=== PATIENT | female | born 1970 | race Caucasian/White ===

== ENCOUNTER → 2017-05-06 | Outpatient (CLI) | payer BC, OTHER ==
[~2017-05-06] MED LIST: AMR2 PO; CHLO0.12 MT; GLC500 PO; HYDRELX3 PO; INSDGI SC; PARO1TAB27 PO; [UNRECOGNIZED DRUG - CODE] SQ
--- NOTE | 2017-05-09 08:01 | MAMMOGRAPHY REPORT ---
BILATERAL DIGITAL SCREENING MAMMOGRAM TOMOSYNTHESIS WITH CAD: 05/06/2017 CLINICAL HISTORY: Routine screening. Patient has no complaints. TECHNIQUE: Breast tomosynthesis in addition to standard 2D mammography was performed. Current study was also evaluated with a Computer Aided Detection (CAD) system. COMPARISON: Comparison is made to exams dated: 05/04/2016 mammogram, 05/02/2015 mammogram, 04/26/2014 ma mmogram, 04/25/2013 mammogram, 04/19/2012 mammogram, and 04/01/2011 mammogram - [facility] er. BREAST COMPOSITION: There are scattered areas of fibroglandular density in both breasts. FINDINGS: No suspicious masses, calcifications, or areas of architectural distortion are noted in ei ther breast. There has been no significant interval change compared to prior exams. IMPRESSION: ACR BI-RADS CATEGORY 1: NEGATIVE There is no mammographic evidence of malignancy. A 1 year screening mammogram is recommended. The pa tient will receive written notification of the results. Approximately 10% of breast cancers are not detected with mammography. A negative mammographic report should not delay biopsy if a clinically suggestive mass is present. Silvia Smith M.D. ah/:05/06/2017 16:01:19 Warning Coordination Meteorologist: Maylin PARIKH(Cecilia)([place])([place]), [facility] letter sent: Normal 1/2 BI-RADS Code: ACR BI-RADS Category 1: Negative
== END | disposition home or self-care (01) ==
LOC: C.MAMM 15:41
PROVIDERS: ATTEND Physician Assistant
DX: Z12.31 Encounter for screening mammogram for malignant neoplasm of breast (principal)

== ENCOUNTER → 2018-05-12 | Outpatient (CLI) | payer BC, OTHER ==
--- NOTE | 2018-05-15 13:56 | MAMMOGRAPHY REPORT ---
BILATERAL DIGITAL SCREENING MAMMOGRAM TOMOSYNTHESIS WITH CAD: 05/12/2018 CLINICAL HISTORY: Routine screening. Patient has no complaints. TECHNIQUE: Breast tomosynthesis in addition to standard 2D mammography was performed. Current study w as also evaluated with a Computer Aided Detection (CAD) system. COMPARISON: Comparison is made to exams dated: 05/06/2017 mammogram, 05/04/2016 mammogram, 05/02/2015 m ammogram, 04/26/2014 mammogram, 04/25/2013 mammogram, and 04/19/2012 mammogram - [facility] er. BREAST COMPOSITION: There are scattered areas of fibroglandular density in both breasts. FINDINGS: No suspicious masses, calcifications, or areas of architectural distortion are noted in either breast . There has been no significant interval change compared to prior exams. IMPRESSION: ACR BI-RADS CATEGORY 1: NEGATIVE There is no mammographic evidence of malignancy. A 1 year screening mammogram is recommended.( 019) The patient will receive written notification of the results. Some breast cancers are not detected with mammography. A negative mammographic report should not meseret y biopsy if a clinically suggestive mass is present. Silvia Smiht M.D. ah/:05/12/2018 16:38:38 Sider: RT Francesca(R)(M), [facility] letter sent: Normal 1/2 BI-RADS Code: ACR BI-RADS Category 1: Negative
== END | disposition home or self-care (01) ==
LOC: C.MAMM 15:25
PROVIDERS: ATTEND Physician Assistant
DX: Z12.31 Encounter for screening mammogram for malignant neoplasm of breast (principal)

== ENCOUNTER 2020-03-12 05:37 | Inpatient (IN) ==
[2020-03-06 15:28] LABS: Basophils # (auto) 0.02 K/uL (0-0.2); Basophils % (auto) 0.3 %; Eosinophils # (auto) 0.15 K/uL (0-0.5); Eosinophils % (auto) 2.1 %; Hematocrit (blood only) 38.3 % (37-47); Hemoglobin 11.7 g/dL (12.0-16.0); Immature Granulocytes # (auto) 0.01 K/uL (0.00-0.02); Immature Granulocytes % (auto) 0.1 %; Lymphocytes # (auto) 1.97 K/uL (1.2-3.4); Lymphocytes % (auto) 27.9 %; Mean Corpuscular Hemoglobin 24.9 pg (25-34); Mean Corpuscular Hgb Conc 30.5 g/dL (32-36); Mean Corpuscular Volume 81.7 fL (80-100); Monocytes # (auto) 0.38 K/uL (0.11-0.59); Monocytes % (auto) 5.4 %; Neutrophils # (auto) 4.54 K/uL (1.4-6.5); Neutrophils % (auto) 64.2 %; Platelet Count 420 K/uL (130-400); RDW Coefficient of Variation 15.6 % (11.5-14.5); RDW Standard Deviation 46.3 fL (36.4-46.3); Red Blood Count 4.69 M/uL (4.2-5.4); White Blood Count 7.07 K/uL (4.8-10.8)
[2020-03-06 15:29] LABS: Appearance Urine Clear (Clear); Bilirubin Urine Negative (Negative); Blood Urine Negative (Negative); Color Urine Yellow; Glucose Urine UA 3+ (Negative); Ketones Urine Negative (Negative); Leukocyte Esterase Urine Negative (Negative); Nitrite Urine Negative (Negative); Protein Urine Negative (Negative); Specific Gravity Urine 1.022 (1.000-1.030); Urobilinogen Urine Negative (Negative)
[2020-03-06 15:38] LABS: Partial Thromboplastin Ratio 1.1; Partial Thromboplastin Time 31.2 Seconds (21.0-31.0); Prothrombin Time 10.9 Seconds (9.0-12.0)
[2020-03-06 15:51] LABS: Poikilocytosis Present; Tear Drop Cells 1+
[2020-03-06 16:01] LABS: Albumin Level 3.3 gm/dl (3.4-5.0); BUN Creatinine Ratio 14.6 (10-20); Blood Urea Nitrogen 16 mg/dl (7-18); Calcium 9.4 mg/dl (8.5-10.1); Carbon Dioxide 28 mmol/L (21-32); Chloride 103 mmol/L (98-107); Est GFR (African American) 68.8; Est GFR (Non-African American) 59.4; Glucose 239 mg/dl (70-99); Potassium 4.4 mmol/L (3.5-5.1); Sodium 136 mmol/L (136-145)
[2020-03-07 05:50] LABS: Estimated Average Glucose 209 mg/dl; Hemoglobin A1C 8.9 % (4.5-5.6)
--- NOTE | 2020-03-07 10:54 | Anesthesiology Consultation ---
Date of Service March 07, 2020 Assessment & Plan Chart Review Chart Review: Acceptable Risk for Surgery and Patient NOT seen in Pre Admission Testing - S/P Left TKA: 10/08/19: SAB x1 at L3 + PNB at [facility] - Check BSG AM DOS Surgeon to be notified of HgbA1c Low risk COVID screening, no sxs. COVID testing per surgeon. Consults Requested none History Surgery Operation Date: 03/12/20 11:20 Proposed Procedures p Right Total Knee Arthroplasty - Antonino Kevin MD Height/Weight Height: 5 ft 6 in Weight: 98.883 kg Allergies Allergy/AdvReac Type Severity Reaction Status Date / Time latex Allergy Intermediate BLISTERS Verified 03/03/20 11:44 pregabalin [From Lyrica] Allergy Intermediate AGITATION Verified 03/03/20 11:44 ragweed pollen Allergy Mild CONGESTION Verified 03/03/20 11:44 oxycodone AdvReac Vomiting, Verified 03/03/20 11:44 headache, constipation Medications Home Medications Medication Instructions Recorded Confirmed Last Taken Glucosamine Complex-MSM 2 cap PO QAM 09/03/19 03/03/20 09/24/19 Jardiance 25 mg PO QAM 09/03/19 03/03/20 10/07/19 07:45 albuterol sulfate 2 inh INHALATION Q6H PRN 09/03/19 03/03/20 Unknown bupropion HCl 150 mg PO BID 09/03/19 03/03/20 10/08/19 04:40 cholecalciferol (vitamin D3) 1,000 unit PO QAM 09/03/19 03/03/20 10/07/19 07:45 [Vitamin D3] clonazepam 1 mg PO QPM 09/03/19 03/03/20 10/07/19 21:00 gabapentin 300 mg PO HS 09/03/19 03/03/20 10/07/19 21:00 gabapentin 600 mg PO ONCE PM 09/03/19 03/03/20 10/07/19 18:00 insulin aspart U-100 [Novolog 1 sliding scale dose SUBCUT 09/03/19 03/03/20 Unknown U-100 Insulin aspart] USEASDIRECTD lidocaine 1 applic TOPICAL BID 09/03/19 03/03/20 10/06/19 21:00 lisinopril 2.5 mg PO QPM 09/03/19 03/03/20 10/07/19 21:00 loratadine 10 mg PO QAM 09/03/19 03/03/20 10/07/19 07:45 multivitamin 1 tab PO QAM 09/03/19 03/03/20 10/07/19 07:45 omega 2-mcd-syj-fish oil [Fish Oil] 1 cap PO QAM 09/03/19 03/03/20 09/24/19 turmeric root extract 500 mg PO QAM 09/03/19 03/03/20 09/24/19 vitamin B complex 1 tab PO QAM 09/03/19 03/03/20 10/07/19 07:45 vitamin E 100 unit PO QAM 09/03/19 03/03/20 09/24/19 magnesium 250 mg PO BID 10/08/19 03/03/20 09/24/19 celecoxib [Celebrex] 200 mg PO BID 30 Days #60 cap 10/10/19 03/03/20 Unknown tramadol 50 - 100 mg PO Q4H PRN #30 tab 10/10/19 03/03/20 Unknown Past Medical History Medical History Asthma inhaler PRN Bilateral polycystic ovarian syndrome Diabetes mellitus, type 2 Diabetic neuropathy both feet and right ankle - numbness and burning Dry eye syndrome Insulin pump in place Obesity Osteoarthritis Seasonal allergies Past Family History Family History Grandfather (Maternal) Family history of diabetes mellitus Mother Family history of diabetes mellitus Sister No problems noted. Other FHx: cancer FHx: colon cancer Past Surgical History Surgical History History of total knee replacement LEFT Hx of dilation and curettage Hx of laparoscopy Hx of sinus surgery Status post repair of complex wound Dog bite to face 2008, required sedation for suturing Social History Smoking Status: Never smoker Do You Dip or Chew Tobacco: No Hx Alcohol Use: Yes alcohol intake frequency: holidays/special occasions only Hx Substance Use: No substance use type: does not use Testing Laboratory Results 03/06/20 H/H 11.7/38.3 PLT 420 K 4.4 BUN 16 creat 1.08 gluc 239 INR 1.0 HgbA1c 8.9% Electrocardiogram Date: 09/11/19 Findings: + NSR @ (64bpm) Chest X-Ray Date: 09/11/19 Findings: + NAD
--- NOTE | 2020-03-11 16:03 | History and Physical Report ---
DATE OF ADMISSION: 03/12/2020 CHIEF COMPLAINT: Chronic right knee pain. HISTORY OF PRESENT ILLNESS: This is a 49-year-old female patient of Dr. Kevin'christina complaining of chronic right knee pain, longstanding, now progressively getting worse. The patient has failed conservative treatment including intraarticular injections, use of anti-inflammatories, a cane and a knee sleeve. The patient has increased pain with weightbearing activities and her pain does interfere with her activities of daily living. The patient has been diagnosed with end-stage osteoarthritis per clinical and radiographic exam in her right knee, and she wishes to proceed with a right total knee arthroplasty. PAST MEDICAL HISTORY: Diabetes mellitus with insulin, obesity. SOCIAL HISTORY: Nonsmoker, nondrinker. FAMILY HISTORY: Noncontributory. REVIEW OF SYSTEMS: Chronic right knee pain, otherwise denies any shortness of breath, chest pain, nausea, vomiting or any other joint complaints. PAST SURGICAL HISTORY: Bilateral knee arthroscopies and left total knee replacement. MEDICATIONS: 1. Bupropion 150 mg b.i.d. 2. Lisinopril 2.5 mg daily. 3. Clonazepam 1 mg 3 times daily. 4. Metformin 500 mg b.i.d. with meals. 5. Naprosyn 500 mg twice daily with food. 6. Proventil 90 mcg actuation inhaler 2 puffs every 4-6 hours p.r.n. 7. NovoLog U-100 insulin aspart as needed. 8. Gabapentin 300 mg 4 times daily. ALLERGIES: No known drug allergies. PHYSICAL EXAMINATION: GENERAL: Well-developed, well-nourished 49-year-old female in no acute distress. She is alert and oriented x3 and pleasant. HEENT: Normocephalic, atraumatic. Extraocular motions are intact. Pupils are equal and reactive to light. HEART: Regular rate and rhythm, no murmurs. LUNGS: Clear. ABDOMEN: Soft, nontender, bowel sounds present. EXTREMITIES: Right knee has a valgus deformity with mild effusion. She has crepitation with passive range of motion, limited range of motion of negative 10 to 100 degrees. She has a positive Silvia's. She is unstable with valgus stress testing. Neurologically and neurovascularly, she is intact in her right lower extremity. DIAGNOSES: 1. Right knee end-stage osteoarthritis. 2. Diabetes mellitus with insulin. 3. Obesity. PLAN: The patient was advised of her diagnosis. Indications, risks, benefits, postop course have all been reviewed. The patient wished to proceed with a right total knee arthroplasty. Necessary consent forms, preoperative testing and clearances will be obtained.
[2020-03-12] MEDS ORDERED: METOCLOPRAMIDE HCL 10 MG TABLET PO SCH (06:00)
[2020-03-12] MEDS ORDERED: LR 500ML BOLUS, THEN 15ML/HR IV SCH (06:00)
[2020-03-12] MEDS ORDERED: ROPIVACAINE 0.5% HCL/PF 150 MG, BUPIVACAINE 0.5% MPF 30 ML, EPINEPHrine 30MG/30ML (OR U... INSTIL SCH (06:00)
[2020-03-12] MEDS ORDERED: TRANEXAMIC ACID 1,000 MG **IV Intra-op IV SCH (06:00)
[2020-03-12] MEDS ORDERED: GABAPENTIN 900 MG DOSE PO SCH (06:00)
[2020-03-12] MEDS ORDERED: CEFAZOLIN 2000MG 2,000 MG/15 ML SYR IV SCH (06:00)
[2020-03-12] MEDS ORDERED: TRANEXAMIC ACID 1,000 MG **IV Pre-op IV SCH (06:00)
[2020-03-12] MEDS ORDERED: CeleBREX 200 MG CAP PO SCH (06:00)
[2020-03-12] MEDS ORDERED: FAMOTIDINE 20 MG TAB PO SCH (06:00)
[2020-03-12] MEDS ORDERED: ACETAMINOPHEN 500 MG TAB PO SCH (06:00)
[2020-03-12] MEDS ORDERED: BUPIVACAINE/EPINEPHRINE 0.25% 1:200,000 30 ML VIAL ONE (06:29)
[2020-03-12] MEDS ORDERED: ORTHO JOINT ANESTHETIC ONE (06:32)
[2020-03-12] MEDS ORDERED: BACITRACIN INJ 50,000 UNIT VIAL ONE (06:32)
[2020-03-12] MEDS ORDERED: BUPIVACAINE 0.5 % 5 MG/1 ML MPF 30ML VIAL ONE (06:35)
[2020-03-12] MEDS ORDERED: MIDAZOLAM HCL 1 MG/ML 2ML VIAL ONE (06:40)
[2020-03-12] MEDS ORDERED: fentaNYL citrate 100 MCG/2 ML VIAL ONE (06:40)
[2020-03-12] MEDS ORDERED: ONDANSETRON INJ 2 MG/ML 2 ML VIAL IV PRN ×2 (06:41→10:50)
[2020-03-12] MEDS ORDERED: ePHEDrine sulfate 50 MG/ML AMP IV PRN (06:41)
[2020-03-12] MEDS ORDERED: ATROPINE SULFATE 0.1 MG/ML 10ML SYR IV PRN (06:41)
[2020-03-12] MEDS ORDERED: fentaNYL citrate 100 MCG/2 ML VIAL IV PRN (06:41)
[2020-03-12] MEDS ORDERED: HYDROmorphone INJ 2 MG/ML SYR/VIAL IV PRN (06:41)
--- NOTE | 2020-03-12 07:00 | History & Physical Bridge Note ---
Date of Service March 12, 2020 History & Physical Bridge Note I have examined the patient, reviewed the History & Physical and in the interval since the performance of the History & Physical I have noted the following changes of clinical significance: no changes noted
[2020-03-12] MEDS ORDERED: ONDANSETRON INJ 2 MG/ML 2 ML VIAL ONE (07:39)
[2020-03-12] MEDS ORDERED: PHENYLEPHRINE 100MCG/ML 5ML SYR ONE (07:39)
[2020-03-12] MEDS ORDERED: LIDOCAINE HCL 2% 2 ML VIAL/AMP(20MG/ML) INFIL ONE (07:39)
[2020-03-12] MEDS ORDERED: PROPOFOL IV EMULSION 10 MG/ML 20 ML VIAL IV ONE ×3 (07:39→08:49)
[2020-03-12] MEDS ORDERED: ePHEDrine sulfate 50 MG/ML SYR ONE (07:39)
--- NOTE | 2020-03-12 08:56 | Post Operative Brief Note ---
Immediate Post Op Note v1 Date of Surgery March 12, 2020 Pre & Post Diagnosis Operation Date: 03/12/20 07:00 Pre-Op Diagnosis: RIGHT KNEE OSTEOARTHRITIS Post-Op Diagnosis: RIGHT KNEE OSTEOARTHRITIS I identified the patient and participated in the time-out.: Yes Procedure Operation Date: 03/12/20 07:00 Actual Procedures p Right Total Knee Arthroplasty, Cemented(Right), lateral release- Antonino Kevin MD Surgeon Antonino Kevin MD Buffet Waiter/Waitress SHERI Castano Estimated Blood Loss 2 Findings Consistent with Post-Op Diagnosis Specimens Bone cuts Drains Hemovac Drain Anesthesia Type MAC Spinal Regional Complications none Disposition Accompanied Patient To Recovery: No Disposition: Recovery Room Overlapping Procedure I was present for: the critical portions of procedure.
--- NOTE | 2020-03-12 10:10 | XRay Report ---
XR knee RT 1 or 2V routine CLINICAL HISTORY: Surgical Post Op COMPARISON: None. DISCUSSION: Anatomic alignment post total right knee arthroplasty. Could contact between prosthetic a nd underlying bone. Expected postoperative soft tissue change IMPRESSION: Anatomic alignment post total right knee arthroplasty. ACT 112: Negative or not required by law. The above report was generated using voice recognition software. It may contain grammatical, syntax or spelling errors. Electronically signed by: Pavel Kim M.D. 03/12/2020 10:09 AM
--- NOTE | 2020-03-12 10:16 | Anesthesiology Progress Note ---
Date of Service March 12, 2020 Anesthesia Post Procedure Vital Signs Vital Signs: Temp Pulse Pulse Resp BP Pulse Ox 03/12/20 10:10 71 17 110/58 L 94 03/12/20 10:00 69 11 L 108/59 L 99 03/12/20 09:50 36.4 C L 69 18 99/59 L 99 03/12/20 09:40 73 22 103/50 L 100 03/12/20 09:30 76 22 95/61 L 97 03/12/20 09:24 36.3 C L 75 16 108/54 L 97 03/12/20 06:40 77 18 113/61 99 03/12/20 06:26 37.5 C 82 20 113/59 L 97 Transfer of Care Handoff Completed per policy Notes Mental Status: alert / awake / arousable and participated in evaluation Patient Amnestic to Procedure: Yes Nausea / Vomiting: adequately controlled Pain: adequately controlled Airway Patency, RR, SpO2: stable & adequate BP & HR: stable & adequate Hydration State: stable & adequate Anesthetic Complications: no major complications apparent and Pt Satisfied with anesthetic care
[2020-03-12] MEDS ORDERED: bisacodyL 10 MG SUPP PR PRN (10:50)
[2020-03-12] MEDS ORDERED: NALOXONE HCL 0.4 MG/1 ML VIAL/CARP IV PRN (10:50)
[2020-03-12] MEDS ORDERED: HYDROmorphone INJ 0.5 MG/0.5 ML SYR IV PRN (10:50)
[2020-03-12] MEDS ORDERED: MAGNESIUM HYDROXIDE SUSP 30 ML UDC PO PRN (10:50)
[2020-03-12] MEDS ORDERED: ALBUTEROL HFA 8 GM INHALER INH PRN (10:53)
[2020-03-12] MEDS ORDERED: PHARMACY GLYCEMIC MGMT CONSULT PRN (10:58)
--- NOTE | 2020-03-12 11:43 | Hospitalist Consultation ---
Date of Consultation March 12, 2020 Assessment & Plan (1) Status post total knee replacement, left: - POD#[address] Kevin - activity and wound care orders as per ortho - pain control with bowel regimen - PT/OT - monitor H/H for acute blood loss anemia and transfuse blood products PRN - Minimal blood loss (2) Diabetes mellitus, type 2: -hgb a1c 7.6 11/2019 -on insulin pump, will continue (3) HTN (hypertension): -BP controlled, continue lisinopril (4) DVT prophylaxis: -Aspirin 81 mg twice daily as per orthopedics Thank you for this consultation. We will follow the patient with you during their hospital stay. You can reach a member of the [facility] Hospitalist Team 11/04 via pager @ [phone]. Supervising Physician Co-Signing Physician Notes Attending addendum: Patient seen and examined care coordinated with Ivory SOTO This is a 49-year-old female with past medical history of type 2 diabetes on insulin pump, DJD of knee Underwent elective left knee surgery/total left knee replacement today [facility]oped[facility] for postop medical management Patient seen at bedside at room 318/1 Comfortable, reports of numbness on the left foot and ankle wearing off, pain is still tolerable on left knee surgical site No complaint of shortness of breath, no cough, no chest pain, no dizzy spell or palpitation No fever or chills Physical exam: Focused General: No sign of distress, awake alert oriented, conversing comfortably Heart: Regular S1-S2, lungs clear to auscultate no wheeze or rales Extremities: Status post left TKA, drain present, draining serosanguineous drainage, normal pulse on left lower extremity Right lower extremity: Normal exam Assessment and plan: Status post left TKA: Continue management as per orthopedics Postop pain appears to be well-controlled for now Type 2 diabetes: On insulin pump Patient follows at [facility] for insulin pump management recent Hemoglobin A1c on 03/06/2020 was 8.9 suggestive of poor control Pharmacy consulted for glycemic management Last BSG 130s, Discussed with pharmacy: Patient will continue with her insulin pump with previous settings With any evidence of postop hyperglycemia, pharmacy will take over for glycemic management /which includes - discontinuation of insulin pump/ starting on basal Lantus and insulin sliding scale Patient is agreeable with the plan Please refer to further documentation by Ivory SOTO for discussion of other chronic issues Thank you for allowing us to participate in the care of the patient, we will continue to follow her during her hospital stay Bre Preciado MD History of Present Illness Reason for Consultation: Postop medical management Requesting Physician: Dr. Kevin Attending Physician: Antonino Kevin MD History of Present Illness 49-year-old female with PMH DM type II on insulin pump, HTN, and other problems listed below who is status post right total knee arthroplasty today by Dr. Kevin. Postoperative, the patient is doing well. She reports her pain is well controlled. She reports some mild residual numbness to lower extremities. She denies chest pain or shortness of breath. No lightheadedness or dizziness. She denies abdominal pain or nausea. She has not voided some surgery. Allergies Allergy/AdvReac Type Severity Reaction Status Date / Time latex Allergy Intermediate BLISTERS Verified 03/12/20 05:57 pregabalin [From Lyrica] Allergy Intermediate AGITATION Verified 03/12/20 05:57 ragweed pollen Allergy Mild CONGESTION Verified 03/12/20 05:57 oxycodone AdvReac Vomiting, Verified 03/12/20 05:57 headache, constipation Home Medications Home Medications Medication Instructions Recorded Confirmed Type Glucosamine Complex-MSM 2 cap PO QAM 09/03/19 03/12/20 History Jardiance 25 mg PO QAM 09/03/19 03/12/20 History albuterol sulfate 2 inh INHALATION Q6H PRN 09/03/19 03/03/20 History bupropion HCl 150 mg PO BID 09/03/19 03/12/20 History cholecalciferol (vitamin D3) 1,000 unit PO QAM 09/03/19 03/12/20 History [Vitamin D3] clonazepam 1 mg PO QPM 09/03/19 03/12/20 History gabapentin 300 mg PO HS 09/03/19 03/12/20 History gabapentin 600 mg PO ONCE PM 09/03/19 03/12/20 History insulin aspart U-100 [Novolog 1 sliding scale dose SUBCUT 09/03/19 03/03/20 History U-100 Insulin aspart] USEASDIRECTD lidocaine 1 applic TOPICAL BID 09/03/19 03/12/20 History lisinopril 2.5 mg PO QPM 09/03/19 03/12/20 History loratadine 10 mg PO QAM 09/03/19 03/12/20 History multivitamin 1 tab PO QAM 09/03/19 03/12/20 History omega 9-cfo-wsy-fish oil [Fish Oil] 1 cap PO QAM 09/03/19 03/12/20 History turmeric root extract 500 mg PO QAM 09/03/19 03/12/20 History vitamin B complex 1 tab PO QAM 09/03/19 03/12/20 History vitamin E 100 unit PO QAM 09/03/19 03/12/20 History magnesium 250 mg PO BID 10/08/19 03/12/20 History celecoxib [Celebrex] 200 mg PO BID 30 Days #60 cap 10/10/19 03/12/20 Rx tramadol 50 - 100 mg PO Q4H PRN #30 tab 10/10/19 03/03/20 Rx aspirin 81 mg PO DAILY 03/12/20 03/12/20 History Patient History Medical History Asthma inhaler PRN Bilateral polycystic ovarian syndrome Diabetes mellitus, type 2 Diabetic neuropathy both feet and right ankle - numbness and burning Dry eye syndrome HTN (hypertension) Insulin pump in place Obesity Osteoarthritis Seasonal allergies Surgical History History of total knee replacement LEFT Hx of dilation and curettage Hx of laparoscopy Hx of sinus surgery Status post repair of complex wound Dog bite to face 2008, required sedation for suturing Family History Grandfather (Maternal) Family history of diabetes mellitus Mother Family history of diabetes mellitus Sister No problems noted. Other FHx: cancer FHx: colon cancer Social History Preferred Language: Mongolian Communication Ability: Effective Senior Software Development Manager Required: No Beliefs That Will Affect Care: None Current Living Situation: Significant Other Feels Safe at Home: Yes Safety Concerns: Feels Safe At This Time Smoking Status: Never smoker Do You Dip or Chew Tobacco: No ; Second Hand Exposure: No ; Hx Alcohol Use: Yes Hx Substance Use: No Review of Systems Review of Systems: ROS per HPI, all other systems reviewed and negative Physical Exam Constitutional: WD/WN, vitals as above Eyes: PERRL, conjunctivae normal, anicteric sclerae ENMT: external ear and nose normal, oropharynx normal Respiratory: normal respiratory effort, lungs clear to auscultation Cardiovascular: Rate/Rhythm: regular rate and regular rhythm Vessels: normal peripheral pulses Extremities: no edema Gastrointestinal (Abdomen): normal bowel sounds, soft, nontender, no hepatosplenomegaly Musculoskeletal: S/p right knee surgery, surgical dressing dry and intact, drain in place draining bloody drainage, CSM checks intact RLE Skin: no rashes, warm and dry Neurologic: PERRL, EOMI, accommodation nl, no face palsy, no dysarthria Psychiatric: A+Ox3, euthymic affect Results & Data Results & Data ([facility]) Vital Signs (Past 12 Hours) Vital Signs Temp Pulse Pulse Resp BP Pulse Ox 03/12/20 11:37 69 16 118/71 99 03/12/20 11:05 70 16 117/73 99 03/12/20 10:35 36.6 C 73 18 103/64 97 03/12/20 10:20 74 18 109/50 L 98 03/12/20 10:10 71 17 110/58 L 94 03/12/20 10:00 69 11 L 108/59 L 99 03/12/20 09:50 36.4 C L 69 18 99/59 L 99 03/12/20 09:40 73 22 103/50 L 100 03/12/20 09:30 76 22 95/61 L 97 03/12/20 09:24 36.3 C L 75 16 108/54 L 97 03/12/20 06:40 77 18 113/61 99 03/12/20 06:26 37.5 C 82 20 113/59 L 97
[2020-03-12] MEDS: SODIUM CHLORIDE 0.9% 1000ML 1,000 ML IV SCH ×2 (11:46→21:42)
[2020-03-12] MEDS ORDERED: GLUCOSE 40% GEL 15 GM TUBE PO PRN (12:45)
[2020-03-12] MEDS ORDERED: DEXTROSE 50% 50 ML SYRINGE IV PRN (12:45)
[2020-03-12] MEDS ORDERED: GLUCAGON FOR INJ 1 MG VIAL SQ PRN (12:45)
[2020-03-12] MEDS ORDERED: INSULIN ASPART 100 UNITS/ML VIAL SC PRN (12:45)
[2020-03-12] MEDS ORDERED: GLUCOSE 10 TABS/TUBE PO PRN (12:45)
[2020-03-12] MEDS ORDERED: CARBOHYDRATES FOR HYPOGLYCEMIA PO PRN (12:45)
--- NOTE | 2020-03-12 12:52 | Pharmacy Report ---
Glycemic Control Consultation - Date of Service March 12, 2020 - Scope Scope: Glycemic Pharmacist consulted for glycemic control and to write orders per [facility] inpatient glycemic control protocol. - Objective Weight: 102.92 kg Accuchecks BSG (last 24hrs): 03/12/20 03/12/20 03/12/20 05:59 09:26 12:07 POC Glucose 131 H 134 H 132 H HbA1c: Hemoglobin A1c 8.9 % (4.5-5.6) H 03/06/20 14:30 - Recent Pertinent Medications Outpatient Anti-diabetic Regimen: * Novolog Insulin Pump: * Basal Rate = 1.3 units/hr * Correction Factor = 30 * Carb Ratio = 8 * Average TDD unknown * Jardiance 25 mg PO daily * A1c = 8.9% from 03/06/20, increased from 7.6% in September 2019 Risk Factors for Insulin Resistance: * Recent Surgery: * POD #0 R TKA * Diet: * T2DM - Assessment & Plan Assessment & Plan: ASSESSMENT: * 49 yo F admitted secondary to right total knee arthroplasty * PMHx significant for T2DM, HTN, PCOS, neuropathy, osteoarthritis * POD #0, no systemic steroids administered perioperatively, BSGs are 130s post-op, T2DM diet ordered * Discussed continuing current insulin pump setting with patient, patient is comfortable with utilizing this. Will monitor for temporary changes/increases needed while in the hospital. PLAN FOR INPATIENT GLYCEMIC CONTROL: * Holding outpatient oral diabetes medications * Pt is to manage BSGs with insulin pump per outpatient settings. * RN will have patient read and sign agreement [id number] Insulin Pump Therapy Patient Agreement. * RN will provide and explain form [id number] Flowsheet for Patient * Patient will document their insulin dose given on NS-824 which is kept at the bedside, available to caregivers upon request, and which becomes part of the permanent medical record. * If at any time the patients condition evidences that he/she is not able to manage the insulin pump (i.e. frequent hypo/hyperglycemia) Pharmacy will assume glycemic control by discontinuing the pump & managing with SQ basal bolus insulin regimen for the interim. * Omnipod Novolog Insulin Pump: * Basal Rate = 1.3 units/hr * Correction Factor = 30 * Carb Ratio = 8 * Please note that the plan above was derived based on current level of insulin resistance and hospital stress. These recommendations are appropriate for inpatient admission only. Plan of care upon discharge will need to be reassessed to avoid potential outpatient hypo/hyperglycemia. Thank you.
[2020-03-12] MEDS: ACETAMINOPHEN 500 MG TAB PO SCH ×2 (14:07→21:45)
--- NOTE | 2020-03-12 15:54 | Operative Report ---
Post Operative Report Pre & Post Diagnosis Operation Date: 03/12/20 07:00 Pre-Op Diagnosis: RIGHT KNEE OSTEOARTHRITIS Post-Op Diagnosis: RIGHT KNEE OSTEOARTHRITIS I identified the patient and participated in the time-out.: Yes Procedure Operation Date: 03/12/20 07:00 Actual Procedures p Right Total Knee Arthroplasty, Cemented(Right) - Antonino Kevin MD Surgeon Antonino Kevin MD Bilingual Hr Generalist SHERI Castano Estimated Blood Loss 2 Findings Consistent with Post-Op Diagnosis Specimens Bone cuts Drains 2 Hemovac Anesthesia Type MAC Spinal Regional Complications none Disposition Accompanied Patient To Recovery: No Disposition: Recovery Room Indications 49-year-old female with severe tricompartmental osteoarthritis of right knee failed conservative management. Patient had a more severe left knee and underwent successful left knee replacement. Patient is doing well with that knee procedure and chooses to proceed with the right knee procedure. Patient is a valgus knee zfyd-yq-afil lateral compartment but has severe tricompartmental OA changes. Description of Procedure The patient was taken to the operating room and anesthetized under spinal MAC regional. Patient was placed supine on the the operating table. A pneumatic tourniquet was placed about the right upper thigh. The knee exam demonstrated valgus alignment to the knee around 20 degrees. Patient has a 10 degree flexion contracture and flexion of 125 degrees. There was some MCL laxity and valgus alignment due to bone loss lateral compartment.. The involved leg was elevated exsanguinated with Esmarch bandage and the pneumatic tourniquet was raised to 300 millimeters mercury. A longitudinal incision was made across the anterior knee. Skin flaps were elevated. An incision was made into the medial retinaculum and extended up into the mid third of the quadriceps tendon and extended down to the tibial tubercle. Intra-articular findings demonstrated severe tricompartmental osteoarthritis. Yegm-gg-yeig the lateral compartment with some bone loss tfkh-uz-tuel medial compartment on the lateral aspect medial femoral condyle and grade 4 patellofemoral OA. There are tricompartmental osteophytes. Patient had mucoid degeneration of her ACL. There was a chronic displaced lateral meniscus tear. The knee was exposed by excising cruciate ligaments and menisci. The infrapatellar fat pad was resected. The fat pad over the anterior femur at the upper aspect of the articular surface was resected for placement of the component in that area. A subperiosteal peel lateral release was performed around the patella The [employer] Chalk[employer] total knee arthroplasty system was utilized for the procedure. The drill hole was made into the femur and intramedullary guide gilberto was placed in the distal femoral cut was adjusted to resect a +2 distal cut at a 6 degree valgus. The distal femoral cut was made. The size 4, 5 in 1 cutting block was placed. The anterior posterior and chamfer cuts were made. The knee was extended and a free hand cut technique was performed to the patella. The patella with was measured and the width was reproduced using a 32 symmetrical patella component. 3 drill holes are made for the patella component pegs. The tibia was then subluxed. The external tibial cutting guide was pinned in position and the proximal tibial cut was made with the oscillating saw. The size 4 tibial trial was externally rotated in line with the tibial tubercle and pinned in position. The punch for the stem was used. The femoral trial was inserted and centered the notch cutting devices were used and the collet was placed. Tibial trials were used for the insert. The size 13 high flex trial gave balanced ligaments through full range of motion. Patella tracking was assessed with range of motion. The patella tracked centrally through mid motion but at the final deep flexion there was some lateral translation so I felt a lateral release would improve this and a lateral lease performed leaving remainder the synovium intact improved the tracking centrally through full motion. The trials were removed. The Orthomix anesthetic cocktail was injected per protocol. The cut bone surfaces and soft tissue were copiously irrigated with antibiotic solution with bacitracin. The final components were cemented with Simplex cement. The final components were [employer] [facility] size 4 right posterior stabilized femoral component, 4 primary tibial baseplate, 13 mm high flex polyethylene tibial bearing insert, 32 symmetrical patella.. While the cement cured the Betadine soak was used per protocol. When the cement cured the knee was copiously irrigated with pulsatile lavage antibiotic solution with bacitracin. 2 drains were brought out laterally connected to Hemovac. The quadriceps tendon and medial retinaculum were closed with interrupted [id number] #1 Vicryl sutures. The knee was taken through full range of motion and repair was secure. The subcutaneous tissues were closed with 2-0 Vicryl sutures. The skin was closed with pat. A sterile dressing was applied. The tourniquet was let down and the patient had good capillary refill to the extremity. The patient tolerated the procedure well. My physician health education assistant SHERI Castano assisted in the procedure including prep ping draping leg positioning soft tissue retraction instrument management and assisted in the closure ,dressings application and will participate in postoperative care the patient. I attest to the content of the Intraoperative Record and any orders documented therein. Any exceptions are noted below.
[2020-03-12] MEDS: CEFAZOLIN 2000MG 2,000 MG/15 ML SYR IV SCH ×2 (17:06→23:39)
[2020-03-12] MEDS ORDERED: Nursing to Pharmacy Communication SCH (17:30)
[2020-03-12] MEDS ORDERED: GABAPENTIN 300 MG CAP PO SCH ×2 (18:00→21:00)
[2020-03-12] MEDS: NovoLOG INSULIN PUMP SCH ×2 (18:36→21:59)
[2020-03-12] MEDS ORDERED: SENNA 8.6 MG TAB PO SCH (21:00)
[2020-03-12] MEDS ORDERED: clonazePAM 1 MG TAB PO SCH (21:00)
[2020-03-12] MEDS: CeleBREX 200 MG CAP PO SCH (21:43)
[2020-03-12] MEDS: ASPIRIN 81 MG ECTAB PO SCH (21:44)
[2020-03-12] MEDS: MAGNESIUM OXIDE 400 MG TAB PO SCH (21:44)
[2020-03-12] MEDS: BuPROPion SR 150 MG TABCR PO SCH (21:45)
[2020-03-12] MEDS: LIDOCAINE HCL 5% OINT 30 GM TUBE TOP SCH (21:45)
[2020-03-12] MEDS: DOCUSATE SODIUM 100 MG CAP PO SCH (21:49)
[2020-03-12] MEDS: HYDROmorphone HCL 2 MG TAB PO PRN (21:54)
[2020-03-13] MEDS: HYDROmorphone HCL 2 MG TAB PO PRN ×3 (02:20→14:02)
[2020-03-13] MEDS: ACETAMINOPHEN 500 MG TAB PO SCH ×2 (06:20→14:04)
[2020-03-13 06:58] LABS: Hematocrit (blood only) 31.4 % (37-47); Hemoglobin 9.2 g/dL (12.0-16.0); Mean Corpuscular Hemoglobin 24.1 pg (25-34); Mean Corpuscular Hgb Conc 29.3 g/dL (32-36); Mean Corpuscular Volume 82.2 fL (80-100); Platelet Count 367 K/uL (130-400); RDW Coefficient of Variation 15.5 % (11.5-14.5); RDW Standard Deviation 46.6 fL (36.4-46.3); Red Blood Count 3.82 M/uL (4.2-5.4); White Blood Count 7.35 K/uL (4.8-10.8)
[2020-03-13 07:28] LABS: BUN Creatinine Ratio 15.3 (10-20); Calcium 8.5 mg/dl (8.5-10.1); Creatinine Clr Calc Pharmacy 93.8 ml/min; Est GFR (African American) 90.7; Est GFR (Non-African American) 78.2; Potassium 4.2 mmol/L (3.5-5.1)
--- NOTE | 2020-03-13 08:16 | Orthopedic Progress Note ---
Date of Service March 13, 2020 Assessment & Plan (1) Arthritis of right knee: POD #1, Right TKA. PT/ OT DT proph- ASA D/C plans - Home today with OPPT. Admission and Anticipated Discharge Date Admission Date: March 12, 2020 Subjective POD #1, Feeling well. Pain controlled well. Denies SOB/ CP/ N/V. Would like to D/C home today. Labs stable. Heme vac output around 120 last shift. Physical Exam Physical Exam: Right knee dressings c/d/i, some bloody seepage. Toes/ ankle mobile. No calf tenderness. A&Ox3. Results & Data ([facility]) Vital Signs (Past 12 Hours) Vital Signs Temp Pulse Resp BP Pulse Ox 03/13/20 07:28 36.6 C 63 16 111/68 97 03/13/20 02:58 36.8 C 74 16 101/63 95 03/12/20 23:36 36.8 C 82 16 117/69 96 03/12/20 20:59 36.6 C 77 18 125/67 98
[2020-03-13] MEDS ORDERED: GLUCOSAMINE MSM MAGNESIUM VITC PO SCH (09:00)
[2020-03-13] MEDS ORDERED: VITAMIN B COMPLEX TAB PO SCH (09:00)
[2020-03-13] MEDS ORDERED: LORATADINE 10 MG TAB PO SCH (09:00)
[2020-03-13] MEDS ORDERED: MULTIVITAMIN TAB PO SCH ×2 (09:00)
[2020-03-13] MEDS ORDERED: TOCOPHERYL, DL-ALPHA 100 UNITS CAP PO SCH (09:00)
[2020-03-13] MEDS ORDERED: CHOLECALCIFEROL 1,000 UNITS 25 MCG TAB PO SCH (09:00)
--- NOTE | 2020-03-13 09:13 | Hospitalist Progress Note ---
Date of Service March 13, 2020 Assessment & Plan (1) Status post total knee replacement, left: POD#[address] Kevin EBL 2ml; Hemovac 120 ml tolerated procedure well pain/wound management per ortho activity and therapy as directed by ortho continue incentive spirometry H&H 9.2 and 31.4 (preop hemoglobin 11.7 and 38.3) ASA BID per ortho for dvt prophylaxis (2) Anemia: H&H stable pt with minimal blood loss drop in h/h likely dilutional h/h 9.2 and 31.4 (3) Diabetes mellitus, type 2: hgb a1c 7.6 11/2019 on insulin pump, will continue BSG 129 this morning (4) HTN (hypertension): BP controlled, continue lisinopril (5) DVT prophylaxis: Aspirin 81 mg twice daily as per orthopedics Pt was seen and examined in collaboration with Dr. Reynolds, please see addendum Thank you for this consultation. We will follow the patient with you during their hospital stay. You can reach a member of the [facility] Hospitalist Team 11/04 via pager @ [phone]. Admission and Anticipated Discharge Date Admission Date: March 12, 2020 Supervising Physician Co-Signing Physician Notes Attending addendum The patient was seen and examined in medical floor She is a status post right total knee arthroplasty Complains today of some pain in the right knee Denies any other symptoms On examination Hemodynamically stable Chest-clear to auscultate bilaterally Heart-S1-S2 irregular Abdomen-benign Extremities-status post right knee arthroplasty otherwise unremarkable Her labs and imaging studies reviewed Medically stable to be discharged Agree with assessment and plan as outlined above by CARMINE Mccollum Dr Subjective Patient was seen and examined in room 318. Follow-up POD #[address] Kevin. Overall feels well this morning. Anticipating discharge later today. BSG was 129 this a.m. She is insulin dependent and has a pump on L tricep. Denies f/c/s, dizziness, lightheaded, chest pain, sob, n/v/abdominal pain. +Flatus. Mild R knee incisional discomfort. Offers no acute concerns. Review of Systems Review of Systems: All systems reviewed & are unremarkable except as noted in HPI & below Physical Exam Physical Exam: Gen: WD/WN, NAD, F, A&O x3 HEENT: Normocephalic, atraumatic, conjunctivae moist, sclerae anicteric, mucous membranes moist. Lung: Clear to Auscultation bilaterally, no wheezes/rales/rhonchi Heart: Regular rate, regular rhythm, no murmurs, rubs, or gallops Abdomen: Soft, NT, ND +BS x 4 Extremities: RLE edema, Dressing CDI, no erythema, +hemovac in place, No edema to LLE, L TKA scar noted, L tricep insulin pump noted Skin: Warm, no rash, negative turgor. Results & Data Results & Data ([facility]) Vital Signs (Past 12 Hours) Vital Signs Temp Pulse Resp BP Pulse Ox 03/13/20 07:28 36.6 C 63 16 111/68 97 03/13/20 02:58 36.8 C 74 16 101/63 95 03/12/20 23:36 36.8 C 82 16 117/69 96 Laboratory Results Short CBC 03/13/20 Range/Units 06:29 WBC 7.35 (4.8-10.8) K/uL Hgb 9.2 L (12.0-16.0) g/dL Hct 31.4 L (37-47) % Plt Count 367 (130-400) K/uL BMP 03/13/20 06:29 Sodium 141 Potassium 4.2 Chloride 108 H Carbon Dioxide 26 BUN 13 Creatinine 0.86 Glucose 129 H Calcium 8.5 Medications Administered Acetaminophen (Tylenol) 1,000 mg PO Q8 [facility] Stop: 04/11/20 13:59 Last Admin: 03/13/20 06:20 Dose: 1,000 mg Documented by: [id number] Admin: 03/12/20 21:45 Dose: 1,000 mg Documented by: [id number] Admin: 03/12/20 14:07 Dose: 1,000 mg Documented by: [id number] Aspirin (Ecotrin Ectab) 81 mg PO BID [facility] Stop: 04/11/20 20:59 Last Admin: 03/12/20 21:44 Dose: 81 mg Documented by: [id number] Bupropion HCl (Wellbutrin-Sr) 150 mg PO BID [facility] Stop: 04/11/20 20:59 Last Admin: 03/12/20 21:45 Dose: 150 mg Documented by: [id number] Celecoxib (Celebrex) 200 mg PO BID [facility] Stop: 04/11/20 20:59 Last Admin: 03/12/20 21:43 Dose: 200 mg Documented by: [id number] Clonazepam (Klonopin) 1 mg PO QPM [facility] Stop: 04/11/20 20:59 Last Admin: 03/12/20 21:44 Dose: 1 mg Documented by: [id number] Docusate Sodium (Colace) 100 mg PO BID [facility] Stop: 04/11/20 20:59 Last Admin: 03/12/20 21:49 Dose: Not Given Documented by: [id number] Hydromorphone HCl (Dilaudid) 0.5 mg IV Q4H PRN PRN Reason: Pain or Pre PT Stop: 03/26/20 10:49 Last Admin: 03/12/20 15:57 Dose: 0.5 mg Documented by: [id number] Hydromorphone HCl (Dilaudid) 2 - 4 mg PO Q4H PRN PRN Reason: Pain Stop: 03/26/20 10:49 Last Admin: 03/13/20 02:20 Dose: 2 mg Documented by: [id number] Admin: 03/12/20 21:54 Dose: 4 mg Documented by: [id number] Insulin Aspart (Novolog Insulin Pump) 1 ea N/A [facility]; Protocol Stop: 04/11/20 16:29 Last Admin: 03/12/20 21:59 Dose: 1 ea Documented by: [id number] Admin: 03/12/20 18:36 Dose: 1 ea Documented by: [id number] Lidocaine (Xylocaine 5% Oint) 1 appln TOP BID [facility] Stop: 04/11/20 20:59 Last Admin: 03/12/20 21:45 Dose: 1 appln Documented by: [id number] Lisinopril (Zestril) 2.5 mg PO QPM [facility] Stop: 04/11/20 20:59 Last Admin: 03/12/20 21:44 Dose: 2.5 mg Documented by: [id number] Magnesium Oxide (Mag-Ox) 400 mg PO BID [facility] Stop: 04/11/20 20:59 Last Admin: 03/12/20 21:44 Dose: 400 mg Documented by: [id number] Sennosides (Senokot) 17.2 mg PO HS [facility] Stop: 04/11/20 20:59 Last Admin: 03/12/20 21:54 Dose: 17.2 mg Documented by: [id number] Discontinued Medications Acetaminophen (Tylenol) 1,000 mg PO PREOP [facility] Stop: 03/12/20 18:00 Last Admin: 03/12/20 06:16 Dose: 1,000 mg Documented by: [id number] Bacitracin (Bacitracin) Confirm Administered Dose 50,000 units .ROUTE .[facility] Stop: 03/12/20 06:33 Last Admin: 03/12/20 08:35 Dose: 50,000 units Documented by: [id number] Celecoxib (Celebrex) 200 mg PO PREOP [facility] Stop: 03/12/20 18:00 Last Admin: 03/12/20 06:17 Dose: 200 mg Documented by: [id number] Famotidine (Pepcid) 20 mg PO PREOP [facility] Stop: 03/12/20 18:00 Last Admin: 03/12/20 11:36 Dose: Not Given Documented by: [id number] Gabapentin (Neurontin) 900 mg PO PREOP [facility] Stop: 03/12/20 18:00 Last Admin: 03/12/20 06:17 Dose: 900 mg Documented by: [id number] Lactated Ringer's (Lr) 1,000 mls @ 15 mls/hr IV .Q24H [facility] Stop: 03/12/20 18:00 Last Infusion: 03/12/20 06:56 Dose: 0 mls/hr Documented by: [id number] Admin: 03/12/20 06:16 Dose: 15 mls/hr Documented by: [id number] Cefazolin Sodium (Ancef 2000mg) 2,000 mg in 15 mls @ 3.75 mls/min IV PREOP [facility]; Protocol Stop: 03/12/20 18:00 Last Admin: 03/12/20 06:56 Dose: 3.75 mls/min Documented by: [id number] Ropivacaine 150 mg/Bupivacaine HCl 30 ml/Epinephrine HCl 0.15 mg/Ketorolac Tromethamine 30 mg/Dexamethasone 4 mg/ Ketamine HCl 10 mg/ Clonidine HCl 100 mcg/ Sodium Chloride 93.35 mls @ 0 mls/hr INSTIL PREOP [facility] Stop: 03/12/20 06:01 Last Admin: 03/12/20 08:35 Dose: 93.3 mls/hr Documented by: [id number] Tranexamic Acid (Tranexamic Acid / 0.7% Nacl) 1,000 mg in 100 mls @ 600 mls/hr IV TODAY@0600 [facility] Stop: 03/12/20 18:00 Last Infusion: 03/12/20 07:08 Dose: 0 mls/hr Documented by: [id number] Admin: 03/12/20 06:58 Dose: 600 mls/hr Documented by: [id number] Tranexamic Acid (Tranexamic Acid / 0.7% Nacl) 1,000 mg in 100 mls @ 600 mls/hr IV TODAY@0600 [facility] Stop: 03/12/20 18:00 Last Infusion: 03/12/20 11:36 Dose: 0 mls/hr Documented by: [id number] Admin: 03/12/20 09:06 Dose: 600 mls/hr Documented by: [id number] Sodium Chloride (Nss 1000ml) 1,000 mls @ 100 mls/hr IV .Q10H [facility] Stop: 03/13/20 06:00 Last Infusion: 03/13/20 06:42 Dose: 0 mls/hr Documented by: [id number] Admin: 03/12/20 21:42 Dose: 100 mls/hr Documented by: [id number] Infusion: 03/12/20 21:42 Dose: 100 mls/hr Documented by: [id number] Admin: 03/12/20 11:46 Dose: 100 mls/hr Documented by: [id number] Cefazolin Sodium (Ancef 2000mg) 2,000 mg in 15 mls @ 3.75 mls/min IV Q8H [facility]; Protocol Stop: 03/13/20 00:03 Last Admin: 03/12/20 23:39 Dose: 3.75 mls/min Documented by: [id number] Admin: 03/12/20 17:06 Dose: 3.75 mls/min Documented by: [id number] Metoclopramide HCl (Reglan) 10 mg PO PREOP [facility] Stop: 03/12/20 18:00 Last Admin: 03/12/20 06:17 Dose: 10 mg Documented by: [id number] Miscellaneous (Ortho Joint Anesthetic) Confirm Administered Dose 1 ea .ROUTE .[facility] Stop: 03/12/20 06:33 Last Admin: 03/12/20 08:35 Dose: Not Given Documented by: [id number]
[2020-03-13] MEDS: BuPROPion SR 150 MG TABCR PO SCH (09:24)
[2020-03-13] MEDS: CeleBREX 200 MG CAP PO SCH (09:24)
[2020-03-13] MEDS: MAGNESIUM OXIDE 400 MG TAB PO SCH (09:24)
[2020-03-13] MEDS: DOCUSATE SODIUM 100 MG CAP PO SCH (09:24)
[2020-03-13] MEDS: ASPIRIN 81 MG ECTAB PO SCH (09:25)
[2020-03-13] MEDS: LIDOCAINE HCL 5% OINT 30 GM TUBE TOP SCH (09:25)
[2020-03-13] MEDS: NovoLOG INSULIN PUMP SCH ×2 (09:25→12:45)
--- NOTE | 2020-03-26 13:47 | Discharge Summary (DS) ---
HISTORY OF PRESENT ILLNESS: This is a 49-year-old female patient of Dr. Kevin'christina complaining of chronic right knee pain, longstanding, progressively getting worse. The patient failed conservative treatment and was diagnosed with end-stage osteoarthritis per clinical and radiographic exams. The patient elected to proceed with a right total knee arthroplasty. PAST MEDICAL HISTORY: Diabetes mellitus with insulin and obesity. POSTOPERATIVE COURSE: The patient underwent a right total knee arthroplasty on 03/12/2020. She was followed closely with medical consultation, DVT prophylaxis in the form of aspirin, physical therapy and pain control. The patient did very well postoperatively and was discharged home on postoperative day #1. Laboratory studies were stable. PHYSICAL EXAM: On discharge, right knee dressings were clean, dry and intact. Toes and ankle were mobile. No calf tenderness. Negative Homans sign. Neurologically and vascularly intact in her right lower extremity. DIAGNOSES: Status post right total knee arthroplasty, diabetes mellitus and obesity. PLAN: The patient was discharged home with home health services on postoperative day #1. She will continue her preadmission medications with the addition of aspirin and pain medications. The patient was explained dressing change protocol and her Hemovac drain was discontinued before leaving the hospital. The patient will follow up as an outpatient as scheduled.
== END 2020-03-13 14:30 | disposition home or self-care (01) | DRG 470 ==
LOC: 3E 05:37 → ASU 05:37 → OBSVTOIN 09:35

== ENCOUNTER 2020-07-01 10:52 | Inpatient (IN) ==
--- NOTE | 2020-06-30 08:54 | Anesthesiology Consultation ---
Date of Service June 30, 2020 Assessment & Plan (1) Encounter for pre-operative examination: COVID Status: As of 06/27 nurse assessment, patient denies travel to endemic area, known exposure/sick contacts, or symptoms of COVID19. Preoperative COVID19 testing completed on 06/27, results pending. Preoperative CBC not completed. Most recent H/H of 9.2/31.4% (03/13/20) was from discharge after R TKA. Will update AM DOS. BSG AM DOS R TKA 03/12/20 = SAB @ L3-L4, PNB x 1 attempt. Chart Review Chart Review: Acceptable Risk for Surgery (pending labs AM DOS) and Patient NOT seen in Pre Admission Testing History Surgery Operation Date: 07/01/20 13:00 Proposed Procedures p Left Total Knee Revision to Cement Spacer, Irrigation and Debridement - Antonino Kevin MD Height/Weight Height: 5 ft 6 in Weight: 98.883 kg Allergies Allergy/AdvReac Type Severity Reaction Status Date / Time latex Allergy Intermediate BLISTERS Verified 06/27/20 16:07 pregabalin [From Lyrica] Allergy Intermediate AGITATION Verified 06/27/20 16:07 ragweed pollen Allergy Mild CONGESTION Verified 06/27/20 16:07 oxycodone AdvReac Vomiting, Verified 06/27/20 16:07 headache, constipation Medications Home Medications Medication Instructions Recorded Confirmed Last Taken Glucosamine Complex-MSM 2 cap PO QAM 09/03/19 06/27/20 02/27/20 Jardiance 25 mg PO QAM 09/03/19 06/27/20 03/11/20 10:00 albuterol sulfate 2 inh INHALATION Q6H PRN 09/03/19 06/27/20 Unknown bupropion HCl 150 mg PO BID 09/03/19 06/27/20 03/12/20 05:20 cholecalciferol (vitamin D3) 1,000 unit PO QAM 09/03/19 06/27/20 02/27/20 [Vitamin D3] clonazepam 1 mg PO QPM 09/03/19 06/27/20 03/11/20 21:00 gabapentin 300 mg PO HS 09/03/19 06/27/20 03/11/20 21:00 gabapentin 600 mg PO QDD 09/03/19 06/27/20 03/11/20 17:00 insulin aspart U-100 [Novolog 1 sliding scale dose SUBCUT 09/03/19 06/27/20 Unknown U-100 Insulin aspart] USEASDIRECTD lidocaine 1 applic TOPICAL BID 09/03/19 06/27/20 03/11/20 23:00 lisinopril 2.5 mg PO QPM 09/03/19 06/27/20 03/11/20 21:00 loratadine 10 mg PO QAM 09/03/19 06/27/20 03/11/20 10:00 multivitamin 1 tab PO QAM 09/03/19 06/27/20 02/27/20 turmeric root extract 500 mg PO QAM 09/03/19 06/27/20 02/27/20 vitamin B complex 1 tab PO QAM 09/03/19 06/27/20 02/27/20 vitamin E 100 unit PO QAM 09/03/19 06/27/20 02/27/20 magnesium 250 mg PO BID 10/08/19 06/27/20 02/27/20 celecoxib [Celebrex] 200 mg PO BID 30 Days #60 cap 10/10/19 06/27/20 03/11/20 17:00 Past Medical History Medical History Asthma inhaler PRN Bilateral polycystic ovarian syndrome Diabetes mellitus, type 2 Diabetic neuropathy both feet and right ankle - numbness and burning Dry eye syndrome HTN (hypertension) Insulin pump in place Obesity Osteoarthritis Seasonal allergies Past Family History Family History Grandfather (Maternal) Family history of diabetes mellitus Mother Family history of diabetes mellitus Sister No problems noted. Other FHx: cancer FHx: colon cancer Past Surgical History Surgical History (Updated 06/27/20 @ 16:12 by Bruna Sands RN) History of total knee replacement right and LEFT Hx of dilation and curettage Hx of laparoscopy Hx of sinus surgery Status post repair of complex wound Dog bite to face 2008, required sedation for suturing Social History Smoking Status: Never smoker Do You Dip or Chew Tobacco: No Hx Alcohol Use: No alcohol intake frequency: holidays/special occasions only Hx Substance Use: No substance use type: does not use Testing Laboratory Results 06/27/20 SODIUM: 136 POTASSIUM: 3.9 CHLORIDE: 102 CO2: 29 BUN: 12 CREATININE: 1.04 GLUCOSE: 124 PTT: 31.3 A1C: 8.1%* *Surgeon's office notified of A1C > 8 Electrocardiogram Date: 09/11/19 Findings: + NSR @ (64bpm) Chest X-Ray Date: 09/11/19 Findings: + NAD
--- NOTE | 2020-06-30 18:45 | History and Physical Report ---
DATE OF ADMISSION: 07/01/2020 CHIEF COMPLAINT: Chronic left knee swelling and increased pain. HISTORY OF PRESENT ILLNESS: This is a 49-year-old female patient of Dr. Kevin'christina complaining of chronic left knee pain, swelling and pain in knee since 12/2019. The patient is status post left total knee arthroplasty in 09/2019. She failed conservative treatment and aspiration was sent for culture. She was considered positive for infection. She reports no fevers, chills, or illness but she is scheduled for a left knee revision with placement of antibiotic spacer. History of DM with insulin pump, obesity SOCIAL HISTORY: Nonsmoker and nondrinker. PAST SURGICAL HISTORY: Left knee replacement, right knee replacement. FAMILY HISTORY: Noncontributory. REVIEW OF SYSTEMS: Chronic left knee swelling and pain with confirmed culture of infection. Otherwise, denies any shortness of breath, chest pain, nausea, vomiting or any other joint complaints. PHYSICAL EXAMINATION: GENERAL: Well-developed, well-nourished 49-year-old female. She is in no acute distress. She is afebrile. She is alert and oriented x3 and pleasant. HEENT: Normocephalic, atraumatic. Extraocular motions are intact. Pupils are equal and reactive to light. HEART: Regular rate and rhythm, no murmurs. LUNGS: Clear. ABDOMEN: Soft, nontender, bowel sounds present. EXTREMITIES: Left knee range of motion of 0-95 with a large effusion. She is stable. Her skin is intact. She has a neutral alignment. Neurologically and neurovascularly, she is intact in her left lower extremity. DIAGNOSES: Left knee infection, status post total knee arthroplasty. She has a history of diabetes mellitus with insulin pump, obesity. PLAN: The patient was advised of her diagnosis. Indications, risks, benefits, postop course have all been reviewed. The patient wished to proceed with a left total knee arthroplasty revision to an antibiotic cement spacer. Necessary consent forms, preoperative testing and clearances will be obtained. JUSTEN
[~2020-07-01 10:52] MED LIST changes: +ACETAMINOPHEN 500 MG TAB PO SCH; -AMR2 PO; +BUPIVACAINE 0.25% 30 ML VIAL ONE; +BUPIVACAINE 0.5 % 5 MG/1 ML PF 10ML VIAL ONE; -CHLO0.12 MT; +CeleBREX 200 MG CAP PO SCH; +FAMOTIDINE 20 MG TAB PO SCH; +GABAPENTIN 900 MG DOSE PO SCH; -GLC500 PO; -HYDRELX3 PO; -INSDGI SC; +LR 500ML BOLUS, THEN 15ML/HR IV SCH; +METOCLOPRAMIDE HCL 10 MG TABLET PO SCH; +MIDAZOLAM HCL 1 MG/ML 2ML VIAL ONE; -PARO1TAB27 PO; +TRANEXAMIC ACID 1,000 MG **IV Intra-op IV SCH; +TRANEXAMIC ACID 1,000 MG **IV Pre-op IV SCH; +VANCOMYCIN HCL 1,500 MG in SODIUM CHLORIDE 0.9% 500 ML IV SCH; -[UNRECOGNIZED DRUG - CODE] SQ; +ceFAZolin 2000MG 2,000 MG/15 ML SYR IV SCH
[2020-07-01 11:35] LABS: Basophils # (auto) 0.02 K/uL (0-0.2); Basophils % (auto) 0.2 %; Eosinophils # (auto) 0.05 K/uL (0-0.5); Eosinophils % (auto) 0.5 %; Hematocrit (blood only) 35.3 % (37-47); Hemoglobin 10.7 g/dL (12.0-16.0); Immature Granulocytes # (auto) 0.01 K/uL (0.00-0.02); Immature Granulocytes % (auto) 0.1 %; Lymphocytes # (auto) 2.76 K/uL (1.2-3.4); Lymphocytes % (auto) 29.5 %; Mean Corpuscular Hemoglobin 22.5 pg (25-34); Mean Corpuscular Hgb Conc 30.3 g/dL (32-36); Mean Corpuscular Volume 74.3 fL (80-100); Mean Platelet Volume 8.5 fL (7.4-10.4); Monocytes # (auto) 0.67 K/uL (0.11-0.59); Monocytes % (auto) 7.2 %; Neutrophils # (auto) 5.86 K/uL (1.4-6.5); Neutrophils % (auto) 62.5 %; Platelet Count 428 K/uL (130-400); RDW Coefficient of Variation 16.6 % (11.5-14.5); RDW Standard Deviation 45.7 fL (36.4-46.3); Red Blood Count 4.75 M/uL (4.2-5.4); White Blood Count 9.37 K/uL (4.8-10.8)
[2020-07-01 11:46] LABS: INR 1.1 (0.9-1.1); Partial Thromboplastin Ratio 1.1; Partial Thromboplastin Time 31.6 Seconds (21.0-31.0); Prothrombin Time 11.5 Seconds (9.0-12.0)
[2020-07-01 11:55] LABS: Anisocytosis Present
[2020-07-01] MEDS ORDERED: BACITRACIN INJ 50,000 UNIT VIAL ONE ×2 (11:59→15:59)
[2020-07-01] MEDS ORDERED: ONDANSETRON INJ 2 MG/ML 2 ML VIAL IV PRN (12:47)
[2020-07-01] MEDS ORDERED: ePHEDrine sulfate 50 MG/ML AMP IV PRN (12:47)
[2020-07-01] MEDS ORDERED: HYDROmorphone INJ 2 MG/ML SYR/VIAL IV PRN (12:47)
[2020-07-01] MEDS ORDERED: fentaNYL citrate 100 MCG/2 ML VIAL IV PRN (12:47)
[2020-07-01] MEDS ORDERED: PROMETHAZINE HCL 12.5 MG in SODIUM CHLORIDE 0.9% 50 ML IV PRN (12:47)
[2020-07-01] MEDS ORDERED: ATROPINE SULFATE 0.1 MG/ML 10ML SYR IV PRN (12:47)
[2020-07-01] MEDS ORDERED: BUPIVACAINE/EPINEPHRINE 0.25% 1:200,000 30 ML VIAL ONE (13:03)
[2020-07-01] MEDS ORDERED: BUPIVACAINE 0.5 % 5 MG/1 ML PF 10ML VIAL ONE (13:03)
--- NOTE | 2020-07-01 13:13 | History & Physical Bridge Note ---
Date of Service July 01, 2020 History & Physical Bridge Note I have examined the patient, reviewed the History & Physical and in the interval since the performance of the History & Physical I have noted the following changes of clinical significance: no changes noted, emergent surgery indicated today due to septic knee replacement. Patient COVID-19 testing was inconclusive but indication for surgery today despite status of result.
[2020-07-01] MEDS ORDERED: MIDAZOLAM HCL 1 MG/ML 2ML VIAL ONE (13:45)
[2020-07-01] MEDS ORDERED: VANCOMYCIN HCL 1000MG/20ML VIAL ONE ×2 (13:47→16:04)
[2020-07-01] MEDS ORDERED: LIDOCAINE HCL 2% 2 ML VIAL/AMP(20MG/ML) INFIL ONE (14:10)
[2020-07-01] MEDS ORDERED: PROPOFOL IV EMULSION 10 MG/ML 20 ML VIAL IV ONE ×4 (14:10→16:35)
[2020-07-01] MEDS ORDERED: ONDANSETRON INJ 2 MG/ML 2 ML VIAL ONE (14:10)
[2020-07-01] MEDS ORDERED: PHENYLEPHRINE HCL 10 MG/ML VIAL ONE ×2 (14:22→15:47)
[2020-07-01] MEDS ORDERED: HYDROmorphone INJ 2 MG/ML SYR/VIAL ONE (17:10)
--- NOTE | 2020-07-01 17:28 | Post Operative Brief Note ---
Immediate Post Op Note v1 Date of Surgery July 01, 2020 Pre & Post Diagnosis Operation Date: 07/01/20 13:00 Pre-Op Diagnosis: Infected Left Total Knee Arthroplasty Post-Op Diagnosis: Infected Left Total Knee Arthroplasty I identified the patient and participated in the time-out.: Yes Procedure Operation Date: 07/01/20 13:00 Actual Procedures p Left Total Knee Revision to Cement Spacer, Irrigation and Debridement(Left), synovectomy, placement antibiotic beads, superficial wound VAC- Antonino Kevin MD Surgeon Antonino Kevin MD Roving Weight Gauger Quentin WADE Estimated Blood Loss 50 Findings See Below Synovitis consistent with infection no loosening of any components but infection at interface between patella and bone as well as interface between posterior medial tibia and implant with bone erosion consistent with bone infection Specimens Swab cultures x2, synovium for evaluation, soft tissue tibial implant bone Interface for soft tissue culture, total knee explants Drains Hemovac Drain Anesthesia Type MAC Spinal Regional Complications none Disposition Accompanied Patient To Recovery: No Disposition: Recovery Room Overlapping Procedure I was immediately available: during the entire case.
--- NOTE | 2020-07-01 18:22 | XRay Report ---
XR knee LT 1 or 2V routine CLINICAL HISTORY: Surgical Post Op COMPARISON: Left knee radiographs October 08, 2019. FINDINGS: Skin pat are noted as well as surgical drains. Tibial component has been removed with placement of a cement spacer. There is been placement of antibiotic beads. Expected findings are note d. IMPRESSION: Interval placement of a cement spacer and antibiotic beads. ACT 112: Negative or not required by law. Electronically signed by: Luis Hawk M.D. 07/01/2020 6:21 PM
--- NOTE | 2020-07-01 18:25 | Anesthesiology Progress Note ---
Date of Service July 01, 2020 Anesthesia Post Procedure Vital Signs Vital Signs: Temp Pulse Pulse Resp BP Pulse Ox 07/01/20 18:15 77 15 109/71 97 07/01/20 18:05 36.2 C L 75 12 109/61 95 07/01/20 17:55 74 12 94/61 L 94 07/01/20 17:45 75 14 113/57 L 97 07/01/20 17:39 36.1 C L 74 15 114/63 99 07/01/20 12:04 37.3 C 89 18 137/87 96 Pain Intensity Left Knee: Pain Intensity: 3 Transfer of Care Handoff Completed per policy Notes Mental Status: alert / awake / arousable and participated in evaluation Patient Amnestic to Procedure: Yes Nausea / Vomiting: adequately controlled Pain: adequately controlled Airway Patency, RR, SpO2: stable & adequate BP & HR: stable & adequate Hydration State: stable & adequate Anesthetic Complications: no major complications apparent
[2020-07-01] MEDS: NovoLOG INSULIN PUMP SCH ×3 (18:30→23:50)
[2020-07-01] MEDS ORDERED: SODIUM CHLORIDE 0.9% 1000ML 1,000 ML IV SCH (18:46)
[2020-07-01] MEDS ORDERED: NALOXONE HCL 0.4 MG/1 ML VIAL/CARP IV PRN (18:46)
[2020-07-01] MEDS ORDERED: VANCOMYCIN CONSULT ACTIVE PRN (18:46)
[2020-07-01] MEDS ORDERED: MAGNESIUM HYDROXIDE SUSP 30 ML UDC PO PRN (18:46)
[2020-07-01] MEDS ORDERED: bisacodyL 10 MG SUPP PR PRN (18:46)
[2020-07-01] MEDS ORDERED: ALBUTEROL HFA 8 GM INHALER INH PRN (19:05)
[2020-07-01] MEDS ORDERED: PHARMACY GLYCEMIC MGMT CONSULT PRN (19:06)
--- NOTE | 2020-07-01 19:19 | Internal Medicine Consult Note ---
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 Kevin -Patient received preoperative cefazolin and also currently on Vancomycin. Hospitalist medicine consulted for post-operative management. -hospitalist ordering blood culture, ESR, CRP, and expand antibiotic coverage to include Zosyn besides the Vancomycin for now -wound vac management as per orthopedic service -prn pain medications with bowel regimen -titrate down supplementary oxygen as tolerated, encourage incentive spirometer -PT/OT evaluations (2) Diabetes mellitus, type 2: Type 2 diabetes mellitus with skilled nursing current use of insulin with diabetic neuropathy -patient uses sliding scale insulin at home and oral Jardiance 25 mg daily, there is active pharmacy glycemic consult for managing the diabetes with insulin Hypertension -continue home dose lisinopril 2.5 mg qhs (3) Diabetic neuropathy: -on oral gabapentin at home and topical lidocaine ointment for the feet -PT/OT consult Anxiety -continue home dose Klonopin and Wellbutrin DVT prophylaxis: has SCDs on Full Code Status [phone] History of Present Illness Reason for Consultation: "Postop Management" Requesting Physician: Dr. Kevin Attending Physician: Antonino Kevin MD History of Present Illness This is a 49 year old female with type 2 diabetes mellitus on insulin. She is under orthopedic service. She Infected Left Total Knee and is s/p Left Total Knee Revision to Cement Spacer, Irrigation and Debridement(Left), synovectomy, placement antibiotic beads, superficial wound VAC on 07/01/[address] Kevin. Patient received preoperative cefazolin and also currently on Vancomycin. Hospitalist medicine consulted for post-operative management. On review of systems, patient generally asymptomatic. Not in acute pain. Is still on supplementary nasal cannula oxyegn because of recent left leg procedure. no dyspnea. no chest pain. no abdominal pain. tolerates any left knee discomfort. no nausea. no vomiting. no dizziness. no headache Allergies Allergy/AdvReac Type Severity Reaction Status Date / Time latex Allergy Intermediate BLISTERS Verified 07/01/20 11:55 pregabalin [From Lyrica] Allergy Intermediate AGITATION Verified 07/01/20 11:55 ragweed pollen Allergy Mild CONGESTION Verified 07/01/20 11:55 oxycodone AdvReac Vomiting, Verified 07/01/20 11:55 headache, constipation Home Medications Home Medications Medication Instructions Recorded Confirmed Type Glucosamine Complex-MSM 2 cap PO QAM 09/03/19 07/01/20 History Jardiance 25 mg PO QAM 09/03/19 07/01/20 History albuterol sulfate 2 inh INHALATION Q6H PRN 09/03/19 07/01/20 History bupropion HCl [Wellbutrin SR] 150 mg PO BID 09/03/19 07/01/20 History cholecalciferol (vitamin D3) 1,000 unit PO QAM 09/03/19 07/01/20 History [Vitamin D3] clonazepam [Klonopin] 1 mg PO QPM 09/03/19 07/01/20 History gabapentin See Rx Instructions .ROUTE .COMPLEX 09/03/19 07/01/20 History insulin aspart U-100 [Novolog 1 sliding scale dose SUBCUT 09/03/19 07/01/20 History U-100 Insulin aspart] USEASDIRECTD lidocaine 1 applic TOPICAL BID 09/03/19 07/01/20 History lisinopril [Zestril] 2.5 mg PO QPM 09/03/19 07/01/20 History loratadine [Claritin Liqui-Gel] 10 mg PO QAM 09/03/19 07/01/20 History multivitamin 1 tab PO QAM 09/03/19 06/27/20 History turmeric root extract 500 mg PO QAM 09/03/19 06/27/20 History vitamin B complex 1 tab PO QAM 09/03/19 07/01/20 History vitamin E 100 unit PO QAM 09/03/19 06/27/20 History magnesium 250 mg PO BID 10/08/19 07/01/20 History celecoxib [Celebrex] 200 mg PO BID 30 Days #60 cap 10/10/19 07/01/20 Rx Patient History Medical History Asthma inhaler PRN Bilateral polycystic ovarian syndrome Diabetes mellitus, type 2 Diabetic neuropathy both feet and right ankle - numbness and burning Dry eye syndrome HTN (hypertension) Insulin pump in place Obesity Osteoarthritis Seasonal allergies Surgical History History of total knee replacement right and LEFT Hx of dilation and curettage Hx of laparoscopy Hx of sinus surgery Status post repair of complex wound Dog bite to face 2008, required sedation for suturing Family History Grandfather (Maternal) Family history of diabetes mellitus Mother Family history of diabetes mellitus Sister No problems noted. Other FHx: cancer FHx: colon cancer Social History Smoking Status: Never smoker Second Hand Exposure: No; Do You Dip or Chew Tobacco: No; Tobacco Cessation Education Requested by Patient: No Hx Alcohol Use: No Hx Substance Use: No Preferred Language: American Communication Ability: Effective Director Of Land Required: No Beliefs That Will Affect Care: None Current Living Situation: Significant Other Other Information That Helps Us Care for You: No Feels Safe at Home: Yes Safety Concerns: Feels Safe At This Time Assistive Devices: Walker Review of Systems Review of Systems: All systems reviewed & are unremarkable except as noted in Subjective Physical Exam Constitutional: comfortable Eyes: PERRL, conjunctivae normal, anicteric sclerae EOM intact bilaterally ENMT: external ear and nose normal, oropharynx normal Neck: trachea midline, no thyromegaly normal visual inspection Respiratory: normal respiratory effort, lungs clear to auscultation examined while on nasal cannula because of recent left knee surgery Cardiovascular: Rate/Rhythm: regular rate Gastrointestinal (Abdomen): normal bowel sounds, soft, nontender, no hepatosplenomegaly Musculoskeletal: Head/Neck/Chest: normocephalic Neurologic: PERRL, EOMI, accommodation nl, no face palsy, no dysarthria CN's II-XI intact bilaterally left knee has wound vac and ice park, right leg has SCD Psychiatric: A+Ox3, euthymic affect Results & Data ([facility]) Vital Signs (Past 12 Hours) Vital Signs Temp Pulse Pulse Resp BP Pulse Ox 07/01/20 19:03 36.5 C 70 16 99/63 L 99 07/01/20 18:46 36.6 C 70 16 99/76 L 99 07/01/20 18:15 77 15 109/71 97 07/01/20 18:05 36.2 C L 75 12 109/61 95 07/01/20 17:55 74 12 94/61 L 94 07/01/20 17:45 75 14 113/57 L 97 07/01/20 17:39 36.1 C L 74 15 114/63 99 07/01/20 12:04 37.3 C 89 18 137/87 96
[2020-07-01] MEDS ORDERED: INSULIN ASPART 100 UNITS/ML VIAL SC PRN (19:30)
[2020-07-01] MEDS ORDERED: INSULIN ASPART 100 UNITS/ML 3 ML PEN SC SCH (19:30)
[2020-07-01] MEDS ORDERED: PIPERACILL/TAZOBAC CONSULT ACTIVE PRN (19:35)
[2020-07-01 20:01] LABS: C Reactive Protein 8.47 mg/dl (0-0.29); Creatinine Clr Calc Pharmacy 95.2 ml/min; Est GFR (African American) 97.5; Est GFR (Non-African American) 84.1
[2020-07-01] MEDS ORDERED: PIPERACILLIN/TAZOBACTAM 3.375 GM in DEXTROSE 5% 100 ML IV ONE (20:15)
[2020-07-01] MEDS: ONDANSETRON INJ 2 MG/ML 2 ML VIAL IV PRN (20:25)
--- NOTE | 2020-07-01 20:39 | Pharmacy Report ---
Pharmacy Abx Dose Short Note - Date of Service July 01, 2020 - Assessment & Plan Assessment 49 year old F receiving vancomycin/Zosyn for treatment of L knee infection s/p replacement with antibiotic beads Day # 1 of antimicrobial therapy. Plan Vancomycin Patient meets criteria for vancomycin AUC dosing nomogram AUC/BILL is the preferred PK/PD target for vancomycin * Target AUC/BILL = 400-600 * AUC guided dosing is effective and associated with decreased risk of nephrotoxicity Zosyn * 3.375 gm IV x 1 then 3.375 gm IV q8 hours (empiric indication) Pharmacy will continue to follow and will adjust dose/frequency as necessary. Thank you.
[2020-07-01] MEDS: HYDROCODONE/ACETAMOPHEN 5/325MG TAB PO PRN (20:53)
[2020-07-01] MEDS: clonazePAM 1 MG TAB PO SCH (20:57)
[2020-07-01] MEDS ORDERED: GLUCAGON FOR INJ 1 MG VIAL IM PRN (21:00)
[2020-07-01] MEDS ORDERED: GLUCOSE 40% GEL 15 GM TUBE PO PRN (21:00)
[2020-07-01] MEDS ORDERED: GABAPENTIN 600 MG TAB PO SCH (21:00)
[2020-07-01] MEDS ORDERED: GABAPENTIN 100 MG CAP PO SCH (21:00)
[2020-07-01] MEDS ORDERED: CARBOHYDRATES FOR HYPOGLYCEMIA PO PRN (21:00)
[2020-07-01] MEDS ORDERED: DEXTROSE 50% 50 ML SYRINGE IV PRN (21:00)
[2020-07-01] MEDS ORDERED: GLUCOSE 10 TABS/TUBE PO PRN (21:00)
[2020-07-01] MEDS: buPROPion SR 150 MG TABCR PO SCH (21:02)
[2020-07-01] MEDS: lisinopril 2.5 MG TAB PO SCH (21:02)
[2020-07-01] MEDS: DOCUSATE SODIUM 100 MG CAP PO SCH (21:03)
[2020-07-01] MEDS: MAGNESIUM OXIDE 400 MG TAB PO SCH (21:03)
[2020-07-01] MEDS: SENNA 8.6 MG TAB PO SCH (21:04)
[2020-07-01] MEDS: LIDOCAINE HCL 5% OINT 30 GM TUBE TOP SCH (21:05)
[2020-07-01] MEDS: VANCOMYCIN HCL 1,250 MG in SODIUM CHLORIDE 0.9% 250 ML IV SCH (21:32)
[2020-07-01] MEDS: HYDROmorphone INJ 0.5 MG/0.5 ML SYR IV PRN (22:15)
[2020-07-02] MEDS ORDERED: INSULIN ASPART 100 UNITS/ML 3 ML PEN SC SCH
[2020-07-02] MEDS ORDERED: PIPERACILLIN/TAZOBACTAM 3.375 GM in DEXTROSE 5% 100 ML IV SCH (02:00)
--- NOTE | 2020-07-02 02:16 | Operative Report (OR) ---
DATE OF OPERATION: 07/01/2020 INDICATION FOR PROCEDURE: The patient is a 49-year-old female who I did bilateral staged knee replacements on. She had a Ponce and Nephew type knee replacement. This was in September of this year. She had some low-grade chronic synovitis after the procedure, went ahead and had her right knee replaced, but continued to have swelling in the left knee as the right knee improved significantly after her most recent surgery. Left knee aspirate demonstrated alpha defensin positive finding with positive staph antigen with culture positive for Staph lugdunensis. Radiographs most recently demonstrated some osteolytic changes under the posterior medial tibial plateau and some subtle cystic changes adjacent to the patella consistent with infection, but no evidence of any loosening of the components. PREOPERATIVE DIAGNOSIS: Left knee septic, total knee replacement. POSTOPERATIVE DIAGNOSIS: Left knee septic, total knee replacement. PROCEDURE: Revision of a left total knee arthroplasty to an articulated cement spacer including electrocautery synovectomy, incision and drainage, irrigation and debridement with placement of antibiotic beads and superficial wound VAC. SURGEON: Antonino Kevin MD INSPECTOR WATER POLLUTION CONTROL: SHERI Arellano ANESTHESIA: Spinal and sedation. OPERATIVE PROCEDURE: The patient was taken to the operating room. After spinal anesthetic placed, placed supine on the operating room table. Pneumatic tourniquet was placed on left upper thigh and her left lower extremity was prepped and draped in sterile fashion. Exam demonstrated she had moderately large effusion, no erythema, no drainage, no sinus tracts, benign healed incision, and good range of motion of the knee. The patient did have some preoperative antibiotics, Ancef and vancomycin, and after the leg was sterilely prepped and draped, the leg was elevated and the pneumatic tourniquet was raised to 300 mmHg. An anterior incision was made across the left knee through the old scar. Subcutaneous tissues were edematous, but no pus in subcutaneous tissues. Subcutaneous flaps were elevated medially and laterally. An incision was made in the medial retinaculum, extended up in the mid third of the quadriceps tendon, and extended down to the medial tibial tubercle. The joint fluid was cloudy. Cultures were obtained. There was a lot of synovitis with large fronds of inflamed synovial tissue consistent with infection. The fluid was evacuated from the knee joint. The electrocautery synovectomy was performed removing the thick inflamed synovial tissue in the medial gutter, suprapatellar pouch, and lateral gutter and around the patella. None of the components were loose. Attention was first taken to the femur component. Because it was well fixed, we had to use the Biomet Ultra-Drive to melt the cement. We used thin and wide type blades to work around the femoral component from medial and lateral sides and use some thin osteotomes followed by a bone tamp and the femur was able to be removed with minimal bone loss at all from the femur. Then the tibia was addressed. This was more well fixed and hard to remove due to the cemented stem. There was clearly no loosening of the tibia. Similar use of the Ultra-Drive and stacked osteotomes and a Hali extractor aided in removal of the tibial component. There was an area of bone erosion about 1.5 cm in diameter consistent with chronic infection with some brown soft tissue within the cystic lesion in the bone and this tissue was curetted out and sent to pathology for culture. The patella was removed with the Ultra-Drive and some osteotomes and under the patella there were similar cystic bone changes consistent with some chronic infection under the patellar component as well. At this time, the knee was then copiously irrigated with antibiotic solution with bacitracin. The knee was irrigated with 6 liters at this time. Then attention was carefully taken starting with the femur to remove any cement within the femoral surface and all cement was removed from the femoral side. Then attention was taken to the tibial side and the cement had to be removed using cement removal instruments requiring splitting the cement and removing the cement piecemeal until all cement was removed from the tibial side and a saw was used on the surface to remove any of the superficial cement still on the superior surface of the tibia. Then attention was taken to the patella. We had to use an angled curette, a small curette, to remove the cement from within the drill plugs within the patella. We also used a small drill hole to drill out the plugs to aid in cement removal. All the cystic areas were curetted out in both the patella and the tibia side. Then the knee was again copiously irrigated with antibiotic solution. We removed any inflamed synovium from the posterior joint, which was more accessible at this time. The tourniquet time was 114 minutes at this time, so we decided to let the tourniquet down. So we packed the knee with sponges and allowed the leg to revascularize for 16 minutes prior to elevating the leg and placing the tourniquet back up. Further irrigation of the knee with antibiotic solution irrigating more to a total of 10 liters. The knee surfaces were all dried. Then we created an articulated cement spacer. We used a left 62.5 Vanguard posterior stabilized tibia and the 12 x 71/75 posterior stabilized polyethylene along with a 28 x 8 patella with the plastic pegs removed as the components and we used Palacos G cement with 2 grams of vancomycin per 40 mL of material with 3 packs of cement mixed. This was vacuum mixed and then we allowed the cement to become doughy and then cemented on the femur first, cleared the excess cement from that. Then used retractors to expose the tibia and then created a tibial cement spacer by cementing the polyethylene into the thickened cement spacer and allowed the cement to come up along the sides of the implant. We had to hold the knee in full extension with traction on the leg to try to get appropriate tension while the cement cured. We did cement the patella on with a patellar clamp. The cement was allowed to fully cure. Then I used the Betadine soak for 3 minutes and I irrigated this out with a further liter of the antibiotic solution with bacitracin. Then we placed Stimulan beads with vancomycin into the knee joint and then placed 2 Hemovac drains out laterally and then closed the quadriceps tendon and medial retinaculum with interrupted #1 Vicryl bacterial resistant type suture material. We checked the stability. There was just a mild amount of hyperextension by 5 degrees and mid flexion there was some laxity of the MCL, but on flexion of the knee there was good stability with gentle varus valgus stress and range of motion of the spacer was 0-100 degrees and the repair was secure through the full range of motion of 0-100 degrees. Some more antibiotic beads were placed into the suprapatellar subcutaneous tissues, fascia interval, and then the subcutaneous tissues were closed with interrupted 2-0 bacterial resistant Vicryl type suture. Skin was closed with pat and a superficial wound VAC was applied. The specimens were cultures x2 swabs, the soft tissue culture tibial implant bone interface, and synovial soft tissue and explanted material. The drains, two Hemovac. The complications were none. The blood loss was estimated at 50 mL and the patient tolerated the procedure well. My physician assistant designer Quentin Youngblood assisted me throughout the entire procedure. He assisted in soft tissue retraction, leg positioning, assisted in multiple parts as microbiology lab assistant throughout the procedure. He assisted in subcutaneous wound closure, which he performed along with the skin closure and application of superficial wound VAC and will participate in the postoperative care of the patient. I attest to the content of the Intraoperative Record and any orders documented therein. Any exception s are noted below.
[2020-07-02] MEDS: HYDROCODONE/ACETAMOPHEN 5/325MG TAB PO PRN ×4 (03:02→18:35)
[2020-07-02] MEDS: VANCOMYCIN HCL 1,250 MG in SODIUM CHLORIDE 0.9% 250 ML IV SCH ×3 (04:11→20:03)
[2020-07-02] MEDS: NovoLOG INSULIN PUMP SCH ×5 (04:19→22:33)
[2020-07-02 07:01] LABS: Hemoglobin 9.8 g/dL (12.0-16.0); Mean Corpuscular Hemoglobin 22.3 pg (25-34); Mean Corpuscular Hgb Conc 29.7 g/dL (32-36); Mean Platelet Volume 8.7 fL (7.4-10.4); Platelet Count 409 K/uL (130-400); RDW Coefficient of Variation 16.7 % (11.5-14.5); RDW Standard Deviation 46.3 fL (36.4-46.3); White Blood Count 5.94 K/uL (4.8-10.8)
[2020-07-02 07:32] LABS: BUN Creatinine Ratio 10.8 (10-20); Calcium 9.1 mg/dl (8.5-10.1); Creatinine Clr Calc Pharmacy 86.7 ml/min; Potassium 3.9 mmol/L (3.5-5.1)
[2020-07-02] MEDS: LIDOCAINE HCL 5% OINT 30 GM TUBE TOP SCH ×2 (07:37→21:42)
--- NOTE | 2020-07-02 08:27 | Orthopedic Progress Note ---
Date of Service July 02, 2020 Assessment & Plan (1) Infection of total left knee replacement: Postop day 1 status post explant infected left TKA with implantation of temporary articulating spacer. PT OT protocols. Weightbearing as tolerated with immobilizer on for ambulation. May remove for gentle range of motion 0 to 90 degrees. Hinged knee brace to be placed before discharge with 0 to 90 degrees range of motion. Orthotics consult placed. DVT prophylaxis-aspirin p.o. twice daily, SCDs, MEMO hose Pain management as written. Continue current IV antibiotics/vancomycin. Cultures pending. Culture obtained prior to admission was showing coag negative staph not lugdunensis. MSSA per Plan for ID consult; plan for PICC line insertion for long-term antibiotics. Admission and Anticipated Discharge Date Admission Date: July 01, 2020 Subjective Postop day 1 Patient sitting up in bed awake and alert. No complaints this morning other than some mild burning discomfort on the top of the knee. Otherwise pain controlled. Denies shortness of breath, chest pain, lightheadedness. Patient had multiple questions about her surgery and about future antibiotic use etc. All questions answered to the best of my ability. Discussed that Dr. Blandon would be up today to see her and have further discussion. Physical Exam Physical Exam: Dressings are clean, dry, and intact. Calves are soft nontender. Neurovascular is intact. Toes are mobile. He has good dorsiflexion and plantarflexion of the left foot. Hemovac drainage was 150 mL in the previous shift. Patient wearing immobilizer which was removed for exam and then put back on. Results & Data ([facility]) Vital Signs (Past 12 Hours) Vital Signs Temp Pulse Pulse Resp BP Pulse Ox 07/02/20 07:26 36.8 C 80 16 109/67 97 07/02/20 02:53 37.2 C 76 16 113/63 95 07/01/20 22:59 36.5 C 71 16 99/64 L 99 07/01/20 21:35 36.5 C 07/01/20 21:21 35.9 C L 75 18 98/61 L 98 07/01/20 20:32 70 16 114/71 100 Laboratory Results Laboratory Results WBC 5.94 K/uL (4.8-10.8) 07/02/20 06:47 RBC 4.40 M/uL (4.2-5.4) 07/02/20 06:47 Hgb 9.8 g/dL (12.0-16.0) L 07/02/20 06:47 Hct 33.0 % (37-47) L 07/02/20 06:47 MCV 75.0 fL (80-100) L 07/02/20 06:47 MCH 22.3 pg (25-34) L 07/02/20 06:47 MCHC 29.7 g/dL (32-36) L 07/02/20 06:47 RDW Std Deviation 46.3 fL (36.4-46.3) 07/02/20 06:47 RDW Coeff of Gareth 16.7 % (11.5-14.5) H 07/02/20 06:47 Plt Count 409 K/uL (130-400) H 07/02/20 06:47 MPV 8.7 fL (7.4-10.4) 07/02/20 06:47 Immature Gran % (Auto) 0.1 % 07/01/20 11:25 Neut % (Auto) 62.5 % 07/01/20 11:25 Lymph % (Auto) 29.5 % 07/01/20 11:25 Bracken % (Auto) 7.2 % 07/01/20 11:25 Eos % (Auto) 0.5 % 07/01/20 11:25 Baso % (Auto) 0.2 % 07/01/20 11:25 Neut # (Auto) 5.86 K/uL (1.4-6.5) 07/01/20 11:25 Lymph # (Auto) 2.76 K/uL (1.2-3.4) 07/01/20 11:25 Bracken # (Auto) 0.67 K/uL (0.11-0.59) H 07/01/20 11:25 Eos # (Auto) 0.05 K/uL (0-0.5) 07/01/20 11:25 Baso # (Auto) 0.02 K/uL (0-0.2) 07/01/20 11:25 Immature Gran # (Auto) 0.01 K/uL (0.00-0.02) 07/01/20 11:25 Anisocytosis Present 07/01/20 11:25 ESR 63 mm/hr (0-21) H 07/01/20 19:59 PT 11.5 Seconds (9.0-12.0) 07/01/20 11:25 INR 1.1 (0.9-1.1) 07/01/20 11:25 APTT 31.6 Seconds (21.0-31.0) H 07/01/20 11:25 PTT Ratio 1.1 07/01/20 11:25 Sodium 138 mmol/L (136-145) 07/02/20 06:47 Potassium 3.9 mmol/L (3.5-5.1) 07/02/20 06:47 Chloride 106 mmol/L (98-107) 07/02/20 06:47 Carbon Dioxide 25 mmol/L (21-32) 07/02/20 06:47 Anion Gap 6.0 (3-11) 07/02/20 06:47 BUN 10 mg/dl (7-18) 07/02/20 06:47 Creatinine 0.89 mg/dl (0.6-1.2) 07/02/20 06:47 Est Cr Clr Drug Dosing 86.7 ml/min 07/02/20 06:47 Est GFR ( Amer) 87.0 07/02/20 06:47 Est GFR (Non-Af Amer) 75.0 07/02/20 06:47 BUN/Creatinine Ratio 10.8 (10-20) 07/02/20 06:47 Glucose 94 mg/dl (70-99) 07/02/20 06:47 POC Glucose 81 mg/dl (70-99) 07/02/20 08:21 Calcium 9.1 mg/dl (8.5-10.1) 07/02/20 06:47 C-Reactive Protein 8.47 mg/dl (0-0.29) H 07/01/20 19:26 POC Ur Test NEG (NEG) 07/01/20 11:15 Blood Type O Positive 07/01/20 11:25 Antibody Screen NEGATIVE 07/01/20 11:25
[2020-07-02] MEDS: FERROUS GLUCONATE 324 MG TAB PO SCH ×2 (08:32→17:17)
[2020-07-02] MEDS: LORATADINE 10 MG TAB PO SCH (08:32)
[2020-07-02] MEDS: DOCUSATE SODIUM 100 MG CAP PO SCH ×2 (08:32→21:40)
[2020-07-02] MEDS: MULTIVITAMIN TAB PO SCH (08:32)
[2020-07-02] MEDS: MAGNESIUM OXIDE 400 MG TAB PO SCH ×2 (08:32→21:41)
[2020-07-02] MEDS: buPROPion SR 150 MG TABCR PO SCH ×2 (08:33→21:40)
[2020-07-02] MEDS: GABAPENTIN 300 MG CAP PO SCH ×3 (08:34→23:35)
[2020-07-02] MEDS ORDERED: INSULIN GLARGINE SOLOSTAR 100 UNITS/ML 3 ML PEN SC SCH (09:00)
[2020-07-02] MEDS ORDERED: INFLUENZA VIRUS QUAD VACCINE 0.5 ML SYR IM ONE (09:00)
[2020-07-02] MEDS ORDERED: INFLUENZA ADMINISTRATION CHARGE ONE (09:00)
[2020-07-02] MEDS ORDERED: NON-FORMULARY MEDICATION (Empagliflozin [Jardiance] 25 MG) PO SCH (09:00)
[2020-07-02] MEDS: PIPERACILLIN/TAZOBACTAM 3.375 GM in DEXTROSE 5% 100 ML IV SCH ×2 (09:58→17:16)
[2020-07-02] MEDS: ASPIRIN 81 MG ECTAB PO SCH ×2 (11:08→21:40)
[2020-07-02] MEDS: HYDROmorphone INJ 0.5 MG/0.5 ML SYR IV PRN ×3 (11:11→21:39)
--- NOTE | 2020-07-02 11:11 | Hospitalist Progress Note ---
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 Kevin -Patient received preoperative cefazolin and also currently on Vancomycin. Hospitalist medicine consulted for post-operative management on 07/01/2020. hospitalist ordered blood culture and labs for inflammatory markers and expanded antibiotic coverage to include Zosyn besides the Vancomycin for now -review of 07/01/2020 left knee stains of no organisms and orthopedics comment on 07/02/2020 that outside culture smith sensitive staph lugdenensis -no current leukocytosis -discussed with orthopedic whether any role in continuing Vancomycin as right now there does not appear to be strong evidence of MRSA, can continue Zosyn for now, orthopedics is now consulting [facility] Infectious Disease consult -wound care management as per orthopedic service -prn pain medications with bowel regimen -on room air, encourage incentive spirometer -PT/OT evaluations (2) Diabetes mellitus, type 2: Type 2 diabetes mellitus with fdc current use of insulin with diabetic neuropathy -patient uses sliding scale insulin at home and oral Jardiance 25 mg daily, there is active pharmacy glycemic consult for managing the diabetes with insulin -the hypoglycemia from 07/01/2020 evening has resolved, continue the pharmacy glycemic consult management Hypertension -continue home dose lisinopril 2.5 mg qhs (3) Diabetic neuropathy: -on oral gabapentin at home and topical lidocaine ointment for the feet -PT/OT consult Anxiety -continue home dose Klonopin and Wellbutrin DVT prophylaxis: has SCDs, has aspirin for DVT prophylaxis as per orthopedics hospitalist medicine will continue to follow Full Code Status [phone] Admission and Anticipated Discharge Date Admission Date: July 01, 2020 Subjective Patient laying in the bed. breathing on room air. no chest pain. no abdomen pain. no vomiting. she reports more pain of left knee today and requires more pain medications Review of Systems Review of Systems: All systems reviewed & are unremarkable except as noted in Subjective Physical Exam Constitutional: comfortable Eyes: PERRL, conjunctivae normal, anicteric sclerae EOM intact bilaterally ENMT: external ear and nose normal, oropharynx normal Neck: trachea midline, no thyromegaly normal visual inspection Respiratory: normal respiratory effort, lungs clear to auscultation Cardiovascular: Rate/Rhythm: regular rate Gastrointestinal (Abdomen): normal bowel sounds, soft, nontender, no hepatospl enomegaly Musculoskeletal: Head/Neck/Chest: normocephalic left knee in dressing Neurologic: PERRL, EOMI, accommodation nl, no face palsy, no dysarthria CN's II-XI intact bilaterally Psychiatric: A+Ox3, euthymic affect Results & Data Results & Data ([facility]) Vital Signs (Past 12 Hours) Vital Signs Temp Pulse Pulse Resp BP Pulse Ox 07/02/20 07:26 36.8 C 80 16 109/67 97 07/02/20 02:53 37.2 C 76 16 113/63 95
--- NOTE | 2020-07-02 11:12 | Pharmacy Report ---
Pharmacy Glycemic Short Note 2 - Date of Service July 02, 2020 - Glycemic Short BSG Results (Last 24 hours): 07/01/20 07/01/20 07/01/20 11:42 14:33 16:46 Glucose POC Glucose 153 H 144 H 129 H 07/01/20 07/01/20 07/01/20 17:42 18:36 20:29 Glucose POC Glucose 120 H 99 68 L* 07/01/20 07/01/20 07/01/20 20:46 21:08 23:47 Glucose POC Glucose 66 L* 86 130 H 07/02/20 07/02/20 07/02/20 04:05 06:47 08:21 Glucose 94 POC Glucose 133 H 81 OUTPATIENT ANTIDIABETIC REGIMEN: * Novolog insulin pump * Basal rate 1.3 units/hr (9264-6827), 1.5 units/hr (5554-3705) * Correction factor: 30 mg/dL/unit * Carb ratio: 1 unit per 4 grams CHO * BSG range: 130-160 mg/dL * Jardiance 25 mg PO qAM * HbA1c: 8.1% (06/27/20) ASSESSMENT: * SN is a 49 year old female POD #1 s/p left total knee revision secondary to infection of left knee * No intraoperative steroids * Currently receiving IV vancomycin and Zosyn for treatment of infection * Patient has been managing her BSGs per her insulin pump - trended low yesterday evening (66 mg/dL at 2100 check) * Of note, patient was nauseated last evening following surgery and had limited appetite, which may explain this low * She is confident continuing to manage her therapy while inpatient (can set temporary basal rates if needed) * primary special educator met with patient this morning - pump settings were obtained and relayed to pharmacy. PLAN FOR INPATIENT GLYCEMIC CONTROL: * Hold outpatient oral diabetes medications * Pt is to manage BSGs with insulin pump per outpatient settings. * RN will have patient read and sign agreement CF [id number] Insulin Pump Therapy Patient Agreement. * RN will provide and explain form NS-824 Flowsheet for Patient * Patient will document their insulin dose given on NS-824 which is kept at the bedside, available to caregivers upon request, and which becomes part of the permanent medical record. * If at any time the patients condition evidences that he/she is not able to manage the insulin pump (i.e. frequent hypo/hyperglycemia) Pharmacy will assume glycemic control by discontinuing the pump & managing with SQ basal bolus insulin regimen for the interim.
[2020-07-02] MEDS ORDERED: GABAPENTIN 100 MG CAP PO SCH (16:30)
[2020-07-02] MEDS ORDERED: Nursing to Pharmacy Communication SCH (18:45)
[2020-07-02] MEDS: GABAPENTIN 600 MG TAB PO SCH (19:59)
[2020-07-02] MEDS: clonazePAM 1 MG TAB PO SCH (21:38)
[2020-07-02] MEDS: SENNA 8.6 MG TAB PO SCH (21:41)
[2020-07-02] MEDS: lisinopril 2.5 MG TAB PO SCH (21:41)
[2020-07-03] MEDS: HYDROCODONE/ACETAMOPHEN 5/325MG TAB PO PRN ×6 (00:01→21:27)
[2020-07-03] MEDS: NovoLOG INSULIN PUMP SCH ×6 (00:05→21:51)
[2020-07-03] MEDS: PIPERACILLIN/TAZOBACTAM 3.375 GM in DEXTROSE 5% 100 ML IV SCH (02:21)
[2020-07-03 03:19] LABS: Basophils # (auto) 0.01 K/uL (0-0.2); Basophils % (auto) 0.2 %; Eosinophils # (auto) 0.27 K/uL (0-0.5); Eosinophils % (auto) 4.7 %; Hematocrit (blood only) 29.8 % (37-47); Hemoglobin 9.1 g/dL (12.0-16.0); Immature Granulocytes # (auto) 0.01 K/uL (0.00-0.02); Immature Granulocytes % (auto) 0.2 %; Lymphocytes # (auto) 1.76 K/uL (1.2-3.4); Lymphocytes % (auto) 30.7 %; Mean Corpuscular Hemoglobin 22.5 pg (25-34); Mean Corpuscular Hgb Conc 30.5 g/dL (32-36); Mean Corpuscular Volume 73.6 fL (80-100); Mean Platelet Volume 8.2 fL (7.4-10.4); Monocytes # (auto) 0.47 K/uL (0.11-0.59); Monocytes % (auto) 8.2 %; Neutrophils # (auto) 3.21 K/uL (1.4-6.5); Platelet Count 333 K/uL (130-400); RDW Coefficient of Variation 16.6 % (11.5-14.5); RDW Standard Deviation 45.1 fL (36.4-46.3); Red Blood Count 4.05 M/uL (4.2-5.4); White Blood Count 5.73 K/uL (4.8-10.8)
[2020-07-03] MEDS ORDERED: VANCOMYCIN TROUGH ONE (03:30)
[2020-07-03 03:39] LABS: BUN Creatinine Ratio 9.4 (10-20); Calcium 8.6 mg/dl (8.5-10.1); Creatinine Clr Calc Pharmacy 85.7 ml/min; Est GFR (African American) 85.8; Potassium 3.8 mmol/L (3.5-5.1)
[2020-07-03 03:45] LABS: Hypochromasia Present; Ovalocytes 1+
[2020-07-03] MEDS: VANCOMYCIN HCL 1,250 MG in SODIUM CHLORIDE 0.9% 250 ML IV SCH (03:48)
--- NOTE | 2020-07-03 08:08 | Hospitalist Progress Note ---
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 Kevin -Patient received preoperative cefazolin and also currently on Vancomycin. Hospitalist medicine consulted for post-operative management on 07/01/2020. hospitalist ordered blood culture and labs for inflammatory markers and expanded antibiotic coverage to include Zosyn besides the Vancomycin for now -review of 07/01/2020 left knee stains of no organisms and orthopedics comment on 07/02/2020 that outside culture smith sensitive staph lugdenensis -no current leukocytosis -discussed with orthopedic whether any role in continuing Vancomycin as right now there does not appear to be strong evidence of MRSA, orthopedics continuing Zosyn and Vancomycin for now and had requested consult from [facility] Infectious Disease consult hospitalist [facility]icine consult 07/02/2020 - Please, provide official culture report for the Staph lugdunensis assuming it is from L knee synovial fluid - If the organism is truly susceptible to oxacillin, may stop zosyn and vancomycin and start cefazolin 2 gm Iv [id number] for total 6 weeks from 07/01/20 - patient will need weekly CBC w/ diff and BMP and biweekly CRP while on cefazolin - patient may follow up w/ ID outpatient clinic w/in 3-5 weeks Follow up: in 4 week(s) Pepe Luevano MD Infectious Disease, [address] [address] -wound care management as per orthopedic service -prn pain medications with bowel regimen -on room air, encourage incentive spirometer -PT/OT evaluations (2) Diabetes mellitus, type 2: Type 2 diabetes mellitus with watermaster current use of insulin with diabetic neuropathy -patient uses sliding scale insulin at home and oral Jardiance 25 mg daily, there is active pharmacy glycemic consult for managing the diabetes with insulin -the hypoglycemia from 07/01/2020 evening has resolved, continue the pharmacy glycemic consult management Hypertension -continue home dose lisinopril 2.5 mg qhs (3) Diabetic neuropathy: -on oral gabapentin at home and topical lidocaine ointment for the feet -PT/OT consult Anxiety -continue home dose Klonopin and Wellbutrin DVT prophylaxis: has aspirin for DVT prophylaxis as per orthopedics hospitalist medicine will continue to follow Full Code Status Arya [phone] Admission and Anticipated Discharge Date Admission Date: July 02, 2020 Subjective No fevers overnight, patient not in acute distress. She discussed pain medication and pain tolerances of left knee with hospitalist physician and physician assistant clinical nurse manager from orthopedics. Patient denies chest pain or shortness of breath. no abdomen pain. no vomiting. she discussed also her glucose management while in hospital Review of Systems Review of Systems: All systems reviewed & are unremarkable except as noted in Subjective Physical Exam Constitutional: comfortable Eyes: PERRL, conjunctivae normal, anicteric sclerae EOM intact bilaterally ENMT: external ear and nose normal, oropharynx normal Neck: trachea midline, no thyromegaly normal visual inspection Respiratory: normal respiratory effort, lungs clear to auscultation Cardiovascular: Rate/Rhythm: regular rate Gastrointestinal (Abdomen): normal bowel sounds, soft, nontender, no hepatosplenomegaly Musculoskeletal: Head/Neck/Chest: normocephalic left leg in brace Neurologic: PERRL, EOMI, accommodation nl, no face palsy, no dysarthria CN's II-XI intact bilaterally Psychiatric: A+Ox3, euthymic affect Results & Data Results & Data ([facility]) Vital Signs (Past 12 Hours) Vital Signs Temp Pulse Resp BP Pulse Ox 07/02/20 23:00 37.5 C 83 18 104/62 95 07/02/20 20:10 37.4 C 92 H 17 122/69 93
[2020-07-03] MEDS: MAGNESIUM OXIDE 400 MG TAB PO SCH ×2 (08:37→21:28)
[2020-07-03] MEDS: buPROPion SR 150 MG TABCR PO SCH ×2 (08:37→21:29)
[2020-07-03] MEDS: DOCUSATE SODIUM 100 MG CAP PO SCH ×2 (08:37→21:28)
[2020-07-03] MEDS: ASPIRIN 81 MG ECTAB PO SCH ×2 (08:37→21:29)
[2020-07-03] MEDS: FERROUS GLUCONATE 324 MG TAB PO SCH ×2 (08:38→17:15)
[2020-07-03] MEDS: MULTIVITAMIN TAB PO SCH (08:38)
[2020-07-03] MEDS: LORATADINE 10 MG TAB PO SCH (08:38)
[2020-07-03] MEDS: LIDOCAINE HCL 5% OINT 30 GM TUBE TOP SCH ×2 (08:39→21:29)
--- NOTE | 2020-07-03 09:34 | Orthopedic Progress Note ---
Date of Service July 03, 2020 Assessment & Plan (1) Infection of total left knee replacement: Postop day 2 status post explant infected left TKA with implantation of temporary articulating spacer. PT OT protocols. Weightbearing as tolerated with immobilizer on for ambulation. May remove for gentle range of motion 0 to 90 degrees. Hinged knee brace to be placed before discharge with 0 to 90 degrees range of motion. Orthotics consult placed. DVT prophylaxis-aspirin p.o. twice daily, SCDs, MMEO wilson Pain management as written. Intra op cultures still pending, out side source confirmed Staph Lugdunensis. ID input appreciated and recommend cefazolin 2 GM IV q8h for 6 weeks. D/C vanco and zosyn. Plan for PICC line insertion for long-term antibiotics. Admission and Anticipated Discharge Date Admission Date: July 02, 2020 Subjective POD #2, Feeling well. Denies OB, CP, N/V, Dizziness. Pain controlled well. Afebrile. Physical Exam Physical Exam: Left knee wound vac c/d/i, no drainage. Toes/ ankle mobile. No calf tenderness. A&Ox3. Afebrile. Results & Data ([facility]) Vital Signs (Past 12 Hours) Vital Signs Temp Pulse Pulse Resp BP Pulse Ox 07/03/20 08:11 36.8 C 77 18 97/62 L 99 07/02/20 23:00 37.5 C 83 18 104/62 95
[2020-07-03] MEDS: GABAPENTIN 300 MG CAP PO SCH ×2 (09:50→21:29)
[2020-07-03] MEDS ORDERED: ceFAZolin 2,000 MG in SYRINGE 0 ML IV SCH (10:00)
--- NOTE | 2020-07-03 12:18 | Pharmacy Report ---
Pharmacy Glycemic Short Note 2 - Date of Service July 03, 2020 - Glycemic Short BSG Results (Last 24 hours): 07/02/20 07/02/20 07/02/20 17:05 21:00 23:48 Glucose POC Glucose 122 H 138 H 163 H 07/03/20 07/03/20 07/03/20 03:09 03:46 08:17 Glucose 130 H POC Glucose 140 H 99 07/03/20 12:07 Glucose POC Glucose 122 H OUTPATIENT ANTIDIABETIC REGIMEN: * Novolog insulin pump * Basal rate 1.3 units/hr (5748-2763), 1.5 units/hr (6993-0400) * Correction factor: 30 mg/dL/unit * Carb ratio: 1 unit per 4 grams CHO * BSG range: 130-160 mg/dL * Jardiance 25 mg PO qAM * HbA1c: 8.1% (06/27/20) ASSESSMENT: 07/03/20: * POD # 2 s/p left total knee revision * BSG values have improved over the past 12 or so hours likely due to improved oral intake * No changes required at this time 07/02/20: * SN is a 49 year old female POD #1 s/p left total knee revision secondary to infection of left knee * No intraoperative steroids * Currently receiving IV vancomycin and Zosyn for treatment of infection * Patient has been managing her BSGs per her insulin pump - trended low yesterday evening (66 mg/dL at 2100 check) * Of note, patient was nauseated last evening following surgery and had li mited appetite, which may explain this low * She is confident continuing to manage her therapy while inpatient (can set temporary basal rates if needed) * prosthodontist/educator met with patient this morning - pump settings were obtained and relayed to pharmacy. PLAN FOR INPATIENT GLYCEMIC CONTROL: * Hold outpatient oral diabetes medications * Patient will continue to manage BSGs with insulin pump per outpatient settings. * RN will have patient read and sign agreement CF [id number] Insulin Pump Therapy Patient Agreement. * RN will provide and explain form NS-824 Flowsheet for Patient * Patient will document their insulin dose given on NS-824 which is kept at the bedside, available to caregivers upon request, and which becomes part of the permanent medical record. * If at any time the patients condition evidences that he/she is not able to manage the insulin pump (i.e. frequent hypo/hyperglycemia) Pharmacy will assume glycemic control by discontinuing the pump & managing with SQ basal bolus insulin regimen for the interim. DISCHARGE RECOMMENDATIONS * Continue insulin pump on discharge * Notify MTM clinic for dose adjustment with BG values persistently above/below target
[2020-07-03] MEDS ORDERED: VANCOMYCIN HCL 1,250 MG in SODIUM CHLORIDE 0.9% 250 ML IV SCH (16:00)
[2020-07-03] MEDS: ceFAZolin 2,000 MG in SYRINGE 0 ML IV SCH (17:14)
[2020-07-03] MEDS: GABAPENTIN 600 MG TAB PO SCH (17:15)
[2020-07-03] MEDS: HYDROmorphone INJ 0.5 MG/0.5 ML SYR IV PRN (18:53)
[2020-07-03] MEDS: SENNA 8.6 MG TAB PO SCH (21:28)
[2020-07-03] MEDS: clonazePAM 1 MG TAB PO SCH (21:28)
[2020-07-03] MEDS: lisinopril 2.5 MG TAB PO SCH (21:29)
[2020-07-04] MEDS: ceFAZolin 2,000 MG in SYRINGE 0 ML IV SCH ×4 (00:09→21:03)
[2020-07-04] MEDS: NovoLOG INSULIN PUMP SCH ×7 (00:25→21:04)
[2020-07-04 05:49] LABS: Basophils # (auto) 0.01 K/uL (0-0.2); Basophils % (auto) 0.1 %; Eosinophils # (auto) 0.31 K/uL (0-0.5); Eosinophils % (auto) 4.2 %; Hematocrit (blood only) 29.8 % (37-47); Hemoglobin 8.9 g/dL (12.0-16.0); Immature Granulocytes # (auto) 0.01 K/uL (0.00-0.02); Immature Granulocytes % (auto) 0.1 %; Lymphocytes # (auto) 1.82 K/uL (1.2-3.4); Lymphocytes % (auto) 24.8 %; Mean Corpuscular Hgb Conc 29.9 g/dL (32-36); Mean Corpuscular Volume 73.6 fL (80-100); Mean Platelet Volume 8.9 fL (7.4-10.4); Monocytes # (auto) 0.62 K/uL (0.11-0.59); Monocytes % (auto) 8.4 %; Neutrophils # (auto) 4.58 K/uL (1.4-6.5); Neutrophils % (auto) 62.4 %; Platelet Count 400 K/uL (130-400); RDW Coefficient of Variation 16.7 % (11.5-14.5); RDW Standard Deviation 45.4 fL (36.4-46.3); Red Blood Count 4.05 M/uL (4.2-5.4); White Blood Count 7.35 K/uL (4.8-10.8)
[2020-07-04 06:12] LABS: Ovalocytes 1+
[2020-07-04 06:20] LABS: Creatinine Clr Calc Pharmacy 90.8 ml/min; Est GFR (Non-African American) 79.3
[2020-07-04] MEDS: ONDANSETRON INJ 2 MG/ML 2 ML VIAL IV PRN (06:37)
--- NOTE | 2020-07-04 09:25 | Orthopedic Progress Note ---
Date of Service July 04, 2020 Assessment & Plan (1) Infection of total left knee replacement: Postop day 3 status post explant infected left TKA with implantation of temporary articulating spacer. PT OT protocols. Weightbearing as tolerated with immobilizer/brace locked in extension on for ambulation. When not ambulating, brace can be 0 to 90 degrees. DVT prophylaxis-aspirin p.o. twice daily, SCDs, MEMO hose Pain management as written. Intra op cultures showing staph lugdunensis, out side source confirmed Staph Lugdunensis. ID input appreciated and recommend cefazolin 2 GM IV q8h for 6 weeks. D/C vanco and zosyn. PICC line placed. Plan for discharge to home today with home health services and IV antibiotics. Hold stool softener and Senokot. Admission and Anticipated Discharge Date Admission Date: July 02, 2020 Subjective Postop day 3 Patient sitting up in her bed awake and alert. States that she had a bit of diarrhea this morning. Denies bloating or distention of her abdomen. Denies abdominal tenderness or cramping. She states that she has been passing a lot of gas with the diarrhea. No foul odor. Having some pain this morning but t olerating well. States that her brace is rubbing her in certain areas and would like to see if it can be readjusted. No other complaints. Physical Exam Physical Exam: Patient with left hinged knee brace currently on. Left knee with swelling. Onesimo dressing is clean, dry, and intact. Calves are soft and nontender. Neurovascular is intact. Toes are mobile. Results & Data ([facility]) Vital Signs (Past 12 Hours) Vital Signs Temp Pulse Resp BP Pulse Ox 07/04/20 06:10 37.4 C 97 H 18 129/78 95 07/03/20 23:33 37.9 C H 101 H 18 121/50 L 91 07/03/20 21:31 120/76
[2020-07-04] MEDS: HYDROCODONE/ACETAMOPHEN 5/325MG TAB PO PRN ×3 (09:36→23:18)
[2020-07-04] MEDS: GABAPENTIN 300 MG CAP PO SCH ×2 (09:38→21:03)
[2020-07-04] MEDS: ASPIRIN 81 MG ECTAB PO SCH ×2 (09:38→21:02)
[2020-07-04] MEDS: buPROPion SR 150 MG TABCR PO SCH ×2 (09:38→21:03)
[2020-07-04] MEDS: LORATADINE 10 MG TAB PO SCH (09:39)
[2020-07-04] MEDS: MULTIVITAMIN TAB PO SCH (09:39)
[2020-07-04] MEDS: LIDOCAINE HCL 5% OINT 30 GM TUBE TOP SCH ×2 (09:39→21:03)
[2020-07-04] MEDS: FERROUS GLUCONATE 324 MG TAB PO SCH ×2 (09:39→17:40)
[2020-07-04] MEDS: MAGNESIUM OXIDE 400 MG TAB PO SCH ×2 (09:39→21:02)
[2020-07-04] MEDS: DOCUSATE SODIUM 100 MG CAP PO SCH (10:11)
--- NOTE | 2020-07-04 11:22 | Hospitalist Progress Note ---
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 Kevin -Patient received preoperative cefazolin and also currently on Vancomycin. Hospitalist medicine consulted for post-operative management on 07/01/2020. hospitalist ordered blood culture and labs for inflammatory markers and expanded antibiotic coverage to include Zosyn besides the Vancomycin -review of 07/01/2020 left knee stains of no organisms and orthopedics comment on 07/02/2020 that outside culture smith sensitive staph lugdenensis -no current leukocytosis -orthopedic requested [facility] Infectious Disease consultation -[facility] Infection Disease telemedicine consult 07/02/2020 " If the organism is truly susceptible to oxacillin, may stop zosyn and vancomycin and start cefazolin 2 gm Iv [id number] for total 6 weeks from 07/01/20 - patient will need weekly CBC w/ diff and BMP and biweekly CRP while on cefazolin - patient may follow up w/ ID outpatient clinic w/in 3-5 weeks Follow up: in 4 week(s) Pepe Luevano MD Infectious Disease, [place] [address] " -patient had PICC line placed on 07/04/2020 as ordered by orthopedics and antibiotics switched to IV cefazolin to follow the ID recommendaions -wound care management as per orthopedic service, activities as per orthopedic service -prn pain medications with bowel regimen -on room air, encourage incentive spirometer (2) Diabetes mellitus, type 2: Type 2 diabetes mellitus with jail current use of insulin with diabetic neuropathy -patient uses sliding scale insulin at home and oral Jardiance 25 mg daily, there is active pharmacy glycemic consult for managing the diabetes with insulin -the hypoglycemia from 07/01/2020 evening has resolved, continue the pharmacy glycemic consult management Hypertension -continue home dose lisinopril 2.5 mg qhs (3) Diabetic neuropathy: -on oral gabapentin at home and topical lidocaine ointment for the feet -PT/OT consult Anxiety -continue home dose Klonopin and Wellbutrin DVT prophylaxis: has aspirin for DVT prophylaxis as per orthopedics hospitalist medicine will continue to follow Full Code Status [phone] Admission and Anticipated Discharge Date Admission Date: July 02, 2020 Subjective no acute distress. Patient has the PICC line for the IV cefazolin. breathing on room air. no chest pain. no abdomen pain. no vomiting. Review of Systems Review of Systems: All systems reviewed & are unremarkable except as noted in Subjective Physical Exam Constitutional: comfortable Eyes: PERRL, conjunctivae normal, anicteric sclerae EOM intact bilaterally ENMT: external ear and nose normal, oropharynx normal Neck: trachea midline, no thyromegaly normal visual inspection Respiratory: normal respiratory effort, lungs clear to auscultation Cardiovascular: Rate/Rhythm: regular rate Gastrointestinal (Abdomen): normal bowel sounds, soft, nontender, no hepatosplenomegaly Musculoskeletal: Head/Neck/Chest: normocephalic patient has left leg brace and wound vac Neurologic: PERRL, EOMI, accommodation nl, no face palsy, no dysarthria CN's II-XI intact bilaterally Psychiatric: A+Ox3, euthymic affect Results & Data Results & Data ([facility]) Vital Signs (Past 12 Hours) Vital Signs Temp Pulse Resp BP Pulse Ox 07/04/20 06:10 37.4 C 97 H 18 129/78 95 07/03/20 23:33 37.9 C H 101 H 18 121/50 L 91
[2020-07-04] MEDS: GABAPENTIN 600 MG TAB PO SCH (17:40)
[2020-07-04] MEDS: lisinopril 2.5 MG TAB PO SCH (21:01)
[2020-07-04] MEDS: clonazePAM 1 MG TAB PO SCH (21:02)
[2020-07-05] MEDS: ceFAZolin 2,000 MG in SYRINGE 0 ML IV SCH ×3 (05:52→21:52)
[2020-07-05 06:25] LABS: Basophils # (auto) 0.01 K/uL (0-0.2); Basophils % (auto) 0.2 %; Eosinophils # (auto) 0.26 K/uL (0-0.5); Eosinophils % (auto) 4.2 %; Hematocrit (blood only) 28.5 % (37-47); Hemoglobin 8.3 g/dL (12.0-16.0); Immature Granulocytes # (auto) 0.01 K/uL (0.00-0.02); Immature Granulocytes % (auto) 0.2 %; Lymphocytes # (auto) 2.21 K/uL (1.2-3.4); Lymphocytes % (auto) 35.5 %; Mean Corpuscular Hemoglobin 21.7 pg (25-34); Mean Corpuscular Hgb Conc 29.1 g/dL (32-36); Mean Corpuscular Volume 74.4 fL (80-100); Mean Platelet Volume 8.7 fL (7.4-10.4); Monocytes # (auto) 0.48 K/uL (0.11-0.59); Monocytes % (auto) 7.7 %; Neutrophils # (auto) 3.25 K/uL (1.4-6.5); Neutrophils % (auto) 52.2 %; Platelet Count 418 K/uL (130-400); RDW Standard Deviation 46.8 fL (36.4-46.3); Red Blood Count 3.83 M/uL (4.2-5.4); White Blood Count 6.22 K/uL (4.8-10.8)
[2020-07-05 06:53] LABS: Creatinine Clr Calc Pharmacy 104.2 ml/min; Est GFR (African American) 108.7; Est GFR (Non-African American) 93.8
[2020-07-05 07:00] LABS: RBC Morphology Unremarkable
--- NOTE | 2020-07-05 07:21 | Orthopedic Progress Note ---
Date of Service July 05, 2020 Assessment & Plan (1) Infection of total left knee replacement: Postop day 4 status post explant infected left TKA with implantation of temporary articulating spacer. PT OT protocols. Weightbearing as tolerated with immobilizer/brace locked in extension on for ambulation. When not ambulating, brace can be 0 to 90 degrees. DVT prophylaxis-aspirin p.o. twice daily, SCDs, MEMO hose Pain management as written. Intra op cultures showing staph lugdunensis, out side source confirmed Staph Lugdunensis. ID input appreciated and recommend cefazolin 2 GM IV q8h for 6 weeks. D/C vanco and zosyn. PICC line placed. Plan for discharge to home with home health services and IV antibiotics. Hold stool softener and Senokot. HH cannot see patient until Tuesday. Will plan on discharge home Tuesday. Admission and Anticipated Discharge Date Admission Date: July 02, 2020 Subjective POD#4. Patient resting in bed, pain improving. No current complaints. Denies chest smith, sob, n/v, dizziness, fever or chills Review of Systems Review of Systems: All systems reviewed & are unremarkable except as noted in HPI & below Physical Exam Physical Exam: JULIÁN in place to left knee. Brace in place and well fitting. No calf tenderness. No erythema of surrounding knee. Toes are mobile with good dorsiflexion. Distally n/v status and sensation are incat. Constitutional: well developed and well nourished; no acute distress Results & Data ([facility]) Vital Signs (Past 12 Hours) Vital Signs Temp Pulse Resp BP BP Pulse Ox 07/04/20 23:04 37.5 C 94 H 15 107/67 95 07/04/20 21:00 37.3 C 90 114/69 96
--- NOTE | 2020-07-05 09:43 | Hospitalist Progress Note ---
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 Kevin -Patient received preoperative cefazolin and also currently on Vancomycin. Hospitalist medicine consulted for post-operative management on 07/01/2020. hospitalist ordered blood culture and labs for inflammatory markers and expanded antibiotic coverage to include Zosyn besides the Vancomycin -review of 07/01/2020 left knee stains of no organisms and orthopedics comment on 07/02/2020 that outside culture smith sensitive staph lugdenensis -no current leukocytosis -orthopedic requested [facility] Infectious Disease consultation -[facility] Infection Disease telemedicine consult 07/02/2020 " If the organism is truly susceptible to oxacillin, may stop zosyn and vancomycin and start cefazolin 2 gm Iv [id number] for total 6 weeks from 07/01/20 - patient will need weekly CBC w/ diff and BMP and biweekly CRP while on cefazolin - patient may follow up w/ ID outpatient clinic w/in 3-5 weeks Follow up: in 4 week(s) Pepe Luevano MD Infectious Disease, [place] [id number] " -patient had PICC line placed on 07/04/2020 as ordered by orthopedics and antibiotics switched to IV cefazolin to follow the ID recommendations, continuing daily cefazolin at this time -wound vac management as per orthopedic service, activities as per orthopedic service, patient has left leg brace -prn pain medications with bowel regimen -on room air, encourage incentive spirometer 07/05/2020: Patient remains using the left leg brace. no distress and breathing on room air. however she reports pain around the area of 1 of the maya of the left leg brace. Discussed with patient that this may be related to left leg brace pressure, but in worst case situation that a deep vein thrombosis is possible in a patient after surgery and with relative left leg immobility - options of conservative management vs leg imaging discussed. Patient prefers to have left lower extremity ultrasound of the leg at this time and this is ordered (2) Diabetes mellitus, type 2: Type 2 diabetes mellitus with mcfp current use of insulin with diabetic neuropathy -patient uses sliding scale insulin at home and oral Jardiance 25 mg daily, there is active pharmacy glycemic consult for managing the diabetes with insulin -the hypoglycemia from 07/01/2020 evening has resolved, continue the pharmacy glycemic consult management Hypertension -continue home dose lisinopril 2.5 mg qhs (3) Diabetic neuropathy: -on oral gabapentin at home and topical lidocaine ointment for the feet -PT/OT consult Anxiety -continue home dose Klonopin and Wellbutrin DVT prophylaxis: has aspirin for DVT prophylaxis as per orthopedics hospitalist medicine will continue to follow left lower extremity ultrasound Full Code Status [phone] Admission and Anticipated Discharge Date Admission Date: July 02, 2020 Subjective 07/05/2020: Patient remains using the left leg brace. no distress and breathing on room air. however she reports pain around the area of 1 of the maya of the left leg brace. Discussed with patient that this may be related to left leg brace pressure, but in worst case situation that a deep vein thrombosis is possible in a patient after surgery and with relative left leg immobility - options of conservative management vs leg imaging discussed. Patient prefers to have left lower extremity ultrasound of the leg at this time. no abdomen pain, no chest pain, no shortness of breath, no vomiting Review of Systems Review of Systems: All systems reviewed & are unremarkable except as noted in Subjective Physical Exam Constitutional: comfortable Eyes: PERRL, conjunctivae normal, anicteric sclerae EOM intact bilaterally ENMT: external ear and nose normal, oropharynx normal Neck: trachea midline, no thyromegaly normal visual inspection Respiratory: normal respiratory effort, lungs clear to auscultation Cardiovascular: Rate/Rhythm: regular rate Gastrointestinal (Abdomen): normal bowel sounds, soft, nontender, no hepatosplenomegaly Musculoskeletal: Head/Neck/Chest: normocephalic left leg in brace, left knee has wound vac Neurologic: PERRL, EOMI, accommodation nl, no face palsy, no dysarthria CN's II-XI intact bilaterally Psychiatric: A+Ox3, euthymic affect Results & Data Results & Data ([facility]) Vital Signs (Past 12 Hours) Vital Signs Temp Pulse Pulse Resp BP Pulse Ox 07/05/20 07:37 37.1 C 85 16 115/67 96 07/04/20 23:04 37.5 C 94 H 15 107/67 95
[2020-07-05] MEDS: HYDROCODONE/ACETAMOPHEN 5/325MG TAB PO PRN ×3 (09:48→23:23)
[2020-07-05] MEDS: NovoLOG INSULIN PUMP SCH ×4 (09:51→22:40)
[2020-07-05] MEDS: GABAPENTIN 300 MG CAP PO SCH ×2 (09:52→21:43)
[2020-07-05] MEDS: buPROPion SR 150 MG TABCR PO SCH ×2 (09:52→21:38)
[2020-07-05] MEDS: LORATADINE 10 MG TAB PO SCH (09:53)
[2020-07-05] MEDS: ASPIRIN 81 MG ECTAB PO SCH ×2 (09:53→21:44)
[2020-07-05] MEDS: FERROUS GLUCONATE 324 MG TAB PO SCH ×2 (09:53→17:59)
[2020-07-05] MEDS: MAGNESIUM OXIDE 400 MG TAB PO SCH ×2 (09:53→21:44)
[2020-07-05] MEDS: MULTIVITAMIN TAB PO SCH (09:53)
[2020-07-05] MEDS: LIDOCAINE HCL 5% OINT 30 GM TUBE TOP SCH ×2 (09:53→21:43)
--- NOTE | 2020-07-05 11:20 | Ultrasound Report ---
US venous doppler LE LT CLINICAL HISTORY: Left leg swelling. History of surgery. COMPARISON STUDY: No previous studies for comparison. FINDINGS: Real-time and color flow Doppler imaging were performed. Flow was seen within the femoral, popliteal and calf veins with no intraluminal thrombus demonstrated. The saphenous vein is patent. IMPRESSION: No evidence of left lower extremity DVT. ACT 112: Negative or not required by law. Electronically signed by: Oliverio Rivera M.D. 07/05/2020 11:18 AM
[2020-07-05] MEDS: GABAPENTIN 600 MG TAB PO SCH (17:59)
[2020-07-05] MEDS: clonazePAM 1 MG TAB PO SCH (21:38)
[2020-07-05] MEDS: lisinopril 2.5 MG TAB PO SCH (21:39)
[2020-07-06] MEDS: ceFAZolin 2,000 MG in SYRINGE 0 ML IV SCH ×3 (06:21→21:49)
--- NOTE | 2020-07-06 07:25 | Orthopedic Progress Note ---
Date of Service July 06, 2020 Assessment & Plan (1) Infection of total left knee replacement: Postop day 5 status post explant infected left TKA with implantation of temporary articulating spacer. PT OT protocols. Weightbearing as tolerated with immobilizer/brace locked in extension on for ambulation. When not ambulating, brace can be 0 to 90 degrees. DVT prophylaxis-aspirin p.o. twice daily, SCDs, MEMO hose Pain management as written. Intra op cultures showing staph lugdunensis, out side source confirmed Staph Lugdunensis. ID input appreciated and recommend cefazolin 2 GM IV q8h for 6 weeks. D/C vanco and zosyn. PICC line placed. Plan for discharge to home with home health services and IV antibiotics. HH cannot see patient until Tuesday. Will plan on discharge home Tuesday. Admission and Anticipated Discharge Date Admission Date: July 02, 2020 Subjective POD#5. Patient resting in bed, pain improving. No current complaints. Denies chest smith, sob, n/v/d, dizziness, fever or chills. Had Doppler due to some lower leg discomfort yesterday, negative for DVT. Review of Systems Review of Systems: All systems reviewed & are unremarkable except as noted in HPI & below Physical Exam Physical Exam: JULIÁN in place to left knee. Brace in place, was adjusted as it had slid down. No calf tenderness. No erythema of surrounding knee. Toes are mobile with good dorsiflexion. Distally n/v status and sensation are intact. Constitutional: well developed and well nourished; no acute distress Results & Data ([facility]) Vital Signs (Past 12 Hours) Vital Signs Temp Pulse Resp BP Pulse Ox 07/06/20 01:29 37.3 C 07/06/20 00:01 37.6 C H 87 15 101/62 95
[2020-07-06 08:03] LABS: Basophils # (auto) 0.01 K/uL (0-0.2); Basophils % (auto) 0.2 %; Eosinophils % (auto) 5.5 %; Hematocrit (blood only) 28.1 % (37-47); Hemoglobin 8.2 g/dL (12.0-16.0); Immature Granulocytes # (auto) 0.01 K/uL (0.00-0.02); Immature Granulocytes % (auto) 0.2 %; Lymphocytes # (auto) 1.97 K/uL (1.2-3.4); Lymphocytes % (auto) 36.1 %; Mean Corpuscular Hemoglobin 21.8 pg (25-34); Mean Corpuscular Hgb Conc 29.2 g/dL (32-36); Mean Corpuscular Volume 74.5 fL (80-100); Mean Platelet Volume 8.1 fL (7.4-10.4); Monocytes # (auto) 0.42 K/uL (0.11-0.59); Monocytes % (auto) 7.7 %; Neutrophils # (auto) 2.75 K/uL (1.4-6.5); Neutrophils % (auto) 50.3 %; Platelet Count 415 K/uL (130-400); RDW Standard Deviation 46.4 fL (36.4-46.3); Red Blood Count 3.77 M/uL (4.2-5.4); White Blood Count 5.46 K/uL (4.8-10.8)
[2020-07-06 08:41] LABS: RBC Morphology Unremarkable
[2020-07-06] MEDS: NovoLOG INSULIN PUMP SCH ×4 (09:33→21:12)
[2020-07-06] MEDS: FERROUS GLUCONATE 324 MG TAB PO SCH ×2 (09:34→18:13)
[2020-07-06] MEDS: ASPIRIN 81 MG ECTAB PO SCH ×2 (09:34→21:04)
[2020-07-06] MEDS: LORATADINE 10 MG TAB PO SCH (09:34)
[2020-07-06] MEDS: MAGNESIUM OXIDE 400 MG TAB PO SCH ×2 (09:34→21:04)
[2020-07-06] MEDS: MULTIVITAMIN TAB PO SCH (09:34)
[2020-07-06] MEDS: LIDOCAINE HCL 5% OINT 30 GM TUBE TOP SCH ×2 (09:35→21:13)
[2020-07-06] MEDS: buPROPion SR 150 MG TABCR PO SCH ×2 (09:35→21:04)
[2020-07-06] MEDS: GABAPENTIN 300 MG CAP PO SCH ×2 (09:35→21:04)
[2020-07-06] MEDS: HYDROCODONE/ACETAMOPHEN 5/325MG TAB PO PRN ×2 (09:42→22:16)
--- NOTE | 2020-07-06 09:49 | Pharmacy Report ---
Pharmacy Glycemic Short Note 2 - Date of Service July 06, 2020 - Glycemic Short BSG Results (Last 24 hours): 07/05/20 07/05/20 07/05/20 12:23 17:25 20:28 POC Glucose 141 H 132 H 138 H 07/06/20 08:25 POC Glucose 112 H OUTPATIENT ANTIDIABETIC REGIMEN: * Novolog insulin pump * Basal rate 1.3 units/hr (1041-1168), 1.5 units/hr (7326-7404) * Correction factor: 30 mg/dL/unit * Carb ratio: 1 unit per 4 grams CHO * BSG range: 130-160 mg/dL * Jardiance 25 mg PO qAM * HbA1c: 8.1% (06/27/20) ASSESSMENT: 07/06/20: * POD # 5 s/p left total knee revision * BSG at goal, continue home pump * DC tomorrow with home health on 6 weeks IV cefazolin 07/03/20: * POD # 2 s/p left total knee revision * BSG values have improved over the past 12 or so hours likely due to improved oral intake * No changes required at this time 07/02/20: * SN is a 49 year old female POD #1 s/p left total knee revision secondary to infection of left knee * No intraoperative steroids * Currently receiving IV vancomycin and Zosyn for treatment of infection * Patient has been managing her BSGs per her insulin pump - trended low yesterday evening (66 mg/dL at 2100 check) * Of note, patient was nauseated last evening following surgery and had limited appetite, which may explain this low * She is confident continuing to manage her therapy while inpatient (can set temporary basal rates if needed) * concrete mason met with patient this morning - pump settings were obtained and relayed to pharmacy. PLAN FOR INPATIENT GLYCEMIC CONTROL: * Hold outpatient oral diabetes medications * Patient will continue to manage BSGs with insulin pump per outpatient settings. * RN will have patient read and sign agreement [id number] Insulin Pump Therapy Patient Agreement. * RN will provide and explain form NS-824 Flowsheet for Patient * Patient will document their insulin dose given on NS-824 which is kept at the bedside, available to caregivers upon request, and which becomes part of the permanent medical record. * If at any time the patients condition evidences that he/she is not able to manage the insulin pump (i.e. frequent hypo/hyperglycemia) Pharmacy will assume glycemic control by discontinuing the pump & managing with SQ basal bolus insulin regimen for the interim. DISCHARGE RECOMMENDATIONS * Continue insulin pump on discharge * Notify MTM clinic for dose adjustment with BG values persistently above/below target
--- NOTE | 2020-07-06 10:45 | Hospitalist Progress Note ---
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 Kevin -Patient received preoperative cefazolin and also currently on Vancomycin. Hospitalist medicine consulted for post-operative management on 07/01/2020. hospitalist ordered blood culture and labs for inflammatory markers and expanded antibiotic coverage to include Zosyn besides the Vancomycin -review of 07/01/2020 left knee stains of no organisms and orthopedics comment on 07/02/2020 that outside culture smith sensitive staph lugdenensis -no current leukocytosis -orthopedic requested [facility] Infectious Disease consultation -[facility] Infection Disease telemedicine consult 07/02/2020 " If the organism is truly susceptible to oxacillin, may stop zosyn and vancomycin and start cefazolin 2 gm Iv [id number] for total 6 weeks from 07/01/20 - patient will need weekly CBC w/ diff and BMP and biweekly CRP while on cefazolin - patient may follow up w/ ID outpatient clinic w/in 3-5 weeks Follow up: in 4 week(s) Pepe Luevano MD Infectious Disease, [address] [address] " -patient had PICC line placed on 07/04/2020 as ordered by orthopedics and antibiotics switched to IV cefazolin to follow the ID recommendations, continuing daily cefazolin at this time for 6 weeks -wound vac management as per orthopedic service, activities as per orthopedic service, patient has left leg brace -prn pain medications with bowel regimen -on room air, encourage incentive spirometer 07/05/2020: Patient remains using the left leg brace. no distress and breathing on room air. however she reports pain around the area of 1 of the maya of the left leg brace. Discussed with patient that this may be related to left leg brace pressure, but in worst case situation that a deep vein thrombosis is possible in a patient after surgery and with relative left leg immobility - options of conservative management vs leg imaging discussed. Patient prefers to have left lower extremity ultrasound of the leg at this time and this is ordered 07/06/2020: patient's blood counts have overall trended down to 8.3 on 07/05/2020 and 8.2 on 07/06/2020 since the surgery likely because of post- operative anemia and wound vac collecting further blood drainage. discussed with patient that anemia is being managed by orthopedics with twice a day oral iron supplements. discussed with patient other options of raising blood counts such as IV Venofer versus blood transfusion. patient to consider all options. 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 with diabetic neuropathy -patient uses sliding scale insulin at home and oral Jardiance 25 mg daily, there is active pharmacy glycemic consult for managing the diabetes with insulin -the hypoglycemia from 07/01/2020 evening has resolved, continue the pharmacy glycemic consult management Hypertension -continue home dose lisinopril 2.5 mg qhs (3) Diabetic neuropathy: -on oral gabapentin at home and topical lidocaine ointment for the feet -PT/OT consult Anxiety -continue home dose Klonopin and Wellbutrin DVT prophylaxis: has aspirin for DVT prophylaxis as per orthopedics hospitalist medicine will continue to follow left lower extremity ultrasound Full Code Status [phone] Admission and Anticipated Discharge Date Admission Date: July 02, 2020 Subjective discussed with patient that anemia is being managed by orthopedics with twice a day oral iron supplements. discussed with patient other options of raising blood counts such as IV Venofer versus blood transfusion. patient to consider all options. breathing on room air. no acute distress. no chest pain. no shortness of breath. no dizziness. no vomiting Review of Systems Review of Systems: All systems reviewed & are unremarkable except as noted in Subjective Physical Exam Constitutional: comfortable Eyes: PERRL, conjunctivae normal, anicteric sclerae EOM intact bilaterally ENMT: external ear and nose normal, oropharynx normal Neck: trachea midline, no thyromegaly normal visual inspection Respiratory: normal respiratory effort, lungs clear to auscultation Cardiovascular: Rate/Rhythm: regular rate Gastrointestinal (Abdomen): normal bowel sounds, soft, nontender, no hepatosplenomegaly Musculoskeletal: Head/Neck/Chest: normocephalic Neurologic: PERRL, EOMI, accommodation nl, no face palsy, no dysarthria CN's II-XI intact bilaterally Psychiatric: A+Ox3, euthymic affect Results & Data Results & Data ([facility]) Vital Signs (Past 12 Hours) Vital Signs Temp Pulse Pulse Resp BP Pulse Ox 07/06/20 07:52 36.8 C 80 16 101/61 95 07/06/20 01:29 37.3 C 07/06/20 00:01 37.6 C H 87 15 101/62 95
[2020-07-06] MEDS: GABAPENTIN 600 MG TAB PO SCH (18:13)
[2020-07-06] MEDS: lisinopril 2.5 MG TAB PO SCH (21:03)
[2020-07-06] MEDS: clonazePAM 1 MG TAB PO SCH (21:14)
[2020-07-07] MEDS: ceFAZolin 2,000 MG in SYRINGE 0 ML IV SCH (06:16)
[2020-07-07] MEDS: LORATADINE 10 MG TAB PO SCH (07:59)
[2020-07-07] MEDS: FERROUS GLUCONATE 324 MG TAB PO SCH (07:59)
[2020-07-07] MEDS: ASPIRIN 81 MG ECTAB PO SCH (07:59)
[2020-07-07] MEDS: MULTIVITAMIN TAB PO SCH (07:59)
[2020-07-07] MEDS: MAGNESIUM OXIDE 400 MG TAB PO SCH (07:59)
[2020-07-07] MEDS: buPROPion SR 150 MG TABCR PO SCH (07:59)
[2020-07-07] MEDS: GABAPENTIN 300 MG CAP PO SCH (08:00)
[2020-07-07] MEDS: LIDOCAINE HCL 5% OINT 30 GM TUBE TOP SCH (08:00)
[2020-07-07] MEDS: HYDROCODONE/ACETAMOPHEN 5/325MG TAB PO PRN (08:43)
[2020-07-07 08:44] LABS: Hematocrit (blood only) 29.6 % (37-47); Hemoglobin 8.5 g/dL (12.0-16.0); Mean Corpuscular Hemoglobin 21.3 pg (25-34); Mean Corpuscular Hgb Conc 28.7 g/dL (32-36); Mean Corpuscular Volume 74.2 fL (80-100); Mean Platelet Volume 8.5 fL (7.4-10.4); Platelet Count 480 K/uL (130-400); RDW Coefficient of Variation 16.9 % (11.5-14.5); RDW Standard Deviation 46.3 fL (36.4-46.3); Red Blood Count 3.99 M/uL (4.2-5.4); White Blood Count 4.87 K/uL (4.8-10.8)
[2020-07-07] MEDS: NovoLOG INSULIN PUMP SCH ×2 (08:44→12:45)
[2020-07-07 09:03] LABS: Basophils # (auto) 0.02 K/uL (0-0.2); Basophils % (auto) 0.4 %; Eosinophils # (auto) 0.37 K/uL (0-0.5); Eosinophils % (auto) 7.6 %; Microcytosis Present; Monocytes # (auto) 0.33 K/uL (0.11-0.59); Monocytes % (auto) 6.8 %; Neutrophils # (auto) 2.35 K/uL (1.4-6.5); Neutrophils % (auto) 48.2 %
--- NOTE | 2020-07-07 10:02 | Orthopedic Progress Note ---
Date of Service July 07, 2020 Assessment & Plan (1) Infection of total left knee replacement: Postop day 6 status post explant infected left TKA with implantation of temporary articulating spacer. PT OT protocols. Weightbearing as tolerated with immobilizer/brace locked in extension on for ambulation. When not ambulating, brace can be 0 to 90 degrees. DVT prophylaxis-aspirin p.o. twice daily, SCDs, MEMO hose Pain management as written. Intra op cultures showing staph lugdunensis, out side source confirmed Staph Lugdunensis. ID input appreciated and recommend cefazolin 2 GM IV q8h for 6 weeks. PICC line placed. Plan for discharge to home with home health services and IV antibiotics, SS confirmed HH can start today so will plan for D/C. Admission and Anticipated Discharge Date Admission Date: July 02, 2020 Subjective POD#6. Patient resting in bed, pain improving. No current complaints. Denies chest smith, sob, n/v/d, dizziness, fever or chills. Doing well in PT. Hgb improved to 8.5 this AM. Per SS, HH avail today. Physical Exam Physical Exam: LEft knee wound vac c/d/i, no drainage. Toes/ ankle mobile. No calf tenderness, recent doppler neg for DVT. A&O X3. VSS. Results & Data ([facility]) Vital Signs (Past 12 Hours) Vital Signs Temp Pulse Pulse Resp BP Pulse Ox 07/07/20 07:42 36.7 C 77 16 102/64 97 07/06/20 23:38 37.4 C 84 16 109/61 94
--- NOTE | 2020-07-07 10:30 | Hospitalist Progress Note ---
Date of Service July 07, 2020 Assessment & Plan (1) Infection of total left knee replacement: S/P revision / irrigation / debridement. POD # 6. ID consulted. 6 wk course of IV cefazolin recommended. Arrangements being made for home IV therapy. (2) Anemia: Hgb 10.7 >>> 8.5. Acute blood loss anemia secondary to surgery. H/H stable last few days. No need for transfusion per current guidelines. DC on ferrous sulfate 325 mg daily. (3) HTN (hypertension): BP this morning 114/69. Continue lisinopril. (4) Asthma: Pulmonary status stable. (5) Diabetes mellitus, type 2: FBS 138. Discharge on usual regimen. (6) Discharge planning issues: Arrangements being made for discharge to home with home health nursing + IV antibiotics. Weekly labs ordered; Case Management asked to have copies sent to PCP. Medical follow-up with Marce Shine PA-C. (7) Encounter for consultation: Thank you for this consultation. We will follow the patient with you during their hospital stay. My cell # is [phone]. You can reach a member of the [facility] Medicine Team 11/04 via pager @ [phone]. Admission and Anticipated Discharge Date Admission Date: July 02, 2020 Subjective Recheck for medical management. Patient seen in their room around 0950. Doing well. Plans on going home today with outpatient antibiotic therapy. No fever. No chest pain. No cough or SOB. No nausea, vomiting, melena, hematochezia. Physical Exam Constitutional: no acute distress Respiratory: no respiratory distress Auscultation: lungs clear to aus cultation bilaterally Cardiovascular: Rate/Rhythm: regular rate and regular rhythm Vessels: no JVD Extremities: + edema (1+ pretibial edema LLE); no calf tenderness Gastrointestinal (Abdomen): normal bowel sounds, soft, nontender, no hepatosplenomegaly Musculoskeletal: Extremities: + extremities abnormal to inspection (postop swelling + WoundVac L knee) Skin: no rashes, warm and dry Psychiatric: Orientation: alert and oriented x 3 Results & Data Results & Data ([facility]) Vital Signs (Past 12 Hours) Vital Signs Temp Pulse Pulse Resp BP BP Pulse Ox 07/07/20 10:27 36.7 C 77 84 16 114/69 102/64 97 07/07/20 07:42 36.7 C 77 16 102/64 97 07/06/20 23:38 37.4 C 84 16 109/61 94 Laboratory Results Laboratory Results - last 24 hr 07/06/20 07/06/20 07/06/20 12:34 17:27 17:30 WBC RBC Hgb Hct MCV MCH MCHC RDW Std Deviation RDW Coeff of Gareth Plt Count MPV Immature Gran % (Auto) Neut % (Auto) Lymph % (Auto) [place] % (Auto) Eos % (Auto) Baso % (Auto) Neut # (Auto) Lymph # (Auto) [place] # (Auto) Eos # (Auto) Baso # (Auto) Immature Gran # (Auto) Microcytosis POC Glucose 130 H 69 L* 72 07/06/20 07/07/20 07/07/20 20:20 07:53 08:22 WBC 4.87 RBC 3.99 L Hgb 8.5 L Hct 29.6 L MCV 74.2 L MCH 21.3 L MCHC 28.7 L RDW Std Deviation 46.3 RDW Coeff of Gareth 16.9 H Plt Count 480 H MPV 8.5 Immature Gran % (Auto) 0.0 Neut % (Auto) 48.2 Lymph % (Auto) 37.0 [place] % (Auto) 6.8 Eos % (Auto) 7.6 Baso % (Auto) 0.4 Neut # (Auto) 2.35 Lymph # (Auto) 1.80 [place] # (Auto) 0.33 Eos # (Auto) 0.37 Baso # (Auto) 0.02 Immature Gran # (Auto) 0.00 Microcytosis Present POC Glucose 106 H 138 H 07/07/20 12:03 WBC RBC Hgb Hct MCV MCH MCHC RDW Std Deviation RDW Coeff of Gareth Plt Count MPV Immature Gran % (Auto) Neut % (Auto) Lymph % (Auto) [place] % (Auto) Eos % (Auto) Baso % (Auto) Neut # (Auto) Lymph # (Auto) [place] # (Auto) Eos # (Auto) Baso # (Auto) Immature Gran # (Auto) Microcytosis POC Glucose 157 H
--- NOTE | 2020-07-09 14:18 | Discharge Summary (DS) ---
DISCHARGE DIAGNOSIS: Septic left total knee arthroplasty. SECONDARY DIAGNOSES: Asthma, history of polycystic ovarian syndrome, diabetes mellitus type 2, diabetic neuropathy, dry eye syndrome, hypertension, obesity, osteoarthritis, seasonal allergies. CONSULTS: Dr. Chamberlain. COMPLICATIONS: None. PROCEDURES: Revision of left total knee arthroplasty to an articulated cement spacer including irrigation and debridement, explantation of hardware and implantation of antibiotic beads and articulated spacer by Dr. Kevin on 07/01/2020. BRIEF HISTORY: As dictated in history and physical. HOSPITAL SUMMARY: The patient was admitted on the above-noted date and had the above-noted surgery performed, which she tolerated well. Postoperatively, she was started on IV vancomycin with pending cultures. Preoperative cultures were showing Staph lugdunensis that was MSSA. On her first postoperative day, she was awake and alert without complaints other than some mild burning discomfort on top of the knee. Pain was controlled. Multiple questions were answered about plans for the future with antibiotics, etc. Dressings clean, dry and intact. Calves were soft, nontender. Neurovascularly was intact. Toes were mobile. She had good dorsiflexion and plantar flexion of the left foot. Hemovac drainage was 150 mL from the previous shift and she was wearing her immobilizer, which was removed for exam. Vital signs were stable. She was afebrile. Hemoglobin was 9.8 and she was started on PT and OT protocols, weightbearing as tolerated with immobilizer for ambulation. A hinged knee brace was ordered to help with stabilty with the articulated spacer and placed by the orthotics team and was locked in extension for ambulation and unlocked for 0-90 degrees of flexion durng bedside exericises. She was continued on her current IV antibiotic regimen and was continued on her protocol. She was continued on medical management from [facility] hospitalist team and infectious disease consult was placed for the [facility] infectious disease team. The outpatient culture results were faxed to the attending physician taking care of her consult and plans were to await their input for IV antibiotic administration. By her second postoperative day, she had no complaints. Pain was controlled. She was afebrile. Left knee wound VAC was intact without drainage. Toes were mobile. Calves were nontender and she was continued on her protocols. She complained of some diarrhea by the third postoperative day, but denied bloating or distention of her abdomen. She denied any abdominal tenderness or cramping. She had been passing flatus with the diarrhea with no foul odor. The brace that had been fitted was rubbing her legs in certain areas and was planned to be readjusted by orthotics team. She had some left knee swelling not unusal for the procedure performed. Dressing was clean, dry and intact. Calves were soft, nontender, neurovascularly intact. A PICC line had been placed. Her intraoperative cultures were showing Staph lugdunensis with the outside source confirmed as well. Infectious disease was planning for cefazolin 2 grams IV q. 8 hours due to sensitivities. Vancomycin was discontinued as well as Zosyn, which was started by the [facility] hospitalist team. Plans were for home health IVs; however, their services for home health were not available at the time of discharge. She remained in the hospital over the next several days and continued to remain stable. By 07/07/2020 her pain control continued to improve. She had no current complaints on that day. She was doing well with her PT. Hemoglobin was around 8.5. Wound VAC remained intact without drainage. Calves were soft, nontender. A Doppler was ordered due to some lower leg discomfort which was negative for DVT. Toes were mobile. Vital signs were stable. She was remaining medically stable as well as orthopedically stable and it was felt that she could be discharged to home on IV antibiotics on 07/07/2020. For further review, please see chart. LABORATORY AND X-RAY DATA: As per chart. DISCHARGE INSTRUCTIONS: The patient was discharged to home in satisfactory condition on 07/07/2020. DIET: Diabetic. ACTIVITY: Weightbearing as tolerated left lower extremity with brace or immobilizer on, use of walker. Follow total knee instruction sheets as written. The patient will be receiving IV antibiotics for up to 6 weeks and have weekly blood work. Plans to wear the immobilizer or brace during ambulation. Knee range of motion can be 0-90 degrees and no greater. Brace can be locked in extension for ambulating. Follow special care instructions as well and follow up with [facility] infectious disease in 3-4 weeks. Follow up with Dr. Kevin in 2 weeks. The patient to call for appointment if one has not been made for you. DISCHARGE MEDICATIONS: Aspirin 81 mg p.o. b.i.d., cefazolin 2 grams IV q. 8 hours for 42 days, ferrous sulfate 325 mg p.o. daily, Drain 1-2 tabs p.o. q. 4 hours p.r.n. Resume home meds as listed. Stop taking glucosamine and turmeric. MTDD
== END 2020-07-07 13:30 | disposition home health service (06) | DRG 464 ==
LOC: 3E 10:52 → ASU 10:52

== ENCOUNTER 2020-09-03 05:06 | Inpatient (IN) ==
--- NOTE | 2020-08-22 10:58 | Anesthesiology Consultation ---
Date of Service August 22, 2020 Assessment & Plan (1) Encounter for pre-operative examination: - Per assessment on 08/21: Travel screen negative. No known COVID-19 positive contacts or current COVID-19 related symptoms. Surgeon arranging preop COVID te sting (scheduled 08/29; [facility])- [facility] surgeon's office made aware of proximity of planned preop COVID testing and recommendation to have patient do 08/28 if possible. Awaiting results. - Check BSG AM DOS - [facility] admission: 07/02-07/07/20: Patient had Left total knee revision, I&D, synovectomy, placement antibiotic beads, wound VAC (07/01/20): SAB at L3/L4 + PNB at [facility]. Per hospital notes/discharge summary, "Postoperatively, she was started on IV vancomycin with pending cultures. Preoperative cultures were showing Staph lugdunensis that was MSSA.. She was continued on her current IV antibiotic regimen and was continued on her protocol. She was continued on medical management from [facility] hospitalist team and infectious disease consult was placed for the [facility] infectious disease team. The outpatient culture results were faxed to the attending physician taking care of her consult and plans were to await their input for IV antibiotic administration. By her second postoperative day, she had no complaints. Pain was controlled. She was afebrile. Left knee wound VAC was intact without drainage.. Her intraoperative cultures were showing Staph lugdunensis.. Infectious disease was planning for cefazolin 2 grams IV q. 8 hours due to sensitivities. Vancomycin was discontinued as well as Zosyn, which was started by the [facility] hospitalist team. Plans were for home health IVs; however, their services for home health were not available at the time of discharge. She remained in the hospital over the next several days and continued to remain stable.. Hemoglobin was around 8.5. Wound VAC remained intact without drainage.. A Doppler was ordered due to some lower leg discomfort which was negative for DVT.. She was remaining medically stable as well as orthopedically stable and it was felt that she could be discharged to home on IV antibiotics on 07/07/2020." - Infectious disease telemedicine visit: 07/31/20: "Patient is tolerating cefazolin w/o any issue. She has not had any pain medication except for extra strength Tylenol due to prescription issue. The L knee pain is the worst when bearing weight. She has burning sensation on prepatellar area. Patient is not sure if she is supposed bear weight on L knee. She was instructed not to walk w/o brace, w/c she is following. Patient had pat removed 1 week post hospital discharge. Patient noticed a small opening at superior end of incision but it is not there today.. Continue cefazolin 2 gm Iv [id number] for total 6 weeks from 07/01/20, ending on 08/11/20.. Continue to check weekly CBC w/ diff and BMP and biweekly CRP while on cefazolin.. Patient will continue to follow up w/ ortho for the 2nd stage of the revision." Chart Review Chart Review: Acceptable Risk for Surgery (pending evaluation AM DOS) and Pat ient NOT seen in Pre Admission Testing History Surgery Operation Date: 09/03/20 10:20 Proposed Procedures p Left Knee Revise Cement Spacer to Total Knee Arthroplasty - Antonino Kevin MD Height/Weight Height: 5 ft 6 in Weight: 98.883 kg Allergies Allergy/AdvReac Type Severity Reaction Status Date / Time latex Allergy Intermediate Blistering Verified 08/22/20 10:31 ragweed pollen Allergy Mild Congestion Verified 08/22/20 10:31 pregabalin [From Lyrica] AdvReac Intermediate Agitation Verified 08/22/20 10:31 oxycodone AdvReac Vomiting, Verified 08/21/20 15:35 headache, constipation Medications Home Medications Medication Instructions Recorded Confirmed Last Taken Jardiance 25 mg PO QAM 09/03/19 08/21/20 06/27/20 albuterol sulfate 2 inh INHALATION Q6H PRN 09/03/19 08/21/20 06/30/20 20:00 bupropion HCl [Wellbutrin SR] 150 mg PO BID 09/03/19 08/21/20 07/01/20 09:00 cholecalciferol (vitamin D3) 1,000 unit PO QAM 09/03/19 08/21/20 06/27/20 [Vitamin D3] clonazepam [Klonopin] 1 mg PO QPM 09/03/19 08/21/20 06/27/20 gabapentin See Rx Instructions .ROUTE .COMPLEX 09/03/19 08/21/20 06/26/20 insulin aspart U-100 [Novolog 1 sliding scale dose SUBCUT 09/03/19 08/21/20 06/30/20 18:07 U-100 Insulin aspart] USEASDIRECTD 13.75 units lidocaine 1 applic TOPICAL BID 09/03/19 08/21/20 06/30/20 lisinopril [Zestril] 2.5 mg PO QPM 09/03/19 08/21/20 03/11/20 21:00 loratadine [Claritin Liqui-Gel] 10 mg PO QAM 09/03/19 08/21/20 06/27/20 multivitamin 1 tab PO QAM 09/03/19 08/21/20 06/27/20 vitamin B complex 1 tab PO QAM 09/03/19 08/21/20 06/30/20 09:00 vitamin E 100 unit PO QAM 09/03/19 08/21/20 06/27/20 magnesium 250 mg PO BID 10/08/19 08/21/20 06/27/20 celecoxib [Celebrex] 200 mg PO BID 30 Days #60 cap 10/10/19 08/21/20 06/27/20 hydrocodone-acetaminophen [[place]] 1 - 2 tab PO Q4H PRN #30 tab 07/04/20 08/21/20 Unknown ferrous sulfate 325 mg PO DAILY #30 tab 07/07/20 08/21/20 Unknown Past Medical History Medical History Anemia Asthma Bilateral polycystic ovarian syndrome Diabetes mellitus, type 2 IDDM (+ insulin pump) Diabetic neuropathy B/L feet + right ankle Dry eye syndrome HTN (hypertension) Obesity Osteoarthritis Seasonal allergies Past Family History Family History Grandfather (Maternal) Family history of diabetes mellitus Mother Family history of diabetes mellitus Sister No problems noted. Other FHx: cancer FHx: colon cancer Past Surgical History Surgical History History of revision of total knee arthroplasty Left total knee revision: 07/01/20: SAB at L3/L4 + PNB at [facility] History of total knee replacement Right TKA: 03/12/20: SAB at L3/L4 + PNB at [facility] Left TKA: 10/08/19: SAB x1 attempt at L3 + PNB at [facility] Hx of dilation and curettage Hx of laparoscopy Hx of sinus surgery Status post repair of complex wound Dog bite to face 2008, required sedation for suturing Social History Smoking Status: Never smoker Do You Dip or Chew Tobacco: No Hx Alcohol Use: No alcohol intake frequency: holidays/special occasions only Hx Substance Use: No substance use type: does not use Testing Laboratory Results 08/07/20 WBC 5.19 H/H 12.6/42.8 PLATELETS 255 SODIUM 142 POTASSIUM 4.3 CHLORIDE 104 CO2 25 BUN 18 CREATININE 0.9 GLUCOSE 155 07/01/20 PT 11.5 PTT 31.6 INR 1.1 TYPE AND SCREEN O+Ab- 06/27/20 HGA1C: 8.1% (surgeon's office made aware) Electrocardiogram Date: 09/11/19 Findings: + NSR @ (64bpm) Chest X-Ray Date: 09/11/19 Findings: + NAD
--- NOTE | 2020-09-02 18:10 | History & Physical Report ---
Date of Service September 02, 2020 Assessment & Plan (1) Infection of total left knee replacement: Treatment options discussed. She has completed course of antibiotics and has had no recurrent symptoms since discontinuing. Inflammatory markers are within normal ranges. Risks, benefits and alternatives to surgery including but not limited to infection, DVT, pain, stiffness, need for revision surgery, damage to blood vessels, damage to nerves, PE, , were discussed with the patient and they wish to proceed. Plan will be for left knee explant of antibiotic space and revision total knee arthroplasty. Will send frozen section at time of surgery. All questions answered. She will follow up post operatively. Will plan on aspirin 81mg BID for 1 mo post operatively for DVT prophylaxis. Encounter type: subsequent encounter Qualified Code(s): T84.54XD - Infection and inflammatory reaction due to internal left knee prosthesis, subsequent encounter (2) Status post total knee replacement, left: History of Present Illness Chief Complaint: Left knee pain Primary Care Provider: Marce Shine PA-C Patient is a 49 year old female with PMHx significant for IDDM, HTN, asthma, obesity, infected total knee arthroplasty who presents for revision surgery. She is 2 mos s/p left total knee arthroplasty I&D and conversion to antibiotic spacer. She has finished course of IV antibiotics and has normals inflammatory markers. She is scheduled for explant of antibiotic spacer and revision total knee arthroplasty. Patient denies headaches, sweats, fevers, chills, double vision, blurred vision, cough, sore throat, dysphagia, chest pain, sob, wheezing, n/v/d/c, numbness, tingling, fatigue, urinary symptoms, mood disorders. ROS positive for left knee pain. Allergies Allergy/AdvReac Type Severity Reaction Status Date / Time latex Allergy Intermediate Blistering Verified 08/22/20 10:31 ragweed pollen Allergy Mild Congestion Verified 08/22/20 10:31 pregabalin [From Lyrica] AdvReac Intermediate Agitation Verified 08/22/20 10:31 oxycodone AdvReac Vomiting, Verified 08/21/20 15:35 headache, constipation Home Medications Medication Instructions Recorded Confirmed Type Jardiance 25 mg PO QAM 09/03/19 08/21/20 History albuterol sulfate 2 inh INHALATION Q6H PRN 09/03/19 08/21/20 History bupropion HCl [Wellbutrin SR] 150 mg PO BID 09/03/19 08/21/20 History cholecalciferol (vitamin D3) 1,000 unit PO QAM 09/03/19 08/21/20 History [Vitamin D3] clonazepam [Klonopin] 1 mg PO QPM 09/03/19 08/21/20 History gabapentin See Rx Instructions .ROUTE .COMPLEX 09/03/19 08/21/20 History insulin aspart U-100 [Novolog 1 sliding scale dose SUBCUT 09/03/19 08/21/20 History U-100 Insulin aspart] USEASDIRECTD lidocaine 1 applic TOPICAL BID 09/03/19 08/21/20 History lisinopril [Zestril] 2.5 mg PO QPM 09/03/19 08/21/20 History loratadine [Claritin Liqui-Gel] 10 mg PO QAM 09/03/19 08/21/20 History multivitamin 1 tab PO QAM 09/03/19 08/21/20 History vitamin B complex 1 tab PO QAM 09/03/19 08/21/20 History vitamin E 100 unit PO QAM 09/03/19 08/21/20 History magnesium 250 mg PO BID 10/08/19 08/21/20 History celecoxib [Celebrex] 200 mg PO BID 30 Days #60 cap 10/10/19 08/21/20 Rx hydrocodone-acetaminophen [[place]] 1 - 2 tab PO Q4H PRN #30 tab 07/04/20 08/21/20 Rx ferrous sulfate 325 mg PO DAILY #30 tab 07/07/20 08/21/20 Rx Past Med/Surg History Medical History Anemia Asthma Bilateral polycystic ovarian syndrome Diabetes mellitus, type 2 IDDM (+ insulin pump) Diabetic neuropathy B/L feet + right ankle Dry eye syndrome HTN (hypertension) Obesity Osteoarthritis Seasonal allergies Surgical History History of revision of total knee arthroplasty Left total knee revision: 07/01/20: SAB at L3/L4 + PNB at [facility] History of total knee replacement Right TKA: 03/12/20: SAB at L3/L4 + PNB at [facility] Left TKA: 10/08/19: SAB x1 attempt at L3 + PNB at [facility] Hx of dilation and curettage Hx of laparoscopy Hx of sinus surgery Status post repair of complex wound Dog bite to face 2008, required sedation for suturing Family History Grandfather (Maternal) Family history of diabetes mellitus Mother Family history of diabetes mellitus Sister No problems noted. Other FHx: cancer FHx: colon cancer Social History Smoking Status: Never smoker Second Hand Exposure: No; Hx Alcohol Use: No Hx Substance Use: No Preferred Language: Setswana Communication Ability: Effective Supervisor [employer] Required: No Beliefs That Will Affect Care: None Current Living Situation: Significant Other Feels Safe at Home: Yes Assistive Devices: Walker Review of Systems All systems reviewed & are unremarkable except as noted in HPI & below Physical Exam Constitutional: well developed and well nourished; no acute distress Eyes: PERRL, conjunctivae normal, anicteric sclerae ENMT: external ear and nose normal, oropharynx normal Neck: trachea midline, no thyromegaly Respiratory: normal respiratory effort; no respiratory distress Cardiovascular: Rate/Rhythm: regular rate and regular rhythm Musculoskeletal: Left knee: Well healed surgical incision without erythema or drainage. Mild to moderate laxity noted with valgus and varus stress tests. ROM 0-90 degrees of flexion Skin: no rashes, warm and dry Neurologic: patellar DTR's 2+ bilat, sensation intact Psychiatric: A+Ox3, euthymic affect Results & Data ([facility]) Laboratory Results Lab Results 08/24/20 Range/Units 18:11 Blood Type O Positive Antibody Screen NEGATIVE Diagnostic Findings Left knee radiographs: X-rays of her left knee demonstrate she has a cement spacer, which is an articulated spacer with a cemented trial femoral component, cemented patella, and polyethylene tibial spacer. The antibiotic beads have since resorbed. Alignment is satisfactory on two views of the knee with a dot for templating purposes for revision. Opposite knee has a well-aligned total knee replacement. I do not seen any lucencies or loosening there.
[2020-09-03] MEDS ORDERED: GABAPENTIN 900 MG DOSE PO SCH (06:00)
[2020-09-03] MEDS ORDERED: CeleBREX 200 MG CAP PO SCH (06:00)
[2020-09-03] MEDS ORDERED: ACETAMINOPHEN 500 MG TAB PO SCH (06:00)
[2020-09-03] MEDS ORDERED: LR 500ML BOLUS, THEN 15ML/HR IV SCH (06:00)
[2020-09-03] MEDS ORDERED: FAMOTIDINE 20 MG TAB PO SCH (06:00)
[2020-09-03] MEDS ORDERED: TRANEXAMIC ACID 1,000 MG **IV Intra-op IV SCH (06:00)
[2020-09-03] MEDS ORDERED: METOCLOPRAMIDE HCL 10 MG TABLET PO SCH (06:00)
[2020-09-03] MEDS ORDERED: ROPIVACAINE 0.5% HCL/PF 150 MG, BUPIVACAINE 0.75% MPF 20 ML, EPINEPHrine 30MG/30ML (OR ... INSTIL SCH (06:00)
[2020-09-03] MEDS ORDERED: TRANEXAMIC ACID / 0.7% NACL 1,000 MG/100 ML BAG IV SCH (06:00)
[2020-09-03] MEDS ORDERED: VANCOMYCIN HCL 1,500 MG in SODIUM CHLORIDE 0.9% 500 ML IV SCH (06:00)
[2020-09-03] MEDS ORDERED: ceFAZolin 2000MG 2,000 MG/15 ML SYR IV SCH (06:00)
[2020-09-03] MEDS ORDERED: ROPIVACAINE 0.5% 5 MG/ML 30 ML VIAL ONE (06:27)
[2020-09-03] MEDS ORDERED: MIDAZOLAM HCL 1 MG/ML 2ML VIAL ONE ×2 (06:51→09:28)
[2020-09-03] MEDS ORDERED: BACITRACIN INJ 50,000 UNIT VIAL ONE ×2 (07:07→09:27)
[2020-09-03] MEDS ORDERED: KETOROLAC 30 MG/ML VIAL IV PRN (07:18)
[2020-09-03] MEDS ORDERED: HYDROmorphone INJ 1 MG/ML SYRINGE IV PRN (07:18)
[2020-09-03] MEDS ORDERED: ATROPINE SULFATE 0.1 MG/ML 10ML SYR IV PRN (07:18)
[2020-09-03] MEDS ORDERED: ONDANSETRON INJ 2 MG/ML 2 ML VIAL IV PRN ×2 (07:18→13:43)
[2020-09-03] MEDS ORDERED: BUPIVACAINE 0.5 % 5 MG/1 ML PF 10ML VIAL ONE (07:18)
[2020-09-03] MEDS ORDERED: ePHEDrine sulfate 50 MG/ML AMP IV PRN (07:18)
--- NOTE | 2020-09-03 07:22 | History & Physical Bridge Note ---
Date of Service September 03, 2020 History & Physical Bridge Note I have examined the patient, reviewed the History & Physical and in the interval since the performance of the History & Physical I have noted the following changes of clinical significance: no changes noted
[2020-09-03] MEDS ORDERED: PHENYLEPHRINE 100MCG/ML 5ML SYR ONE (07:53)
[2020-09-03] MEDS ORDERED: LIDOCAINE HCL 2% 2 ML VIAL/AMP(20MG/ML) INFIL ONE ×4 (07:53→10:33)
[2020-09-03] MEDS ORDERED: ePHEDrine sulfate 50 MG/ML SYR ONE (07:53)
[2020-09-03] MEDS ORDERED: SODIUM CHLORIDE 0.9% INJ 10 ML VIAL ONE (07:53)
[2020-09-03] MEDS ORDERED: PROPOFOL IV EMULSION 10 MG/ML 20 ML VIAL IV ONE ×8 (07:53→11:42)
[2020-09-03] MEDS ORDERED: fentaNYL citrate 100 MCG/2 ML VIAL ONE ×2 (09:46→11:55)
--- NOTE | 2020-09-03 12:22 | Post Operative Brief Note ---
Immediate Post Op Note v1 Date of Surgery September 03, 2020 Pre & Post Diagnosis Operation Date: 09/03/20 07:15 Pre-Op Diagnosis: Left Knee Infection Status Post Total Knee Arthroplasty and Placement of Cement Spacer Post-Op Diagnosis: Left Knee Infection Status Post Total Knee Arthroplasty and Placment of Cement Spacer I identified the patient and participated in the time-out.: Yes Procedure Operation Date: 09/03/20 07:15 Actual Procedures p Left Knee Revision Cement Spacer to Total Knee Arthroplasty (Left) - Antonino Kevin MD Surgeon Antonino Kevin MD Hospital Sales Representative Amandeep WADE Estimated Blood Loss 30 Findings Consistent with Post-Op Diagnosis Specimens Culture and frozen section Drains Hooper Catheter (latex-free) and Hemovac Drain Anesthesia Type MAC Spinal Regional Complications none Disposition Accompanied Patient To Recovery: No Disposition: Recovery Room Overlapping Procedure I was immediately available: during the entire case.
--- NOTE | 2020-09-03 13:03 | XRay Report ---
TWO VIEWS LEFT KNEE CLINICAL HISTORY: Left knee arthroplasty revision. Postoperative examination. FINDINGS: AP and crosstable lateral portable views of the left knee are obtained. A left knee arthrop lasty is in near anatomic alignment. There are long tibial and femoral stems. There has been undersur face remodeling of the patella. No acute fracture is seen. There are expected postoperative changes a round the knee including skin clips, a surgical drain, soft tissue edema, and subcutaneous gas. IMPRESSION: Expected postoperative changes status post left knee arthroplasty. No acute fracture is s een. ACT 112: Negative or not required by law. Electronically signed by: Hal Dietrich M.D. 09/03/2020 1:01 PM
--- NOTE | 2020-09-03 13:14 | Anesthesiology Progress Note ---
Date of Service September 03, 2020 Anesthesia Post Procedure Vital Signs Vital Signs: Temp Pulse Pulse Resp BP Pulse Ox 09/03/20 13:10 36.5 C 73 20 121/64 99 09/03/20 13:00 71 17 108/59 L 98 09/03/20 12:50 72 14 114/53 L 97 09/03/20 12:40 72 12 110/64 98 09/03/20 12:30 82 20 112/68 100 09/03/20 12:20 83 13 105/54 L 100 09/03/20 12:13 36.6 C 81 15 111/51 L 100 09/03/20 05:15 36.9 C 81 18 95/78 L 96 Transfer of Care Handoff Completed per policy Notes Mental Status: alert / awake / arousable Patient Amnestic to Procedure: Yes Nausea / Vomiting: adequately controlled Pain: adequately controlled Airway Patency, RR, SpO2: stable & adequate BP & HR: stable & adequate Hydration State: stable & adequate Anesthetic Complications: no major complications apparent
[2020-09-03] MEDS ORDERED: bisacodyL 10 MG SUPP PR PRN (13:43)
[2020-09-03] MEDS ORDERED: METOCLOPRAMIDE HCL INJ 5 MG/ML 2 ML VIAL IV PRN (13:43)
[2020-09-03] MEDS ORDERED: MAGNESIUM HYDROXIDE SUSP 30 ML UDC PO PRN (13:43)
[2020-09-03] MEDS ORDERED: HYDROmorphone INJ 0.5 MG/0.5 ML SYR IV PRN (13:43)
[2020-09-03] MEDS ORDERED: NALOXONE HCL 0.4 MG/1 ML VIAL/CARP IV PRN (13:43)
[2020-09-03] MEDS ORDERED: PHARMACY GLYCEMIC MGMT CONSULT PRN (14:20)
[2020-09-03] MEDS ORDERED: ALBUTEROL HFA 8 GM INHALER INH PRN (14:24)
[2020-09-03] MEDS: HYDROCODONE/ACETAMOPHEN 5/325MG TAB PO PRN ×3 (14:41→22:52)
[2020-09-03] MEDS: SODIUM CHLORIDE 0.9% 1000ML 1,000 ML IV SCH (14:41)
[2020-09-03] MEDS ORDERED: DEXTROSE 50% 50 ML SYRINGE IV PRN (14:45)
[2020-09-03] MEDS ORDERED: GLUCOSE 10 TABS/TUBE PO PRN (14:45)
[2020-09-03] MEDS ORDERED: INSULIN ASPART 100 UNITS/ML VIAL SC PRN (14:45)
[2020-09-03] MEDS ORDERED: CARBOHYDRATES FOR HYPOGLYCEMIA PO PRN (14:45)
[2020-09-03] MEDS ORDERED: GLUCAGON FOR INJ 1 MG VIAL SQ PRN (14:45)
[2020-09-03] MEDS ORDERED: GLUCOSE 40% GEL 15 GM TUBE PO PRN (14:45)
[2020-09-03] MEDS: NovoLOG INSULIN PUMP SCH ×3 (14:47→21:38)
--- NOTE | 2020-09-03 15:02 | Pharmacy Report ---
Pharmacy Glycemic Short Note 2 - Date of Service September 03, 2020 - Glycemic Short BSG Results (Last 24 hours): 09/03/20 09/03/20 05:30 12:20 POC Glucose 121 H 100 H OUTPATIENT ANTIDIABETIC REGIMEN: * Novolog pump, settings from previous admission are as follows: * Basal: 4284-3514: 1.3 unit/hr, 0182-6140: 1.5 unit/hr, ~32.8 units/day * Carb ratio: 1 unit per 4 grams of carb * Correction factor: 30 * BSG range: 130-160 mg/dL * Jardiance 25 mg PO daily * HbA1c: 6% (08/24/20) ASSESSMENT: * SN is a 49 year old female POD #0 s/p left knee revision * Received intra-articular orthomix containing dexamethasone * Postoperative BSG of 100 mg/dL * Patient has insulin pump supplies and plans to use while inpatient * Pharmacy also consulted in June, patient managed insulin pump at that time without issue PLAN FOR INPATIENT GLYCEMIC CONTROL: * Hold outpatient oral diabetes medications * Pt is to manage BSGs with insulin pump per outpatient settings. * RN will have patient read and sign agreement [id number] Insulin Pump Therapy Patient Agreement. * RN will provide and explain form [id number] Flowsheet for Patient * Patient will document their insulin dose given on [id number] which is kept at the bedside, available to caregivers upon request, and which becomes part of the permanent medical record. * If at any time the patients condition evidences that he/she is not able to manage the insulin pump (i.e. frequent hypo/hyperglycemia) Pharmacy will assume glycemic control by discontinuing the pump & managing with SQ basal bolus insulin regimen for the interim.
--- NOTE | 2020-09-03 15:05 | Consultation ---
Date of Consultation September 03, 2020 Assessment & Plan (1) Status post total knee replacement, left: hx of L TKA 09/2019 s/p infection requiring I & D, spacer placement and 6 wks of IV cefazolin 2/2 to [facility] now s/p L knee revision cement spacer to TKA by Dr. Kevin POD #0 ebl 30ml, hemovac - monitor tolerated procedure well pain/wound management per ortho activity and therapy as directed by ortho encourage incentive spirometry remove moreno cath as soon as able per orthopedics monitor h/h, pt with hx of post operative anemia (2) Diabetes mellitus, type 2: well controlled A1C 6.0 08/2020 continue insulin pump - managed by patient, pharmacy following peripherally (3) HTN (hypertension): hold lisinopril this evening, blood pressure 102/46 monitor (4) Diabetic neuropathy: continue gabapentin (5) Obesity: BMI 35.2 encourage lifestyle and diet modifications (6) DVT prophylaxis: ASA BID per ortho Disposition: per primary Follow up: PCP Dr. Mckinney upon discharge Pt was seen and examined in collaboration with Dr. Crandall, please see addendum Thank you for this consultation. We will follow the patient with you during their hospital stay. You can reach a [facility] via pager @ [phone]. Supervising Physician Co-Signing Physician Notes Pt was seen and examined. Agreed with Ela LOU exam, assessment and plan. 49-year-old female who has significant past medical history of T2DM insulin- dependent, diabetic neuropathy, HLD, HTN, asthma, dry eye syndrome, obesity, s/p LTKA on 10/08, who presents for elective revision of left total knee. S/P Left total knee infection, status post total knee arthroplasty followed by irrigation, debridement and placement of an articulated cement spacer with no signs of active inflammation or infection performed by Dr. Kevin today. No post op complication. Pain control as per ortho. Continue incentive spirometry. PT/OT evaluation as per ortho. Will monitor hemoglobin. Fall precaution. Will continue monitor during the hospital course. MD Karley History of Present Illness Requesting Physician: Dr. Kevin Reason for Consultation: Postop med management Attending Physician: Antonino Kevin MD History of Present Illness This is a 49-year-old female who has significant past medical history of T2DM insulin-dependent, diabetic neuropathy, HLD, HTN, asthma, dry eye syndrome, obesity who presents for elective revision of left total knee by Dr. Kevin. Patient initially had left TKA on 09/2019. She subsequently developed left knee infection requiring revision and I&D as well as 6 weeks of IV cefazolin. Cultures were positive for staph lugdunensis. Post operatively she is doing well, but is uncertain why she has moreno catheter. "I've never had this before." She monitors her BSG with CGM and has insulin pump. Last a1c was 6.0 08/2020. Most recent bsg was 93 and she is currently eating a sandwich. Denies f/c/s, dizziness, lightheaded, chest pain, sob, palpation, cough, n/v/d, abdominal pain. Denies difficulty with BM or urinating prior to procedure. She takes iron supplements and states she still moves bowels regulary. Allergies Allergy/AdvReac Type Severity Reaction Status Date / Time latex Allergy Intermediate Blistering Verified 09/03/20 05:29 ragweed pollen Allergy Mild Congestion Verified 09/03/20 05:29 pregabalin [From Lyrica] AdvReac Intermediate Agitation Verified 09/03/20 05:29 oxycodone AdvReac Vomiting, Verified 09/03/20 05:29 headache, constipation Home Medications Medication Instructions Recorded Confirmed Type Jardiance 25 mg PO QAM 09/03/19 09/03/20 History albuterol sulfate 2 inh INHALATION Q6H PRN 09/03/19 09/03/20 History bupropion HCl [Wellbutrin SR] 150 mg PO BID 09/03/19 09/03/20 History cholecalciferol (vitamin D3) 1,000 unit PO QAM 09/03/19 09/03/20 History [Vitamin D3] clonazepam [Klonopin] 1 mg PO QPM 09/03/19 09/03/20 History gabapentin See Rx Instructions .ROUTE .COMPLEX 09/03/19 09/03/20 History insulin aspart U-100 [Novolog 1 sliding scale dose SUBCUT 09/03/19 09/03/20 History U-100 Insulin aspart] USEASDIRECTD lidocaine 1 applic TOPICAL BID 09/03/19 09/03/20 History lisinopril [Zestril] 2.5 mg PO QPM 09/03/19 09/03/20 History loratadine [Claritin Liqui-Gel] 10 mg PO QAM 09/03/19 09/03/20 History multivitamin 1 tab PO QAM 09/03/19 09/03/20 History vitamin B complex 1 tab PO QAM 09/03/19 09/03/20 History vitamin E 100 unit PO QAM 09/03/19 09/03/20 History magnesium 250 mg PO BID 10/08/19 09/03/20 History celecoxib [Celebrex] 200 mg PO BID 30 Days #60 cap 10/10/19 09/03/20 Rx ferrous sulfate 325 mg PO DAILY #30 tab 07/07/20 09/03/20 Rx aspirin 81 mg PO BID #60 tab 09/04/20 Rx cefadroxil 500 mg PO BID #28 cap 09/04/20 Rx hydrocodone-acetaminophen [[place]] 1 - 2 tab PO .Q4h-6h PRN #30 tab 09/04/20 Rx MDD 6 Patient History Medical History (Updated 09/03/20 @ 15:06 by Ela Coe PA-C) Anemia Asthma Bilateral polycystic ovarian syndrome Diabetes mellitus, type 2 IDDM (+ insulin pump) Diabetic neuropathy B/L feet + right ankle Dry eye syndrome HTN (hypertension) Obesity Osteoarthritis Seasonal allergies Surgical History History of revision of total knee arthroplasty Left total knee revision: 07/01/20: SAB at L3/L4 + PNB at [facility] History of total knee replacement Right TKA: 03/12/20: SAB at L3/L4 + PNB at [facility] Left TKA: 10/08/19: SAB x1 attempt at L3 + PNB at [facility] Hx of dilation and curettage Hx of laparoscopy Hx of sinus surgery Status post repair of complex wound Dog bite to face 2008, required sedation for suturing Family History Grandfather (Maternal) Family history of diabetes mellitus Mother Family history of diabetes mellitus Sister No problems noted. Other FHx: cancer FHx: colon cancer Social History Smoking Status: Never smoker Second Hand Exposure: No; Do You Dip or Chew Tobacco: No; Hx Alcohol Use: No Hx Substance Use: No Preferred Language: Amharic Communication Ability: Effective Wind Project Manager Required: No Beliefs That Will Affect Care: None Current Living Situation: Significant Other Feels Safe at Home: Yes Safety Concerns: Feels Safe At This Time Assistive Devices: Walker Review of Systems Review of Systems: All systems reviewed & are unremarkable except as noted in HPI & below Physical Exam Physical Exam: Constitutional: WD/WN, vitals as above, NAD, sitting up in bed, pleasant, conversing easily Head: Normocephalic, Atraumatic Eyes: PERRL, conjunctivae normal, anicteric sclerae ENMT: external ear and nose normal, oropharynx normal Neck: trachea midline, no thyromegaly normal visual inspection Respiratory: normal respiratory effort, lungs clear to auscultation, no wheeze, rales, rhonchi. Normal insp/exp effort, no accessory muscle use Cardiovascular: RRR, no murmur, no edema Vessels: no JVD or carotid bruit Chest: normal inspection of chest Abdomen: normal bowel sounds, soft, nontender, no hepatosplenomegaly Musculoskeletal: no cyanosis or clubbing, active range of motion x4, left knee dressing CDI, Hemovac in place with serosanguineous drainage Skin: no rashes, warm and dry normal turgor Neurologic: PERRL, EOMI, accommodation nl, no face palsy, no dysarthria CN's II-XI intact bilaterally and moves all extremities Psychiatric: A+Ox3, euthymic affect Lymphatic: no cervical or axillary lymphadenopathy : deferred Results & Data ([facility]) Vital Signs (Past 12 Hours) Vital Signs Temp Pulse Pulse Resp BP Pulse Ox 09/03/20 14:51 20 102/46 L 97 09/03/20 14:10 36.4 C L 19 104/52 L 95 09/03/20 13:30 67 16 96/58 L 99 09/03/20 13:20 74 18 101/52 L 99 09/03/20 13:10 36.5 C 73 20 121/64 99 09/03/20 13:00 71 17 108/59 L 98 12/16/20 12:50 72 14 114/53 L 97 09/03/20 12:40 72 12 110/64 98 09/03/20 12:30 82 20 112/68 100 09/03/20 12:20 83 13 105/54 L 100 09/03/20 12:13 36.6 C 81 15 111/51 L 100 09/03/20 05:15 36.9 C 81 18 95/78 L 96 Laboratory Results Pre op labs 08/24/2020 H/H 14.1 and 45.6, plt 284, wbc 6.67k Na 135, K 4.5, 21/1.05 a1c 6.0 Diagnostic Findings Knee Xray: IMPRESSION: Expected postoperative changes status post left knee arthroplasty. No acute fracture is seen. Medications Administered Acetaminophen (Acetaminophen 500 Mg Tab) 1,000 mg PO PREOP LANDON Stop: 09/03/20 18:00 Last Admin: 09/03/20 06:05 Dose: 1,000 mg Documented by: [id number] Hydrocodone Bitart/Acetaminophen (Hydrocodone/Acetamophen 5/325mg Tab) 1 - 2 tab PO Q4H PRN PRN Reason: Pain or Pre PT Stop: 09/17/20 13:42 Last Admin: 09/03/20 14:41 Dose: 2 tab Documented by: [id number] Celecoxib (Celebrex 200 Mg Cap) 200 mg PO PREOP LANDON Stop: 09/03/20 18:00 Last Admin: 09/03/20 06:05 Dose: 200 mg Documented by: [id number] Famotidine (Famotidine 20 Mg Tab) 20 mg PO PREOP LANDON Stop: 09/03/20 18:00 Last Admin: 09/03/20 06:04 Dose: 20 mg Documented by: [id number] Gabapentin (Gabapentin 900 Mg Dose) 900 mg PO PREOP LANDON Stop: 09/03/20 18:00 Last Admin: 09/03/20 06:04 Dose: 900 mg Documented by: [id number] Cefazolin Sodium (Ancef 2000mg) 2,000 mg in 15 mls @ 3.75 mls/min IV PREOP LANDON; Protocol Stop: 09/03/20 18:00 Last Admin: 09/03/20 07:40 Dose: 3.75 mls/min Documented by: [id number] Vancomycin HCl 1,500 mg/ (Sodium Chloride) 530 mls @ 200 mls/hr IV PREOP LANDON Stop: 09/03/20 18:00 Last Infusion: 09/03/20 14:38 Dose: 0 mls/hr Documented by: [id number] Admin: 09/03/20 05:43 Dose: 200 mls/hr Documented by: [id number] Tranexamic Acid (Tranexamic Acid / 0.7% Nacl) 1,000 mg in 100 mls @ 600 mls/hr IV TODAY@0600 [facility] Stop: 09/03/20 18:00 Last Infusion: 09/03/20 07:32 Dose: 0 mls/hr Documented by: [id number] Admin: 09/03/20 07:22 Dose: 600 mls/hr Documented by: [id number] Tranexamic Acid (Tranexamic Acid / 0.7% Nacl) 1,000 mg in 100 mls @ 600 mls/hr IV TODAY@0600 [facility] Stop: 09/03/20 18:00 Last Infusion: 09/03/20 11:02 Dose: 0 mls/hr Documented by: [id number] Admin: 09/03/20 10:10 Dose: 600 mls/hr Documented by: [id number] Ropivacaine 150 mg/Bupivacaine HCl 20 ml/Epinephrine HCl 0.15 mg/Ketorolac Tromethamine 30 mg/Ketamine HCl 10 mg/ Clonidine HCl 100 mcg/ Sodium Chloride 82.35 mls @ 0 mls/hr INSTIL TODAY@0600 [facility]; Protocol Stop: 09/03/20 18:00 Last Admin: 09/03/20 10:59 Dose: 82.35 mls/hr Documented by: [id number] Lactated Ringer's (Lr) 1,000 mls @ 15 mls/hr IV .Q24H [facility] Stop: 09/03/20 18:00 Last Infusion: 09/03/20 07:40 Dose: 0 mls/hr Documented by: [id number] Admin: 09/03/20 05:42 Dose: 15 mls/hr Documented by: [id number] Sodium Chloride (Nss 1000ml) 1,000 mls @ 100 mls/hr IV .Q10H [facility] Stop: 10/03/20 13:42 Last Admin: 09/03/20 14:41 Dose: 100 mls/hr Documented by: [id number] Insulin Aspart (Novolog Insulin Pump) 1 ea N/A ACHS [facility]; Protocol Stop: 10/03/20 14:44 Last Admin: 09/03/20 14:47 Dose: 1 ea Documented by: [id number] Metoclopramide HCl (Metoclopramide Hcl 10 Mg Tablet) 10 mg PO PREOP LANDON Stop: 09/03/20 18:00 Last Admin: 09/03/20 06:05 Dose: 10 mg Documented by: [id number] Discontinued Medications Bacitracin (Bacitracin Inj 50,000 Unit Vial) Confirm Administered Dose 50,000 units .ROUTE .STK-MED ONE Stop: 09/03/20 07:08 Last Admin: 09/03/20 08:36 Dose: 50,000 units Documented by: [id number] Bacitracin (Bacitracin Inj 50,000 Unit Vial) Confirm Administered Dose 150,000 units .ROUTE .STMediCard-MED ONE Stop: 09/03/20 09:28 Last Admin: 09/03/20 11:35 Dose: 150,000 units Documented by: [id number] ECG Rate (beats per minute): 64 Rhythm: normal sinus
[2020-09-03] MEDS: GABAPENTIN 300 MG CAP PO SCH (16:44)
[2020-09-03] MEDS: ceFAZolin 2000MG 2,000 MG/15 ML SYR IV SCH (16:45)
[2020-09-03] MEDS ORDERED: lisinopril 2.5 MG TAB PO SCH (21:00)
[2020-09-03] MEDS ORDERED: clonazePAM 1 MG TAB PO SCH (21:00)
[2020-09-03] MEDS ORDERED: SENNA 8.6 MG TAB PO SCH (21:00)
[2020-09-03] MEDS ORDERED: NON-FORMULARY MEDICATION (Magnesium 250 mg Tablet) PO SCH (21:00)
[2020-09-03] MEDS ORDERED: GABAPENTIN 300 MG CAP PO SCH (21:00)
[2020-09-03] MEDS: CeleBREX 200 MG CAP PO SCH (21:24)
[2020-09-03] MEDS: ASPIRIN 81 MG ECTAB PO SCH (21:24)
[2020-09-03] MEDS: buPROPion SR 150 MG TABCR PO SCH (21:25)
[2020-09-03] MEDS: DOCUSATE SODIUM 100 MG CAP PO SCH (21:25)
[2020-09-03] MEDS: LIDOCAINE HCL 5% OINT 30 GM TUBE TOP SCH (22:53)
[2020-09-04] MEDS: ceFAZolin 2000MG 2,000 MG/15 ML SYR IV SCH (00:18)
[2020-09-04] MEDS: SODIUM CHLORIDE 0.9% 1000ML 1,000 ML IV SCH (00:18)
--- NOTE | 2020-09-04 00:54 | Operative Report (OR) ---
DATE OF OPERATION: 09/03/2020 INDICATION FOR PROCEDURE: The patient is a 49-year-old female who is an insulin-dependent diabetic who had a primary left total knee last year. She has some chronic synovitis which on further diagnostic testing was noted to be septic knee replacement. She had chronic infection with Staphylococcus lugdunensis. She required irrigation, debridement, explantation of the total knee replacement with placement of an articulated antibiotic cement spacer. She had a greater than 6 weeks of IV antibiotics and became symptomatically improved. Her blood tests corrected to within normal limits with regard to sed rate being normal and CRP just mildly elevated. She had no signs of infection and continued to be asymptomatic off antibiotics and the patient now presents for revision of the cement spacer to a revision knee replacement. PREOPERATIVE DIAGNOSIS: Left total knee infection, status post total knee arthroplasty followed by irrigation, debridement and placement of an articulated cement spacer. POSTOPERATIVE DIAGNOSIS: Left total knee infection, status post total knee arthroplasty followed by irrigation, debridement and placement of an articulated cement spacer with no signs of active inflammation or infection. PROCEDURE: Left knee revision of cement spacer to a left total knee arthroplasty with additional application of a superficial wound VAC. SURGEON: Antonino Kevin MD MUSEUM ASSISTANT: Mayur WADE. ESTIMATED BLOOD LOSS: 30 mL. FINDINGS: Consistent with postoperative diagnosis. SPECIMENS: Swab culture, joint fluid and frozen section, tibial bone interface area. DRAINS: Hooper catheter and Hemovac drain. ANESTHESIA: MAC spinal regional. COMPLICATIONS: None. DISPOSITION: Recovery room. OVERLAPPING PROCEDURE: None. OPERATIVE PROCEDURE: The patient was taken to the operating room, anesthetized under anesthesia as dictated. She was placed supine on the operating room table. Pneumatic tourniquet was placed on left upper thigh. She had moderate obesity of the thigh. She had full knee extension and there was flexion to 95 degrees. A small effusion and no erythema, no drainage. Some instability consistent with a spacer. The left lower extremity was prepped and draped with ChloraPrep in usual sterile fashion. She did have vancomycin and Ancef preop. The leg was elevated and exsanguinated with an Esmarch bandage and pneumatic tourniquet was raised to 325 mmHg. Previous scar was used for a longitudinal incision. Subcutaneous flaps were elevated. Incision was made through medial retinaculum up into the mid third of the quadriceps tendon and extended down to the medial tibial tubercle. She had very thick quadriceps tendon and thickened retinacular tissue, chronic scar tissue. Joint fluid was blood tinged hinged and no pus and this was cultured and Gram stain was negative organisms, few white blood cells. Then exposure was performed performing an electrocautery synovectomy. The scar tissue around the patellar component was resected. The spacer was exposed. The spacer components had to be removed using osteotomes, artist chisels and the [employer] Ultra-Drive to melt cement to free up the components. The components were more well fixed than anticipated, so this did take considerable time to remove the fixed spacer components. There was no real suspicious areas of infection underlying the components. We did sample some membrane that was below the tibial component and this came back at 3 white blood cells per high power field. At this time, we used the [employer] and [employer] revision knee replacement system. Attention was first taken to developing the intramedullary canals of the tibia and the femur. Reaming was performed in the femur and tibia up to a 14 canal diameter on the femur and a 12 on the tibia side with cortical chatter identified. Then attention was taken to the femur. The reamer was left in and the distal femoral freshen up cut device was placed just skimming the surface of the existing bone in order not to raise the joint line significantly. There was no major bone loss noted from the removal of the prior implant distally, but the posterior femoral condyle there was some bone loss there. The appropriate offset was then placed to size and setup the femoral cutting guide. The femur was sized for a 4. Suggested so that we did not notch anteriorly. The guide was lined up with the epicondylar access for appropriate external rotation. It was pinned in position and the anterior, posterior and chamfer cuts were made. Posteriorly, we had to do 5 mm augment cut medial and lateral. The intramedullary canal was drilled with the appropriate drills for the offset requirement for the stem. The alignment of the offset was documented and the trial femoral component was assembled. There was the 4 femur with a 160 degree stem at 14 canal diameter with a 4 stem offset direction at 10 o'clock with medial and lateral 5 mm augments. The notch cutting device was used and the trial was inserted with excellent fit. At this point, the tourniquet time was approaching 2 hours, so we had to put the trial on the tibia, leave the femoral component intact and then let the tourniquet down to permit the legtoi revascularize for 20 minutes. Then, the tourniquet was placed back up again and after copious irrigation with antibiotic solution with bacitracin, we continued to prepare the tibial side. Femoral trial was first removed and then the offset 6 mm was chosen for the tibia to get appropriate alignment of the tibial component and appropriate drills for the proximal aspect of the tibial implant and offset were used. The fins were cut with the fin cutting device and on the medial side, there was a sclerotic area that had to use the oscillating saw to cut the bone, so we would not fracture the sclerotic medial side. There was also a large cyst with the bone was eroded from the previous infection that was noted at the previous operation and the sclerotic bone was curetted to assure no membrane was noted over it. The tibial trial was then assembled, which was the 12 mm stem, size 3 tibia with a 6 mm offset at the 7:30 position. The trial fit well. Then we did a trial reduction with the trial polyethylene and I felt I needed a constrained polyethylene to have some mid flexion laxity of the MCL so the 18 mm constrained poly was utilized and this gave full range of motion with stability with her maximum range of motion being about 115 degrees flexion and full extension. The patella component was previously removed using an osteotome followed by recutting a skim cut on the surface just removed the cement and the cement was removed from the previous cement plugs on the patella using an angled curette and these were all curetted out. There were no signs of infection on the patella area. This was copiously irrigated and the Legion 32 symmetrical patella was utilized and new set of drill holes were placed for this trial and the trial was placed and then we assessed patellar tracking with 1 towel clip in the VMO to reapproximate the soft tissues and the patella tracked centrally. The trials were all removed and more antibiotic solution was used to copiously irrigate the knee. Prior to insertion of the knee, we irrigated with at least 10 liters of antibiotic solution with bacitracin. All bony surfaces were dried and prepared for cementing. The final components were assembled. The tibial component were first cemented and then followed by the femoral component and then followed by the patellar component. We used Simplex tobramycin cement for the tibia and the femur and Palacos G for the patella. With the cementing techniques, the cone of cement was placed around the proximal aspect of the implant and the stems were press fit proximally and distally and surfaces were cemented and cement was placed on the back of both of the tibial and femoral implants. All excess cement was cleared and the knee was placed in full extension until the cement cured and the patellar clamp was used on the patella. The final components were the Legion size 4 left femur with 5 mm posterior augments, medial and lateral 160 mm length stem with 14 diameter on the femoral side and the 3 tibia with a 12 stem and 160 mm length stem with a 6 mm offset set at 7:30 position on the tibia. We used 18 mm constrained Legion polyethylene tibial bearing and the 32 symmetrical patella. After the cement cured, we soaked the knee with Betadine soak for 3 minutes and then irrigated out the knee again with more antibiotic solution with bacitracin and closed the knee over 2 Hemovac drains with interrupted [id number] #1 Vicryl bacterial resistant suture material and after further irrigation, the subcutaneous tissues, the subcutaneous tissue was closed with interrupted 2-0 Vicryl bacterial resistant suture material and the skin was then closed with pat and a superficial wound VAC was applied. Mayur Villalba was my physician acute care assistant. He assisted in patient positioning, prepping, draping, leg positioning, soft tissue retraction, assisted in the subcutaneous and skin closure, application of a superficial wound VAC and will participate in postoperative care of the patient. I attest to the content of the Intraoperative Record and any orders documented therein. Any exceptions are noted below. JUSTEN
[2020-09-04] MEDS: HYDROCODONE/ACETAMOPHEN 5/325MG TAB PO PRN ×2 (05:30→15:07)
[2020-09-04 06:35] LABS: Hematocrit (blood only) 37.9 % (37-47); Hemoglobin 11.7 g/dL (12.0-16.0); Mean Corpuscular Hemoglobin 26.1 pg (25-34); Mean Corpuscular Hgb Conc 30.9 g/dL (32-36); Mean Corpuscular Volume 84.6 fL (80-100); Mean Platelet Volume 9.4 fL (7.4-10.4); Platelet Count 204 K/uL (130-400); RDW Coefficient of Variation 19.4 % (11.5-14.5); RDW Standard Deviation 59.6 fL (36.4-46.3); Red Blood Count 4.48 M/uL (4.2-5.4); White Blood Count 5.34 K/uL (4.8-10.8)
[2020-09-04 07:03] LABS: BUN Creatinine Ratio 17.3 (10-20); Calcium 8.4 mg/dl (8.5-10.1); Creatinine Clr Calc Pharmacy 75.9 ml/min; Est GFR (Non-African American) 62.2; Potassium 4.3 mmol/L (3.5-5.1)
[2020-09-04] MEDS: LIDOCAINE HCL 5% OINT 30 GM TUBE TOP SCH (08:29)
[2020-09-04] MEDS: NovoLOG INSULIN PUMP SCH ×2 (08:29→13:11)
[2020-09-04] MEDS: DOCUSATE SODIUM 100 MG CAP PO SCH (08:31)
[2020-09-04] MEDS: CeleBREX 200 MG CAP PO SCH (08:31)
[2020-09-04] MEDS: buPROPion SR 150 MG TABCR PO SCH (08:31)
[2020-09-04] MEDS: ASPIRIN 81 MG ECTAB PO SCH (08:31)
--- NOTE | 2020-09-04 08:32 | Orthopedic Progress Note ---
Date of Service September 04, 2020 Assessment & Plan (1) Status post total knee replacement, left: POD#1 Conversion antibiotic spacer to revision total knee arthroplasty, left knee -PT/OT -Pain management -DVT prophylaxis-SCDs, TEDs, ASA 81mg BID x 1 mo -AM labs-hemoglobin 11.7, acute blood loss anemia, likely due to surgical loss vs dilutional effect -D/c planning-home with HHPT vs OPPT, possibly later today vs tomorrow. Admission and Anticipated Discharge Date Admission Date: September 03, 2020 Subjective Patient is POD#1 left revision TKA. She is doing well, pain well controlled, ambulating well. No complaints. Denies chest pain, sob, dizziness, n/v/d Review of Systems Review of Systems: All systems reviewed & are unremarkable except as noted in HPI & below Physical Exam Physical Exam: Left knee dressing is c/d/i, JULIÁN in place. Hemovac suctioning. No calf tenderness. Sensation distally is intact, n/v status in tact. Good dorsiflexion Constitutional: well developed and well nourished Results & Data ([facility]) Vital Signs (Past 12 Hours) Vital Signs Temp Pulse Resp BP Pulse Ox 09/04/20 07:30 36.7 C 72 20 110/67 96 09/04/20 06:30 111/66 09/04/20 04:05 36.7 C 76 18 99/64 L 95 09/03/20 23:07 36.5 C 85 16 106/66 99
[2020-09-04] MEDS: GABAPENTIN 300 MG CAP PO SCH (08:36)
[2020-09-04] MEDS ORDERED: VITAMIN B COMPLEX TAB PO SCH (09:00)
[2020-09-04] MEDS ORDERED: CHOLECALCIFEROL 1,000 UNITS 25 MCG TAB PO SCH (09:00)
[2020-09-04] MEDS ORDERED: TOCOPHERYL, DL-ALPHA 100 UNITS CAP PO SCH (09:00)
[2020-09-04] MEDS ORDERED: FERROUS SULFATE 325 MG TAB PO SCH (09:00)
[2020-09-04] MEDS ORDERED: MULTIVITAMIN TAB PO SCH ×2 (09:00)
[2020-09-04] MEDS ORDERED: LORATADINE 10 MG TAB PO SCH (09:00)
--- NOTE | 2020-09-04 10:00 | Hospitalist Progress Note ---
Date of Service September 04, 2020 Assessment & Plan (1) Status post total knee replacement, left: hx of L TKA 09/2019 s/p infection requiring I & D, spacer placement and 6 wks of IV cefazolin 2/2 to [facility] Tonyis now s/p L knee revision cement spacer to TKA by Dr. Kevin POD #1 tolerated procedure well pain/wound management per ortho activity and therapy as directed by ortho encourage incentive spirometry remove moreno cath as soon as able per orthopedics monitor h/h, pt with hx of post operative anemia Acute blood loss anemia pre op Hgb 14.1, now down to 11.7, expected, no need for blood transfusion (2) Diabetes mellitus, type 2: well controlled A1C 6.0 08/2020 continue insulin pump - managed by patient, pharmacy following peripherally (3) HTN (hypertension): hold lisinopril for now, plan to resume on dc monitor BP while inpt (4) Diabetic neuropathy: continue gabapentin (5) Obesity: BMI 35.2 encourage lifestyle and diet modifications (6) DVT prophylaxis: ASA BID per ortho Disposition: per primary Follow up: PCP Dr. Mckinney upon discharge Thank you for this consultation. We will follow the patient with you during their hospital stay. You can reach a [facility]04 via pager @ . Admission and Anticipated Discharge Date Admission Date: September 03, 2020 Subjective Patient is POD#1 left revision TKA. Pt is laying in bed, in NAD. Pain well controlled, reports ambulating well. Denies chest pain, sob, dizziness, n/v/d Hgb down to 11.7, drain placed. Review of Systems Review of Systems: All systems reviewed & are unremarkable except as noted in HPI & below Constitutional: no fever and no chills Respiratory: no cough and no dyspnea Cardiovascular: no chest pain and no palpitations Gastrointestinal: no abdominal pain, no nausea and no vomiting Physical Exam Physical Exam: Constitutional: WD/WN, vitals as above, NAD, sitting up in bed, pleasant, conversing easily Head: Normocephalic, Atraumatic Eyes: PERRL, conjunctivae normal, anicteric sclerae ENMT: external ear and nose normal, oropharynx normal Neck: trachea midline, no thyromegaly normal visual inspection Respiratory: normal respiratory effort, lungs clear to auscultation, no wheeze, rales, rhonchi. Normal insp/exp effort, no accessory muscle use Cardiovascular: RRR, no murmur, no edema Vessels: no JVD or carotid bruit Chest: normal inspection of chest Abdomen: normal bowel sounds, soft, nontender Musculoskeletal: no cyanosis or clubbing, active range of motion x4, left knee dressing CDI, Hemovac in place with serosanguineous drainage Skin: no rashes, warm and dry normal turgor Neurologic: PERRL, EOMI, no face palsy, no dysarthria CN's II-XI intact bilaterally and moves all extremities Psychiatric: A+Ox3, euthymic affect Results & Data Results & Data ([facility]) Vital Signs (Past 12 Hours) Vital Signs Temp Pulse Resp BP Pulse Ox 09/04/20 07:30 36.7 C 72 20 110/67 96 09/04/20 06:30 111/66 09/04/20 04:05 36.7 C 76 18 99/64 L 95 09/03/20 23:07 36.5 C 85 16 106/66 99 Laboratory Results 09/04/20 09/04/20 09/03/20 Range/Units 05:56 05:56 20:39 WBC 5.34 (4.8-10.8) K/uL RBC 4.48 (4.2-5.4) M/uL Hgb 11.7 L (12.0-16.0) g/dL Hct 37.9 (37-47) % MCV 84.6 (80-100) fL MCH 26.1 (25-34) pg MCHC 30.9 L (32-36) g/dL RDW Std Deviation 59.6 H (36.4-46.3) fL RDW Coeff of Gareth 19.4 H (11.5-14.5) % Plt Count 204 (130-400) K/uL MPV 9.4 (7.4-10.4) fL Sodium 141 (136-145) mmol/L Potassium 4.3 (3.5-5.1) mmol/L Chloride 108 H (98-107) mmol/L Carbon Dioxide 29 (21-32) mmol/L Anion Gap 4.0 (3-11) BUN 18 (7-18) mg/dl Creatinine 1.04 (0.6-1.2) mg/dl Est Cr Clr Drug Dosing 75.9 ml/min Est GFR ( Amer) 72.0 Est GFR (Non-Af Amer) 62.2 BUN/Creatinine Ratio 17.3 (10-20) Glucose 74 (70-99) mg/dl POC Glucose 115 H (70-99) mg/dl Calcium 8.4 L (8.5-10.1) mg/dl 09/03/20 Range/Units 12:20 WBC (4.8-10.8) K/uL RBC (4.2-5.4) M/uL Hgb (12.0-16.0) g/dL Hct (37-47) % MCV (80-100) fL MCH (25-34) pg MCHC (32-36) g/dL RDW Std Deviation (36.4-46.3) fL RDW Coeff of Gareth (11.5-14.5) % Plt Count (130-400) K/uL MPV (7.4-10.4) fL Sodium (136-145) mmol/L Potassium (3.5-5.1) mmol/L Chloride (98-107) mmol/L Carbon Dioxide (21-32) mmol/L Anion Gap (3-11) BUN (7-18) mg/dl Creatinine (0.6-1.2) mg/dl Est Cr Clr Drug Dosing ml/min Est GFR ( Amer) Est GFR (Non-Af Amer) BUN/Creatinine Ratio (10-20) Glucose (70-99) mg/dl POC Glucose 100 H (70-99) mg/dl Calcium (8.5-10.1) mg/dl Medications Administered Current Inpatient Medications Hydrocodone Bitart/Acetaminophen (Hydrocodone/Acetamophen 5/325mg Tab) 1 - 2 tab PO Q4H PRN PRN Reason: Pain or Pre PT Stop: 09/17/20 13:42 Last Admin: 09/04/20 05:30 Dose: 2 tab Documented by: Albuterol (Albuterol Hfa 8 Gm Inhaler) 2 puffs INH Q6H PRN PRN Reason: Shortness Of Breath Stop: 10/03/20 14:23 Aspirin (Aspirin 81 Mg Ectab) 81 mg PO BID [facility] Stop: 10/03/20 20:59 Last Admin: 09/04/20 08:31 Dose: 81 mg Documented by: Bisacodyl (Bisacodyl 10 Mg Supp) 10 mg UT DAILY PRN PRN Reason: Constipation Stop: 10/03/20 13:42 Bupropion HCl (Bupropion Sr 150 Mg Tabcr) 150 mg PO BID [facility] Stop: 10/03/20 20:59 Last Admin: 09/04/20 08:31 Dose: 150 mg Documented by: Celecoxib (Celebrex 200 Mg Cap) 200 mg PO BID [facility] Stop: 10/03/20 20:59 Last Admin: 09/04/20 08:31 Dose: 200 mg Documented by: Clonazepam (Clonazepam 1 Mg Tab) 1 mg PO QPM [facility] Stop: 10/03/20 20:59 Last Admin: 09/03/20 21:32 Dose: 1 mg Documented by: Dextrose (Dextrose 50% 50 Ml Syringe) 25 - 50 ml IV UD PRN; Protocol PRN Reason: Hypoglycemia Protocol Stop: 10/03/20 14:44 Docusate Sodium (Docusate Sodium 100 Mg Cap) 100 mg PO BID [facility] Stop: 10/03/20 20:59 Last Admin: 09/04/20 08:31 Dose: 100 mg Documented by: Ferrous Sulfate (Ferrous Sulfate 325 Mg Tab) 325 mg PO DAILY [facility] Stop: 10/04/20 08:59 Last Admin: 09/04/20 08:30 Dose: 325 mg Documented by: Gabapentin (Gabapentin 300 Mg Cap) 300 mg PO BID@0900,1630 [facility] Stop: 10/03/20 16:29 Last Admin: 09/04/20 08:36 Dose: Not Given Documented by: Gabapentin (Gabapentin 300 Mg Cap) 600 mg PO HS [facility] Stop: 10/03/20 20:59 Last Admin: 09/03/20 21:24 Dose: 600 mg Documented by: Glucagon (Glucagon For Inj 1 Mg Vial) 1 mg SQ UD PRN; Protocol PRN Reason: Hypoglycemia Protocol Stop: 10/03/20 14:44 Glucose (Glucose 40% Gel 15 Gm Tube) 15 - 30 gm PO UD PRN; Protocol PRN Reason: Hypoglycemia Protocol Stop: 10/03/20 14:44 Glucose (Glucose 10 Tabs/Tube) 4 - 8 tabs PO UD PRN; Protocol PRN Reason: Hypoglycemia Protocol Stop: 10/03/20 14:44 Hydromorphone HCl (Hydromorphone Inj 0.5 Mg/0.5 Ml Syr) 0.5 mg IV Q4H PRN PRN Reason: Pain or Pre PT Stop: 09/17/20 13:42 Insulin Aspart (Novolog Insulin Pump) 1 ea N/A ACHS [facility]; Protocol Stop: 10/03/20 14:44 Last Admin: 09/04/20 08:29 Dose: 1 ea Documented by: Insulin Aspart (Insulin Aspart 100 Units/Ml Vial) 0 units SC PRN PRN PRN Reason: REFILL Stop: 10/03/20 14:44 Lidocaine (Lidocaine Hcl 5% Oint 30 Gm Tube) 1 appln TOP BID [facility] Stop: 10/03/20 21:59 Last Admin: 09/04/20 08:29 Dose: 1 appln Documented by: Lisinopril (Lisinopril 2.5 Mg Tab) 2.5 mg PO QPM [facility] Stop: 10/03/20 20:59 Loratadine (Loratadine 10 Mg Tab) 10 mg PO QAM [facility] Stop: 10/04/20 08:59 Last Admin: 09/04/20 08:30 Dose: 10 mg Documented by: Magnesium Hydroxide (Magnesium Hydroxide Susp 30 Ml Udc) 30 ml PO Q6H PRN PRN Reason: Constipation Stop: 10/03/20 13:42 Metoclopramide HCl (Metoclopramide Hcl Inj 5 Mg/Ml 2 Ml Vial) 10 mg IV Q6H PRN PRN Reason: Nausea And Vomiting Stop: 10/03/20 13:42 Miscellaneous (Carbohydrates For Hypoglycemia ) 15 - 30 gm PO UD PRN PRN Reason: Hypoglycemia Treatment Stop: 10/03/20 14:44 Miscellaneous Information (Pharmacy Glycemic Mgmt Consult) 1 ea N/A UD PRN PRN Reason: Consult Stop: 10/03/20 14:19 Multivitamins (Multivitamin Tab) 1 tab PO [facility] Stop: 10/04/20 08:59 Last Admin: 09/04/20 08:30 Dose: 1 tab Documented by: Naloxone HCl (Naloxone Hcl 0.4 Mg/1 Ml Vial/Carp) 0.1 mg IV Q5M PRN PRN Reason: Oversedation/Resp Depression Stop: 10/03/20 13:42 Ondansetron HCl (Ondansetron Inj 2 Mg/Ml 2 Ml Vial) 4 mg IV Q6H PRN PRN Reason: Nausea And Vomiting Stop: 10/03/20 13:42 Sennosides (Senna 8.6 Mg Tab) 17.2 mg PO [facility] Stop: 10/03/20 20:59 Last Admin: 09/03/20 21:24 Dose: 17.2 mg Documented by: Vitamin B Complex (Vitamin B Complex Tab) 1 tab PO [facility] Stop: 10/04/20 08:59 Last Admin: 09/04/20 08:30 Dose: 1 tab Documented by: Vitamin D (Cholecalciferol 1,000 Units 25 Mcg Tab) 1,000 units PO [facility] Stop: 10/04/20 08:59 Last Admin: 09/04/20 08:30 Dose: 1,000 units Documented by: Vitamin E (Tocopheryl, Dl-Alpha 100 Units Cap) 100 units PO [facility] Stop: 10/04/20 08:59 Last Admin: 09/04/20 08:31 Dose: 100 units Documented by:
--- NOTE | 2020-09-06 08:01 | Discharge Summary ---
Date of Service September 06, 2020 Admission HPI Per Admitting Provider Patient is a 49 year old female with PMHx significant for IDDM, HTN, asthma, obesity, infected total knee arthroplasty who presents for revision surgery. She is 2 mos s/p left total knee arthroplasty I&D and conversion to antibiotic spacer. She has finished course of IV antibiotics and has normals inflammatory markers. She is scheduled for explant of antibiotic spacer and revision total knee arthroplasty. Patient denies headaches, sweats, fevers, chills, double vision, blurred vision, cough, sore throat, dysphagia, chest pain, sob, wheezing, n/v/d/c, numbness, tingling, fatigue, urinary symptoms, mood disorde rs. ROS positive for left knee pain. Admission Exam Per Admitting Provider Constitutional: well developed and well nourished; no acute distress Eyes: PERRL, conjunctivae normal, anicteric sclerae ENMT: external ear and nose normal, oropharynx normal Neck: trachea midline, no thyromegaly Respiratory: normal respiratory effort; no respiratory distress Cardiovascular: Rate/Rhythm: regular rate and regular rhythm Musculoskeletal: Left knee: Well healed surgical incision without erythema or drainage. Mild to moderate laxity noted with valgus and varus stress tests. ROM 0-90 degrees of flexion Skin: no rashes, warm and dry Neurologic: patellar DTR's 2+ bilat, sensation intact Psychiatric: A+Ox3, euthymic affect Principal Diagnosis Infected left total knee arthroplasty s/p placement of antibiotic spacer Discharge Exam Constitutional well developed and well nourished Eyes PERRL, conjunctivae normal, anicteric sclerae ENMT external ear and nose normal, oropharynx normal Neck trachea midline, no thyromegaly Respiratory normal respiratory effort; no respiratory distress Cardiovascular Rate/Rhythm: regular rate and regular rhythm Skin no rashes, warm and dry Neurologic patellar DTR's 2+ bilat, sensation intact Psychiatric A+Ox3, euthymic affect Discharge Data Allergies Allergy/AdvReac Type Severity Reaction Status Date / Time latex Allergy Intermediate Blistering Verified 09/03/20 05:29 ragweed pollen Allergy Mild Congestion Verified 09/03/20 05:29 pregabalin [From Lyrica] AdvReac Intermediate Agitation Verified 09/03/20 05:29 oxycodone AdvReac Vomiting, Verified 12/16/20 05:29 headache, constipation Consultations 09/01/20 14:31 Consult Hospitalist Routine 09/03/20 13:43 Consult Case Management - Discharge Planning Routine Procedures Performed Operation Date: 09/03/20 07:15 Actual Procedures p Left Knee Revision Cement Spacer to Total Knee Arthroplasty (Left) - Antonino Kevin MD Ordered Studies 09/03/20 05:00 US - OR guided needle placemen Routine Hospital Course (1) Status post total knee replacement, left: Patient presented for same day admission following left revision total knee arthroplasty on 09/03/20. She tolerated procedure well. The Patient had an uneventful hospital course. Post-operatively, her activity was progressed and well tolerated. They participated in PT with ambulation distance of 100 feet. ROM of operative knee reached 65 degrees. Labs remained stable- lowest hemoglobin recorded: 11.7. Dr. Elo Crandall of medical service was consulted for medical management during admission. Pain controlled on oral medications. Please refer to daily progress notes and PT notes for complete details. After exam on 09/04/20, patient was felt to be stable for discharge home. Patient will f/u in the office in about 2 weeks for further evaluation including x-rays and incision check, sooner if having any issues or concerns. Will discharge on oral antibiotics for a least 2 weeks. POD#1 Conversion antibiotic spacer to revision total knee arthroplasty, left knee -PT/OT -Pain management -DVT prophylaxis-SCDs, TEDs, ASA 81mg BID x 1 mo -AM labs-hemoglobin 11.7, acute blood loss anemia, likely due to surgical loss vs dilutional effect -D/c planning-home with HHPT vs OPPT, possibly later today vs tomorrow. Lab Results 08/24/20 09/03/20 09/03/20 Range/Units 18:11 05:30 12:20 WBC (4.8-10.8) K/uL RBC (4.2-5.4) M/uL Hgb (12.0-16.0) g/dL Hct (37-47) % MCV (80-100) fL MCH (25-34) pg MCHC (32-36) g/dL RDW Std Deviation (36.4-46.3) fL RDW Coeff of Gareth (11.5-14.5) % Plt Count (130-400) K/uL MPV (7.4-10.4) fL Sodium (136-145) mmol/L Potassium (3.5-5.1) mmol/L Chloride (98-107) mmol/L Carbon Dioxide (21-32) mmol/L Anion Gap (3-11) BUN (7-18) mg/dl Creatinine (0.6-1.2) mg/dl Est Cr Clr Drug Dosing ml/min Est GFR ( Amer) Est GFR (Non-Af Amer) BUN/Creatinine Ratio (10-20) Glucose (70-99) mg/dl POC Glucose 121 H 100 H (70-99) mg/dl Calcium (8.5-10.1) mg/dl Blood Type O Positive Antibody Screen NEGATIVE 09/03/20 09/04/20 09/04/20 Range/Units 20:39 05:56 05:56 WBC 5.34 (4.8-10.8) K/uL RBC 4.48 (4.2-5.4) M/uL Hgb 11.7 L (12.0-16.0) g/dL Hct 37.9 (37-47) % MCV 84.6 (80-100) fL MCH 26.1 (25-34) pg MCHC 30.9 L (32-36) g/dL RDW Std Deviation 59.6 H (36.4-46.3) fL RDW Coeff of Gareth 19.4 H (11.5-14.5) % Plt Count 204 (130-400) K/uL MPV 9.4 (7.4-10.4) fL Sodium 141 (136-145) mmol/L Potassium 4.3 (3.5-5.1) mmol/L Chloride 108 H (98-107) mmol/L Carbon Dioxide 29 (21-32) mmol/L Anion Gap 4.0 (3-11) BUN 18 (7-18) mg/dl Creatinine 1.04 (0.6-1.2) mg/dl Est Cr Clr Drug Dosing 75.9 ml/min Est GFR ( Amer) 72.0 Est GFR (Non-Af Amer) 62.2 BUN/Creatinine Ratio 17.3 (10-20) Glucose 74 (70-99) mg/dl POC Glucose 115 H (70-99) mg/dl Calcium 8.4 L (8.5-10.1) mg/dl Blood Type Antibody Screen Total Time Total Time Spent Total Time Spent (In Minutes): 20 Discharge Plan Discharge Items Patient Disposition: Home - Self-Care Reason For Visit: Left Knee Infection Status Post Total Knee Arthrop Discharge Diagnosis: left knee revision total knee arthroplasty Activity: Per Instructions section Non-emergency contact: Surgeon Call non-emergency contact if: you have any medication questions, your pain is not controlled, your pain is worsening, your pain is concerning for you, you have a fever, your temperature is above 101, your wound has increased redness and your wound has increased drainage Follow-up/Referrals: Marce Shine PA-C [Primary Care Provider] - Diet: Regular Addtl Attending Provider Instructions: ACTIVITY RECOMMENDATIONS: SELF CARE INSTRUCTIONS AFTER TOTAL KNEE REPLACEMENT A. You may need to continue a physical therapy program after discharge from the hospital. There are several options available to you. Your doctor will assist you in selecting the best one for you. 1. An out-patient facility 2 to 3 times a week for therapy or home therapy. 2. Continue working on all exercises taught to you in the hospital. Your goals should be to increase bending of your knee to 90 degrees and beyond and to fully straighten your knee. B. You may progress at your own pace from walking with a walker or crutches to a cane; then to no assistive devices. C. Make walking a part of your daily routine. Be up as much as comfortable with rest periods throughout the day. Rest with leg elevation is very important. Use the ice wrap frequently for the first 3-4 weeks. D. There are no restrictions on activities. You may ride in a car, shop, participate in grease monkey and all social activities. E. Wear the long elastic stockings (MEMO hose) 20 hours a day for 2 weeks after surgery. They can be removed several times a day for laundering and for a bath. F. You may shower, no tub baths until cleared by your doctor. SPECIAL CARE INSTRUCTIONS: VERY IMPORTANT TO READ AND REVIEW A. There are a few signs you need to watch for after you are home. Call [facility] if you notice any of the followin. Increased severe knee pain. Some pain is expected especially when you exercise. 2. Increased swelling in your leg or knee; pain or swelling of the calf muscle in either lower leg. 3. Any fluid drainage from the incision. 4. Shortness of breath or chest pain. B. Please call [facility] at if you have any concerns or questions about your operation or recovery. The doctor or his nurse will return your call promptly. C. You must take antibiotics before dental work, bladder, bowel or other surgery. Your doctor will provide you with a permanent care to carry describing this precaution. IMPORTANT: * REMEMBER TO TAKE ASPIRIN, 81 MG, TWICE DAILY FOR 4 WEEKS UNLESS OTHERWISE DIRECTED. THIS IS YOUR BLOOD THINNER. * HIGH RISK PATIENTS MAY BE PRESCRIBED A STRONGER BLOOD THINNER. THIS WILL BE PROVIDED AT DISCHARGE. * CALL IF INCREASED PAIN, REDNESS, DRAINAGE OR FEVER GREATER THAT 101. * WEAR MEMO HOSE 20 HOURS PER DAY FOR 2 WEEKS. This is a large suction dressing covering your incision. This will help pull any excess drainage from the wound and allow your incision to heal properly. You may shower with this if you can keep the unit outside of the shower. If any bleeding or leakage is noted please call your doctor's office. This will remain on your incision for 7 days and then should be removed. This can be done yourself or by the home nursing staff if applicable. The entire unit is disposable once removed. Once removed, keep incision clean and dry. If redness or drainage is noted, please call your surgeon. FOLLOW UP VISIT: If appointment is not already scheduled: Please call [facility] to make a follow-up appointment for 2 weeks after your surgery at . Stand-Alone Forms: [employer], Smoking Cessation Medications and DC Order Prescriptions: New hydrocodone-acetaminophen [Bend] 5-325 mg Tablet 1 - 2 tab PO .Q4h-6h MDD 6 PRN (Reason: pain) Qty: 30 RF: 0 aspirin 81 mg Tablet,Delayed Release (Dr/Ec) 81 mg PO BID Qty: 60 RF: 0 cefadroxil 500 mg capsule 500 mg PO BID Qty: 28 RF: 1 Continued multivitamin Tablet 1 tab PO QAM RF: 0 bupropion HCl [Wellbutrin SR] 150 mg Tablet Sustained-Release 12 Hr 150 mg PO BID RF: 0 vitamin E 100 unit Capsule 100 unit PO QAM RF: 0 clonazepam [Klonopin] 1 mg Tablet 1 mg PO QPM RF: 0 insulin aspart U-100 [Novolog U-100 Insulin aspart] 100 unit/mL Solution 1 sliding scale dose SUBCUT USEASDIRECTD RF: 0 gabapentin 300 mg Capsule See Rx Instructions .ROUTE .COMPLEX RF: 0 vitamin B complex Tablet 1 tab PO QAM RF: 0 lisinopril [Zestril] 2.5 mg Tablet 2.5 mg PO QPM RF: 0 cholecalciferol (vitamin D3) [Vitamin D3] 25 mcg (1,000 unit) Capsule 1,000 unit PO QAM RF: 0 loratadine [Claritin Liqui-Gel] 10 mg Capsule 10 mg PO QAM RF: 0 lidocaine 5 % Ointment 1 applic TOPICAL BID RF: 0 Jardiance 25 mg Tablet 25 mg PO QAM RF: 0 albuterol sulfate 90 mcg/actuation Aerosol Powdr Breath Activated 2 inh INHALATION Q6H PRN (Reason: Shortness Of Breath) RF: 0 magnesium 250 mg Tablet 250 mg PO BID RF: 0 celecoxib [Celebrex] 200 mg Capsule 200 mg PO BID 30 Days Qty: 60 RF: 1 ferrous sulfate 325 mg (65 mg iron) tablet 325 mg PO DAILY Qty: 30 RF: 0 Discontinued hydrocodone-acetaminophen [Bend] 5-325 mg Tablet 1 - 2 tab PO Q4H PRN (Reason: pain) Qty: 30 RF: 0 Discharge Orders: Discharge Order (Routine); Ordered 09/04/20 Ordered By: Mayur Braswell/Other Patient Handouts: How Your Knee Works Admission Data Admit Date/Time: 09/03/20 12:55 Attending Provider: Antonino Kevin Admit Provider: Antonino Kevin Primary Care Provider: Marce Shine Other Providers: Wes Shrestha Other Interventions: Discharge Summary Assessment (RN) Last Done: 09/04/20 11:53
== END 2020-09-04 16:10 | disposition home or self-care (01) | DRG 940 ==
LOC: ASU 05:06 → 3W 05:06 → OBSVTOIN 12:55

== ENCOUNTER 2021-02-26 08:18 | Inpatient (IN) ==
--- NOTE | 2021-02-10 10:07 | PAT Medication Instructions ---
Medication Instructions Date of Service February 10, 2021 Home Medications Medication Instructions Recorded celecoxib [Celebrex] 200 mg PO BID 30 Days #60 cap 10/10/19 Jardiance 25 mg PO QAM albuterol sulfate 2 inh INHALATION Q6H PRN bupropion HCl [Wellbutrin SR] 150 mg PO BID cholecalciferol (vitamin D3) [Vitamin D3] 1,000 unit PO QAM gabapentin 300 - 600 mg PO UD insulin aspart U-100 [Novolog U-100 Insulin aspart] 1 sliding scale dose SUBCUT USEASDIRECTD lidocaine 1 applic TOPICAL BID lisinopril [Zestril] 2.5 mg PO QPM loratadine [Claritin Liqui-Gel] 10 mg PO QAM multivitamin 1 tab PO QAM vitamin B complex 1 tab PO QAM vitamin E 100 unit PO QAM magnesium 250 mg PO BID celecoxib [Celebrex] 200 mg PO BID aspirin 81 mg PO QAM ferrous sulfate 325 mg PO QAM Continue as directed lidocaine 1 applic TOPICAL BID -- (Do not use on or near surgical site within 24 hours of surgery) ASK your surgeon for instructions celecoxib [Celebrex] 200 mg PO BID STOP taking 2 weeks before surgery If surgery is within 2 weeks, stop taking as soon as possible. vitamin E 100 unit PO QAM DO NOT take the morning of surgery Jardiance 25 mg PO QAM cholecalciferol (vitamin D3) [Vitamin D3] 1,000 unit PO QAM loratadine [Claritin Liqui-Gel] 10 mg PO QAM multivitamin 1 tab PO QAM vitamin B complex 1 tab PO QAM magnesium 250 mg PO BID ferrous sulfate 325 mg PO QAM Take morning of surgery With a small sip of water, OTHERWISE NOTHING TO EAT OR DRINK AFTER MIDNIGHT: albuterol sulfate 2 inh INHALATION Q6H PRN (if needed, and bring with you to the hospital) bupropion HCl [Wellbutrin SR] 150 mg PO BID aspirin 81 mg PO QAM (unless otherwise instructed by your surgeon) Take evening before surgery albuterol sulfate 2 inh INHALATION Q6H PRN (if needed) bupropion HCl [Wellbutrin SR] 150 mg PO BID gabapentin 300 - 600 mg PO UD lisinopril [Zestril] 2.5 mg PO QPM magnesium 250 mg PO BID Insulin Dependent Diabetic Patients CONTINUE INSULIN PUMP AT BASAL RATE, DO NOT BOLUS ON MORNING OF SURGERY. Other Notes If you have any questions please call us at [phone] or [phone] or [phone] or [phone]
--- NOTE | 2021-02-12 11:33 | Anesthesiology Consultation ---
Date of Service February 12, 2021 Assessment & Plan (1) Encounter for pre-operative examination: COVID Status: As of 02/12 assessment, patient denies travel to endemic area, known exposure/sick contacts, or symptoms of COVID19. Patient advised to adhere to social distancing guidelines, wear a mask in public and avoid large crowds or unnecessary travel in the 2 weeks leading up to surgery. Preoperative COVID19 testing to be completed prior to surgery per surgeon's arrangements. Patient encouraged to be extra cautious/conscientious with COVID precautions between COVID testing and surgery. Pt is fully vaccinated. Pt has an insulin pump. Instructed to continue at basal rate with no bolus AM DOS. Check BSG AM DOS. K+ mildly elevated at 5.2 on pre-op labs, recheck AM DOS at [facility] discretion. Chart Review Chart Review: Acceptable Risk for Surgery and Patient seen in Pre Admission Testing Teaching & Discussion Instructed NPO after midnight before surgery, except medications with 15 cc of water. Medication instructions provided according to the PAT guidelines. History Surgery Operation Date: 02/26/21 07:45 Proposed Procedures p Spine L4-L5 Decompression/ Fusion; Sppinal Cord Monitoring - Jam Jose, Height/Weight Height: 5 ft 6 in Weight: 108 kg Allergies Allergy/AdvReac Type Severity Reaction Status Date / Time latex Allergy Mild Blistering-WITH Verified 01/28/21 09:34 GLOVES ragweed pollen Allergy Mild Congestion Verified 01/28/21 09:34 pregabalin [From Lyrica] AdvReac Intermediate Agitation,R Verified 01/28/21 09:34 VESTA oxycodone AdvReac Unknown Vomiting, Verified 01/28/21 09:34 headache, constipation Medications Home Medications Medication Instructions Recorded Confirmed Last Taken Jardiance 25 mg PO QAM 09/03/19 01/28/21 09/02/20 09:00 albuterol sulfate 2 inh INHALATION Q6H PRN 09/03/19 01/28/21 06/30/20 20:00 bupropion HCl [Wellbutrin SR] 150 mg PO BID 09/03/19 01/28/21 09/03/20 04:30 cholecalciferol (vitamin D3) 1,000 unit PO QAM 09/03/19 01/28/21 09/02/20 09:00 [Vitamin D3] gabapentin 300 - 600 mg PO UD 09/03/19 01/28/21 09/02/20 21:00 insulin aspart U-100 [Novolog 1 sliding scale dose SUBCUT 09/03/19 01/28/21 09/02/20 20:30 U-100 Insulin aspart] USEASDIRECTD lidocaine 1 applic TOPICAL BID 09/03/19 01/28/21 09/02/20 21:30 lisinopril [Zestril] 2.5 mg PO QPM 09/03/19 01/28/21 09/02/20 21:00 loratadine [Claritin Liqui-Gel] 10 mg PO QAM 09/03/19 01/28/21 09/02/20 17:30 multivitamin 1 tab PO QAM 09/03/19 01/28/21 09/02/20 09:00 vitamin B complex 1 tab PO QAM 09/03/19 01/28/21 09/02/20 09:00 vitamin E 100 unit PO QAM 09/03/19 01/28/21 09/02/20 09:00 magnesium 250 mg PO BID 10/08/19 01/28/21 09/02/20 09:00 celecoxib [Celebrex] 200 mg PO BID 30 Days #60 cap 10/10/19 01/28/21 09/02/20 17:30 aspirin 81 mg PO QAM 01/28/21 01/28/21 Unknown ferrous sulfate 325 mg PO QAM 01/28/21 01/28/21 Unknown Past Medical History Medical History Anemia Asthma PRN INHALER-SEASONAL ALLERGIES Bilateral polycystic ovarian syndrome Diabetes mellitus, type 2 IDDM (+ insulin pump) Diabetic neuropathy B/L feet + right ankle Dry eye syndrome HTN (hypertension) PT DENIES Obesity Osteoarthritis Seasonal allergies Exercise / Class Metabolic Activity II 4-5 Yardwork/Stairs/Walk up hill (limited only by awful back pain) Past Family History Family History Grandfather (Maternal) Family history of diabetes mellitus Mother Family history of diabetes mellitus Sister Family history of reaction to anesthesia PONV AND SLOW TO WAKE UP Aunt FHx: cancer Aunt FHx: cancer Uncle FHx: colon cancer Grandfather (Paternal) FHx: cancer Past Surgical History Surgical History History of revision of total knee arthroplasty Left total knee revision: 07/01/20: SAB at L3/L4 + PNB at [facility] History of revision of total knee arthroplasty 08/2020 History of total knee replacement Right TKA: 03/12/20: SAB at L3/L4 + PNB at [facility] Left TKA: 10/08/19: SAB x1 attempt at L3 + PNB at [facility] Hx of dilation and curettage Hx of laparoscopy Hx of sinus surgery Nausea and vomiting after administration of anesthetic agent AND SLOW TO WAKE UP Status post repair of complex wound Dog bite to face 2008, required sedation for suturing Past Anesthesia History No Hx of Anesthesia Complications (other than PONV/"slow to wake") and No Family Hx of Anesthesia Complications History of PONV History of PONV and Hx of Motion Sickness Social History Smoking Status: Never smoker Do You Dip or Chew Tobacco: No Hx Alcohol Use: No alcohol intake frequency: holidays/special occasions only Hx Substance Use: No substance use type: does not use Review of Systems Pt denies any recent chest pain, shortness of breath, palpitations, cough, fever, URI, or uncontrolled acid reflux. +allergy symptoms/runny nose/sinus drainage Physical Exam Vital Signs BP: 125/70 P: 69bpm SPO2: 95% RA T: 97.9 F R: 16 ENMT Mouth: + dental restorations (implant lower R and implant post lower L); no chipped teeth and no loose teeth Thyromental Distance: > or= 3.5 Finger Breadths Mallampati Class: II Neck neck extension not limited Respiratory normal respiratory effort, lungs clear to auscultation Cardiovascular RRR, no murmur, no edema Lab Results Anesthesia Preop Results Results Anesthesia Widget: WBC 5.58 K/uL (4.8-10.8) 02/12/21 Hgb 15.8 g/dL (12.0-16.0) 02/12/21 Hct 48.2 % (37-47) H 02/12/21 Plt 263 K/uL (130-400) 02/12/21 Na 138 mmol/L (136-145) 02/12/21 K 5.2 mmol/L (3.5-5.1) H 02/12/21 Cl 106 mmol/L (98-107) 02/12/21 CO2 30 mmol/L (21-32) 02/12/21 BUN 10 mg/dl (7-18) 02/12/21 Creat 1.02 mg/dl (0.6-1.2) 02/12/21 Glucose Level 147 mg/dl (70-99) H 02/12/21 PT 9.7 Seconds (9.0-12.0) 02/12/21 PTT 25.4 Seconds (21.0-31.0) 02/12/21 INR 1.0 (0.9-1.1) 02/12/21 HA1c 7.6 % (4.5-5.6) H 02/12/21 Urine Color Yellow 02/12/21 Urine Appearance Clear (Clear) 02/12/21 Urine pH 5.0 (4.5-7.5) 02/12/21 Urine Specific [place] 1.019 (1.000-1.030) 02/12/21 Urine Protein Negative (Negative) 02/12/21 Urine Glucose (UA) 3+ (Negative) H 02/12/21 Urine Ketones Negative (Negative) 02/12/21 Urine Blood Negative (Negative) 02/12/21 Urine Nitrite Negative (Negative) 02/12/21 Urine Bilirubin Negative (Negative) 02/12/21 Urine Urobilinogen Negative (Negative) 02/12/21 Urine Leukocyte Esterase Trace (Negative) H 02/12/21 Urine WBC (Auto) 1-5 /hpf (0-5) 02/12/21 Urine RBC (Auto) 0-4 /hpf (0-4) 02/12/21 Urine Hyaline Casts (Auto) 0 /lpf (0-5) 02/12/21 Urine Epithelial Cells (Auto) 5-10 /lpf (0-5) H 02/12/21 Urine Bacteria (Auto) Negative (Negative) 02/12/21 Blood Type O Positive 02/12/21 Antibody Screen NEGATIVE 02/12/21 Testing Electrocardiogram Date: 02/12/21 Findings: + NSR @ (69bpm) and + no change from (2018) Chest X-Ray Date: 02/12/21 Findings: + NAD
[~2021-02-26 08:18] MED LIST changes: -BUPIVACAINE 0.25% 30 ML VIAL ONE; -BUPIVACAINE 0.5 % 5 MG/1 ML PF 10ML VIAL ONE; -FAMOTIDINE 20 MG TAB PO SCH; +LR 15ML/HR IV SCH; -LR 500ML BOLUS, THEN 15ML/HR IV SCH; -METOCLOPRAMIDE HCL 10 MG TABLET PO SCH; -MIDAZOLAM HCL 1 MG/ML 2ML VIAL ONE; -TRANEXAMIC ACID 1,000 MG **IV Intra-op IV SCH; -TRANEXAMIC ACID 1,000 MG **IV Pre-op IV SCH; -VANCOMYCIN HCL 1,500 MG in SODIUM CHLORIDE 0.9% 500 ML IV SCH
[2021-02-26] MEDS ORDERED: ATROPINE SULFATE 0.1 MG/ML 10ML SYR IV PRN (09:26)
[2021-02-26] MEDS ORDERED: ONDANSETRON INJ 2 MG/ML 2 ML VIAL IV PRN ×2 (09:26→14:22)
[2021-02-26] MEDS ORDERED: PROMETHAZINE HCL 12.5 MG in SODIUM CHLORIDE 0.9% 50 ML IV PRN ×2 (09:26→14:22)
[2021-02-26] MEDS ORDERED: fentaNYL citrate 100 MCG/2 ML VIAL IV PRN (09:26)
[2021-02-26] MEDS ORDERED: ePHEDrine sulfate 50 MG/ML AMP IV PRN (09:26)
[2021-02-26] MEDS ORDERED: ONDANSETRON INJ 2 MG/ML 2 ML VIAL ONE ×2 (09:32→11:29)
[2021-02-26] MEDS ORDERED: GLYCOPYRROLATE 0.2 MG/ML VIAL ONE ×2 (09:32→11:29)
[2021-02-26] MEDS ORDERED: PROPOFOL IV EMULSION 10 MG/ML 20 ML VIAL IV ONE (09:32)
[2021-02-26] MEDS ORDERED: NEOSTIGMINE METHYLSULFATE 1 MG/ML 10ML VIAL ONE (09:32)
[2021-02-26] MEDS ORDERED: LIDOCAINE 2% 2 ML VIAL/AMP(20MG/ML) INFIL ONE (09:32)
[2021-02-26] MEDS ORDERED: DEXAMETHASONE SOD INJ 4 MG/ML VIAL ONE (09:32)
[2021-02-26] MEDS ORDERED: fentaNYL citrate 100 MCG/2 ML VIAL ONE (09:32)
[2021-02-26] MEDS ORDERED: MIDAZOLAM HCL 1 MG/ML 2ML VIAL ONE (09:33)
[2021-02-26] MEDS ORDERED: ROCURONIUM BROMIDE 10 MG/ML 5 ML VIAL IV ONE (09:36)
[2021-02-26] MEDS ORDERED: LARYING-O-JET KIT (LTA) ONE ×2 (09:36→12:21)
[2021-02-26] MEDS ORDERED: HYDROmorphone INJ 2 MG/ML SYR/VIAL ONE (09:36)
--- NOTE | 2021-02-26 10:07 | History & Physical Bridge Note ---
Date of Service February 26, 2021 History & Physical Bridge Note I have examined the patient, reviewed the History & Physical and in the interval since the performance of the History & Physical I have noted the following changes of clinical significance: no changes noted
--- NOTE | 2021-02-26 10:08 | History & Physical Report ---
Date of Service February 26, 2021 Assessment & Plan (1) Neurogenic claudication due to lumbar spinal stenosis: Admission and Anticipated Discharge Date Admission Date: L4-L5 decompression fusion History of Present Illness Chief Complaint: Back and leg pain Primary Care Provider: Marce Shine PA-C This is a 50-year-old female presents with chronic persistent back and leg pain. Failing course of nonoperative care she is here for surgical invention. Allergies Allergy/AdvReac Type Severity Reaction Status Date / Time latex Allergy Mild Blistering-WITH Verified 02/26/21 08:34 GLOVES ragweed pollen Allergy Mild Congestion Verified 02/26/21 08:34 pregabalin [From Lyrica] AdvReac Intermediate Agitation,R Verified 02/26/21 08:34 VESTA oxycodone AdvReac Unknown Vomiting, Verified 02/26/21 08:34 headache, constipation Home Medications Medication Instructions Recorded Confirmed Type Jardiance 25 mg PO QAM 09/03/19 02/26/21 History albuterol sulfate 2 inh INHALATION Q6H PRN 09/03/19 02/26/21 History bupropion HCl [Wellbutrin SR] 150 mg PO BID 09/03/19 02/26/21 History cholecalciferol (vitamin D3) 1,000 unit PO QAM 09/03/19 02/26/21 History [Vitamin D3] gabapentin 300 - 600 mg PO UD 09/03/19 02/26/21 History insulin aspart U-100 [Novolog 1 sliding scale dose SUBCUT 09/03/19 02/26/21 History U-100 Insulin aspart] USEASDIRECTD lidocaine 1 applic TOPICAL BID 09/03/19 02/26/21 History lisinopril [Zestril] 2.5 mg PO QPM 09/03/19 02/26/21 History loratadine [Claritin Liqui-Gel] 10 mg PO QAM 09/03/19 02/26/21 History multivitamin 1 tab PO QAM 09/03/19 02/26/21 History vitamin B complex 1 tab PO QAM 09/03/19 02/26/21 History vitamin E 100 unit PO QAM 09/03/19 02/26/21 History magnesium 250 mg PO BID 10/08/19 02/26/21 History celecoxib [Celebrex] 200 mg PO BID 30 Days #60 cap 10/10/19 02/26/21 Rx aspirin 81 mg PO QAM 01/28/21 02/26/21 History ferrous sulfate 325 mg PO QAM 01/28/21 02/26/21 History Past Med/Surg History Medical History Anemia Asthma PRN INHALER-SEASONAL ALLERGIES Bilateral polycystic ovarian syndrome Diabetes mellitus, type 2 IDDM (+ insulin pump) Diabetic neuropathy B/L feet + right ankle Dry eye syndrome HTN (hypertension) PT DENIES Obesity Osteoarthritis Seasonal allergies Surgical History History of revision of total knee arthroplasty Left total knee revision: 07/01/20: SAB at L3/L4 + PNB at [facility] History of revision of total knee arthroplasty 08/2020 History of total knee replacement Right TKA: 03/12/20: SAB at L3/L4 + PNB at [facility] Left TKA: 10/08/19: SAB x1 attempt at L3 + PNB at [facility] Hx of dilation and curettage Hx of laparoscopy Hx of sinus surgery Nausea and vomiting after administration of anesthetic agent AND SLOW TO WAKE UP Status post repair of complex wound Dog bite to face 2008, required sedation for suturing Family History Grandfather (Maternal) Family history of diabetes mellitus Mother Family history of diabetes mellitus Sister Family history of reaction to anesthesia PONV AND SLOW TO WAKE UP Aunt FHx: cancer Aunt FHx: cancer Uncle FHx: colon cancer Grandfather (Paternal) FHx: cancer Social History (Updated 01/28/21 @ 10:01 by Lorenza Baldwin RN) Smoking Status: Never smoker Second Hand Exposure: No; Do You Dip or Chew Tobacco: No; Hx Alcohol Use: No Hx Substance Use: No Preferred Language: Polish Communication Ability: Effective Spinning Operator Required: No Beliefs That Will Affect Care: None Current Living Situation: Significant Other Current Living Situation Comment: [facility] current occupational status: employed current occupation: [employer] CLAIMS Other Information That Helps Us Care for You: No Feels Safe at Home: Yes Safety Concerns: Feels Safe At This Time Assistive Devices: Cane and Glasses Assistive Devices Comment: IMPLANTS LOWER BACK Physical Exam Physical Exam: Patient is alert and oriented Heart regular rhythm Lungs clear to auscultation Results & Data ([facility]) Vital Signs (Past 12 Hours) Vital Signs Temp Pulse Resp BP Pulse Ox 02/26/21 08:46 37 C 79 18 148/76 H 97
[2021-02-26] MEDS ORDERED: BUPIVACAINE/EPINEPHRINE 0.5% MPF 1:200,000 30 ML VIAL ONE (10:25)
[2021-02-26] MEDS ORDERED: SCOPOLAMINE 1 MG TDSY TD ONE (10:40)
[2021-02-26] MEDS ORDERED: ePHEDrine sulfate 50 MG/ML SYR ONE (11:29)
[2021-02-26] MEDS ORDERED: FLOSEAL HEMOSTATIC MATRIX 10ML TOP ONE (12:12)
--- NOTE | 2021-02-26 12:34 | Operative Report ---
Post Operative Report Pre & Post Diagnosis Operation Date: 02/26/21 10:05 Pre-Op Diagnosis: Spinal Stenosis,Lumbar Region with Neurogenic Chanelle Post-Op Diagnosis: Spinal Stenosis,Lumbar Region with Neurogenic Chanelle I identified the patient and participated in the time-out.: Yes Procedure Operation Date: 02/26/21 10:05 Actual Procedures #1 Lumbar decompression with bilateral medial facetectomies and foraminotomies L3-4 and L4-5. #2 posterior spinal fusion L4-L5. #3 placed posterior instrumentation L4-L5. #4 interbody fusion L4-5. #5 placement peek cage 12 x 22 mm at L4-L5. #6 placement locally harvested morselized autograft in the posterior gutters. #7 placement of I factor combined with Vitoss in the posterior lateral gutters interbody space. Surgeon Jam Jose, DO Group Captain None Estimated Blood Loss 150 Findings See Below Patient is 5 foot 6 inches tall weighing over 105 kg with a BMI in excess of 37. The patient's body habitus did contribute to significant technical difficulty requiring her deepest retractors longus instruments in order to perform her procedure. This at least 50% increase to the operative time. Specimens None Indications This is a 50-year-old female who presents with above-mentioned diagnosis after failing since course of nonoperative care she is here for surgical intervention Description of Procedure Patient was met with identified informed consent obtained. Patient was then taken to the operative suite underwent a patient placed in a prone position the [facility] top [place] frame. All bony prominences well-padded eyes inspected to ensure no external pressure placed upon the. This point the lumbar spine was prepped and draped in a sterile fashion. Sharp dissection with the assistance pericardial form down to and exposing the lamina and transverse processes of L4 and L5 bilaterally. From caudal cephalad fashion complete laminectomy of L4 partial laminectomy of L3 was performed including bilateral medial facetectomies and foraminotomies addressing severe spinal stenosis as well as obvious marked facet hypertrophy and instability. Pedicle screws were then placed in L4 and L5 bilaterally with assistance of fluoroscopy the proper sized gilberto placed. By way of a transforamen approach on right a complete discectomy of L4-5 was performed endplates curetted to subcortical bleeding bone and a 12 x 22 mm peek cage filled with I factor tapped in position. The rods were then locked in final position bilaterally. The transverse processes of L4-5 burred to subcortical bleeding bone. I factor combined of the vitoss and local autograft was then placed in the posterior gutters. 15 round PRASANTH drain inserted. The incision was then closed with 1 Vicryl to fascia 2-0 Vicryl subcutaneously and 4 Monocryl for final skin closure. Steri-Strip sterile dressings placed. Patient will cont inue PACU stable condition with please note spinal cord monitoring was utilized throughout the procedure no changes noted. I attest to the content of the Intraoperative Record and any orders documented therein. Any exceptions are noted below.
[2021-02-26] MEDS: HYDROmorphone INJ 2 MG/ML SYR/VIAL IV PRN ×2 (13:09→13:30)
--- NOTE | 2021-02-26 13:09 | Fluoroscopy Report ---
FL lumbar spine 2-3V CLINICAL HISTORY: L4-5 DECOMPRESSION/FUSION/INTERBODY COMPARISON STUDY: None. FLUOROSCOPY TIME: 20 seconds. FINDINGS: 2 fluoroscopic spot images of the lower lumbar spine demonstrate posterior decompression fu kaylin at L4-L5 with pedicle screws and rods. The hardware is intact. A disc spacer is in place. IMPRESSION: Fluoroscopy provided for L4-5 posterior decompression and fusion ACT 112: Negative or not required by law. Electronically signed by: Jose Woods M.D. 02/26/2021 1:08 PM
--- NOTE | 2021-02-26 13:41 | Anesthesiology Progress Note ---
Date of Service February 26, 2021 Anesthesia Post Procedure Vital Signs Vital Signs: Temp Pulse Pulse Resp BP Pulse Ox 02/26/21 13:35 36.5 C 91 H 12 112/67 97 02/26/21 13:25 36.5 C 80 9 L 124/69 95 02/26/21 13:15 80 9 L 116/61 96 02/26/21 13:05 82 10 L 122/66 97 02/26/21 12:55 80 13 118/68 98 02/26/21 12:45 79 15 136/71 99 02/26/21 12:38 36.0 C L 92 H 19 114/79 98 02/26/21 08:46 37 C 79 18 148/76 H 97 Pain Intensity Right Lower Back: Pain Intensity: 3 Transfer of Care Handoff Completed per policy Notes Mental Status: alert / awake / arousable and participated in evaluation Patient Amnestic to Procedure: Yes Nausea / Vomiting: adequately controlled Pain: adequately controlled Airway Patency, RR, SpO2: stable & adequate BP & HR: stable & adequate Hydration State: stable & adequate Anesthetic Complications: no major complications apparent and Pt Satisfied with anesthetic care
[2021-02-26] MEDS ORDERED: LORazepam 0.5 MG/1 ML VIAL IV PRN (14:22)
[2021-02-26] MEDS ORDERED: diphenhydrAMINE Capsule 25 MG CAP PO PRN (14:22)
[2021-02-26] MEDS ORDERED: hydrOXYzine HCl 25 MG TAB PO PRN (14:22)
[2021-02-26] MEDS ORDERED: MAGNESIUM HYDROXIDE SUSP 30 ML UDC PO PRN (14:22)
[2021-02-26] MEDS ORDERED: ONDANSETRON 4 MG OD TAB PO PRN (14:22)
[2021-02-26] MEDS ORDERED: DO NOT ADMINISTER FLU VACCINE PRN (14:22)
[2021-02-26] MEDS ORDERED: ALUMINUM/MAGNESIUM SUSP 30 ML UDC PO PRN (14:22)
[2021-02-26] MEDS ORDERED: HYDROmorphone INJ 0.5 MG/0.5 ML SYR IV PRN (14:22)
[2021-02-26] MEDS ORDERED: ACETAMINOPHEN 1,000 MG/100 ML VIAL IV PRN (14:22)
[2021-02-26] MEDS ORDERED: SOD PHOSPHATE/SOD BIPHOSPHATE ENEMA 132 ML BTL PR PRN (14:22)
[2021-02-26] MEDS ORDERED: ACETAMINOPHEN 500 MG TAB PO PRN (14:22)
[2021-02-26] MEDS ORDERED: ceFAZolin 2000MG 2,000 MG/15 ML SYR IV SCH (14:22)
[2021-02-26] MEDS ORDERED: HYDROCODONE/ACETAMOPHEN 5/325MG TAB PO PRN (14:22)
[2021-02-26] MEDS ORDERED: DO NOT ADMINISTER PNEUMOCOCCAL VACCINE PRN (14:22)
[2021-02-26] MEDS ORDERED: METOCLOPRAMIDE HCL INJ 5 MG/ML 2 ML VIAL IV PRN (14:22)
[2021-02-26] MEDS ORDERED: LORazepam 0.5 MG TAB PO PRN (14:22)
[2021-02-26] MEDS ORDERED: HYDROmorphone INJ 1 MG/ML SYRINGE IV PRN (14:22)
[2021-02-26] MEDS ORDERED: PHARMACY GLYCEMIC MGMT CONSULT PRN (14:22)
[2021-02-26] MEDS ORDERED: FAMOTIDINE 20 MG TAB PO PRN (14:22)
[2021-02-26] MEDS ORDERED: NALOXONE HCL 0.4 MG/1 ML VIAL/CARP IV PRN (14:22)
[2021-02-26] MEDS ORDERED: ALBUTEROL HFA 8 GM INHALER INH PRN (14:58)
[2021-02-26] MEDS ORDERED: GLUCAGON FOR INJ 1 MG VIAL SQ PRN (15:03)
[2021-02-26] MEDS ORDERED: GLUCOSE 10 TABS/TUBE PO PRN (15:03)
[2021-02-26] MEDS ORDERED: CARBOHYDRATES FOR HYPOGLYCEMIA PO PRN (15:03)
[2021-02-26] MEDS ORDERED: DC ALL PREVIOUSLY ORDERED DIABETES MEDS ONE (15:03)
[2021-02-26] MEDS ORDERED: DEXTROSE 50% 50 ML SYRINGE IV PRN (15:03)
[2021-02-26] MEDS ORDERED: GLUCOSE 40% GEL 15 GM TUBE PO PRN (15:03)
--- NOTE | 2021-02-26 15:06 | Pharmacy Report ---
Pharmacy Glycemic Short Note 2 - Date of Service February 26, 2021 - Glycemic Short BSG Results (Last 24 hours): 02/26/21 02/26/21 09:14 12:40 POC Glucose 147 H 197 H OUTPATIENT ANTIDIABETIC REGIMEN: * Novolog insulin pump * Patient states that insulin pump settings have not changed since previous admission * Settings at that time were as follows: * -Basal rate: 9356-8048: 1.3 unit/hr, 3578-1799: 1.5 unit/hr (~33 unit/day) * -Carb ratio: 1 unit per 4 grams CHO, Correction factor: 30 mg/dL/unit, goal BSG range: 130-160 mg/dL * Jardiance 25 mg PO daily * HbA1c: 7.6% (02/12/21) ASSESSMENT: * SN is a 50 year old female well-known to pharmacy glycemic service over past year * POD #0 s/p L4-5 decompression/fusion * Received dexamethasone 4 mg IV x 1 in OR * Patient has had good success managing BSGs inpatient with own insulin pump * Discussed with patient, she will continue to manage with pump during this hospital stay * During discussion, patient checked BSG and it was 240 mg/dL, which is very high for her - this was likely due to administration of IV dexamethasone in the OR plus temporary suspension of pump intraoperatively * Patient agreeable to one-time NPH dose to help manage hyperglycemic effects of steroids PLAN FOR INPATIENT GLYCEMIC CONTROL: * Hold outpatient oral diabetes medications * Patient would like to receive Jardiance while inpatient and she will attempt to have someone bring it in for her * Basal insulin * NPH 20 units SC x 1 Pt is to manage BSGs with insulin pump per outpatient settings. * RN will have patient read and sign agreement [id number] Insulin Pump Therapy Patient Agreement. * RN will provide and explain form [id number] Flowsheet for Patient * Patient will document their insulin dose given on [id number] which is kept at the bedside, available to caregivers upon request, and which becomes part of the permanent medical record. If at any time the patients condition evidences that he/she is not able to manage the insulin pump (i.e. frequent hypo/hyperglycemia) Pharmacy will assume glycemic control by discontinuing the pump & managing with SQ basal bolus insulin regimen for the interim. PLAN FOR DISCHARGE: * Continue insulin pump on discharge * Ensure timely follow-up with managing provider
--- NOTE | 2021-02-26 15:13 | Consultation ---
Date of Consultation February 26, 2021 Assessment & Plan (1) Neurogenic claudication due to lumbar spinal stenosis: Status post lumbar decompression fusion L4-L5 by Dr. Jose, POD #0 EBL 150 mL; TRISTIN drain 71 mL Tolerated procedure well Pain/wound management per orthopedics Activity and therapy as prescribed by Ortho Encourage incentive spirometry and wean as able Monitor H&H, preop hemoglobin 15.8 (2) Diabetes mellitus, type 2: Controlled, most recent A1c 7.6 on 02/12/2021 This is significantly higher than A1c in 09/07 which was 6.0 Glycemic pharmacy consulted Patient has insulin pump which remain in place She is on lisinopril for renal protection Hold lisinopril this evening, resume tomorrow with hold parameters (3) Diabetic neuropathy: Continue gabapentin (4) Obesity: BMI 37.5 Encourage lifestyle and diet modifications (5) DVT prophylaxis: SCD/teds per Ortho Dispo: Per primary PCP: Hank Full code Patient was seen and examined in collaboration with Dr. Wilks, please see addendum Thank you for this consultation. We will follow the patient with you during their hospital stay. You can reach a member of the [facility] Hospitalist Team 11/04 via hospitalist role on tiger text. Supervising Physician Co-Signing Physician Notes Patient is a 50-year-old female with history of insulin-dependent diabetes mellitus, hypertension, hyperlipidemia and other medical problems was consulted for postop medical management. Patient had lumbar decompression surgery by Dr. Jose. Pain at surgical site is controlled. Reports chronic numbness and tingling in the feet which he attributes to diabetic neuropathy. Denies any chest pain, shortness of breath, dizziness, nausea, abdominal pain. Offers no other complaints currently. On exam patient is obese, no apparent distress, normocephalic atraumatic, lungs are clear to auscultation, normal breath sounds, S1-S2, no murmur, no pedal edema, abdomen soft, nontender, normal bowel sounds, back-surgical site in dressing,+ drain, alert, awake, oriented, grossly no focal deficits. Patient is consulted for postop medical management. Pain control, wound care, DVT prophylaxis, activity as per primary team. Continue incentive spirometry. Bowel regimen to prevent constipation. Monitor CBC for postop anemia. Continue insulin pump for diabetes management. Glycemic pharmacy consulted. Monitor blood glucose levels. I personally reviewed the record. Patient is interviewed and examined at bedside. Patient's care is coordinated with Ela Coe PA-C. Please refer to the documentation above for details of patient's presentation and for discussion of other issues. History of Present Illness Requesting Physician: Dr. Jose Reason for Consultation: Postop medical management Attending Physician: Jam Jose, DO History of Present Illness This is a 50-year-old male who has significant past medical history of T2DM insulin-dependent, diabetic neuropathy, HTN, HLD, asthma, dry eye syndrome, obesity who presents for elective lumbar decompression L4-L5 by Dr. Jose. She tolerated the procedure well. Patient is familiar to our team secondary to recent left knee revision on 08/2020 as well as development of prior infection to initial left knee replacement. Postoperatively she is doing well with no complaints. She denies fever, chills, sweats, lightheadedness, dizziness, chest pain, shortness of breath, cough, URI symptoms, nausea, vomiting, abdominal pain, change in bowel or urinary habits. Of significance she is insulin-dependent diabetic and manages it with insulin pump. Her most recent A1c was 7.6 on 02/12/2021 which is higher than the most recent A1c in 08/2020 of 6.0. She admits to gaining approx 30 lbs since August and this has her discouraged. Allergies Allergy/AdvReac Type Severity Reaction Status Date / Time latex Allergy Mild Blistering-WITH Verified 02/26/21 08:34 GLOVES ragweed pollen Allergy Mild Congestion Verified 02/26/21 08:34 pregabalin [From Lyrica] AdvReac Intermediate Agitation,R Verified 02/26/21 08:34 VESTA oxycodone AdvReac Unknown Vomiting, Verified 02/26/21 08:34 headache, constipation Home Medications Medication Instructions Recorded Confirmed Type Jardiance 25 mg PO QAM 09/03/19 02/26/21 History albuterol sulfate 2 inh INHALATION Q6H PRN 09/03/19 02/26/21 History bupropion HCl [Wellbutrin SR] 150 mg PO BID 09/03/19 02/26/21 History cholecalciferol (vitamin D3) 1,000 unit PO QAM 09/03/19 02/26/21 History [Vitamin D3] gabapentin 300 - 600 mg PO UD 09/03/19 02/26/21 History insulin aspart U-100 [Novolog 1 sliding scale dose SUBCUT 09/03/19 02/26/21 History U-100 Insulin aspart] USEASDIRECTD lidocaine 1 applic TOPICAL BID 09/03/19 02/26/21 History lisinopril [Zestril] 2.5 mg PO QPM 09/03/19 02/26/21 History loratadine [Claritin Liqui-Gel] 10 mg PO QAM 09/03/19 02/26/21 History multivitamin 1 tab PO QAM 09/03/19 02/26/21 History vitamin B complex 1 tab PO QAM 09/03/19 02/26/21 History vitamin E 100 unit PO QAM 09/03/19 02/26/21 History magnesium 250 mg PO BID 10/08/19 02/26/21 History celecoxib [Celebrex] 200 mg PO BID 30 Days #60 cap 10/10/19 02/26/21 Rx aspirin 81 mg PO QAM 01/28/21 02/26/21 History ferrous sulfate 325 mg PO QAM 01/28/21 02/26/21 History Patient History Medical History Anemia Asthma PRN INHALER-SEASONAL ALLERGIES Bilateral polycystic ovarian syndrome Diabetes mellitus, type 2 IDDM (+ insulin pump) Diabetic neuropathy B/L feet + right ankle Dry eye syndrome HTN (hypertension) PT DENIES Obesity Osteoarthritis Seasonal allergies Surgical History History of revision of total knee arthroplasty Left total knee revision: 07/01/20: SAB at L3/L4 + PNB at [facility] History of revision of total knee arthroplasty 08/2020 History of total knee replacement Right TKA: 03/12/20: SAB at L3/L4 + PNB at [facility] Left TKA: 10/08/19: SAB x1 attempt at L3 + PNB at [facility] Hx of dilation and curettage Hx of laparoscopy Hx of sinus surgery Nausea and vomiting after administration of anesthetic agent AND SLOW TO WAKE UP Status post repair of complex wound Dog bite to face 2008, required sedation for suturing Family History Grandfather (Maternal) Family history of diabetes mellitus Mother Family history of diabetes mellitus Sister Family history of reaction to anesthesia PONV AND SLOW TO WAKE UP Aunt FHx: cancer Aunt FHx: cancer Uncle FHx: colon cancer Grandfather (Paternal) FHx: cancer Social History Smoking Status: Never smoker Second Hand Exposure: No; Do You Dip or Chew Tobacco: No; Hx Alcohol Use: No Hx Substance Use: No Preferred Language: Polish Communication Ability: Effective Conductor/Engineer Required: No Beliefs That Will Affect Care: None marital status: Life Partner Current Living Situation: Significant Other Current Living Situation Comment: [facility] current occupational status: employed current occupation: [employer] CLAIMS Other Information That Helps Us Care for You: No Feels Safe at Home: Yes Safety Concerns: Feels Safe At This Time Assistive Devices: Cane and Glasses Assistive Devices Comment: IMPLANTS LOWER BACK Review of Systems Review of Systems: All systems reviewed & are unremarkable except as noted in HPI & below Physical Exam Physical Exam: Constitutional: WD/WN, vitals as above, NAD, sitting up in bed, pleasant, conversing easily Head: Normocephalic, Atraumatic Eyes: PERRL, conjunctivae normal, anicteric sclerae ENMT: external ear and nose normal, oropharynx normal Neck: trachea midline, no thyromegaly normal visual inspection Respiratory: normal respiratory effort, lungs clear to auscultation, no wheeze, rales, rhonchi. Normal insp/exp effort, no accessory muscle use Cardiovascular: RRR, no murmur, no edema, SCD/TEDS in place Vessels: no JVD or carotid bruit Chest: normal inspection of chest Abdomen: normal bowel sounds, soft, nontender, no hepatosplenomegaly Musculoskeletal: no cyanosis or clubbing, extremities motor strength 5/5 , lumbar dressing CDI, tristin drain with sersang drainage, nvi distally Skin: no rashes, warm and dry normal turgor Neurologic: PERRL, EOMI, accommodation nl, no face palsy, no dysarthria CN's II-XI intact bilaterally and moves all extremities Psychiatric: A+Ox3, euthymic affect Lymphatic: no cervical or axillary lymphadenopathy : deferred Results & Data ([facility]) Vital Signs (Past 12 Hours) Vital Signs Temp Pulse Pulse Resp BP Pulse Ox 02/26/21 14:57 36.4 C L 78 18 115/74 97 02/26/21 13:35 36.5 C 91 H 12 112/67 97 02/26/21 13:25 36.5 C 80 9 L 124/69 95 02/26/21 13:15 80 9 L 116/61 96 02/26/21 13:05 82 10 L 122/66 97 02/26/21 12:55 80 13 118/68 98 02/26/21 12:45 79 15 136/71 99 02/26/21 12:38 36.0 C L 92 H 19 114/79 98 02/26/21 08:46 37 C 79 18 148/76 H 97 Laboratory Results Preoperative labs 02/12/2021 A1c 7.6 H&H 15.8 and 48.2, platelet 263 Sodium 138, K5.2, BUN 10, creatinine 1.02, glucose 147 SARS-CoV-2 negative Diagnostic Findings Lumbar Spine X-Ray 02/26/21 10:05 FL lumbar spine 2-3V CLINICAL HISTORY: L4-5 DECOMPRESSION/FUSION/INTERBODY COMPARISON STUDY: None. FLUOROSCOPY TIME: 20 seconds. FINDINGS: 2 fluoroscopic spot images of the lower lumbar spine demonstrate posterior decompression fusion at L4-L5 with pedicle screws and rods. The hardware is intact. A disc spacer is in place. IMPRESSION: Fluoroscopy provided for L4-5 posterior decompression and fusion ACT 112: Negative or not required by law. Electronically signed by: Jose Woods M.D. 02/26/2021 1:08 PM Medications Administered Medication List Acetaminophen (Acetaminophen 500 Mg Tab) 1,000 mg PO PREOP LANDON Stop: 02/26/21 18:00 Last Admin: 02/26/21 09:13 Dose: 1,000 mg Documented by: [id number] Celecoxib (Celebrex 200 Mg Cap) 200 mg PO PREOP LANDON Stop: 02/26/21 18:00 Last Admin: 02/26/21 09:13 Dose: 200 mg Documented by: [id number] Fentanyl Citrate (Fentanyl Citrate 100 Mcg/2 Ml Vial) 50 mcg IV Q5M PRN PRN Reason: PACU Use Only-Pain Stop: 02/26/21 17:26 Last Admin: 02/26/21 12:50 Dose: 50 mcg Documented by: [id number] Gabapentin (Gabapentin 900 Mg Dose) 900 mg PO PREOP LANDON Stop: 02/26/21 18:00 Last Admin: 02/26/21 09:13 Dose: 900 mg Documented by: [id number] Hydromorphone HCl (Hydromorphone Inj 2 Mg/Ml Syr/Vial) 0.5 mg IV Q5M PRN PRN Reason: PACU Use Only-Pain Stop: 02/26/21 17:26 Last Admin: 02/26/21 13:30 Dose: 0.5 mg Documented by: [id number] Admin: 02/26/21 13:09 Dose: 0.5 mg Documented by: [id number] Lactated Ringer's (Lr) 1,000 mls @ 15 mls/hr IV .Q24H LANDON Stop: 02/27/21 05:59 Last Infusion: 02/26/21 10:45 Dose: 0 mls/hr Documented by: [id number] Admin: 02/26/21 09:10 Dose: 15 mls/hr Documented by: [id number] Cefazolin Sodium (Ancef 2000mg) 2,000 mg in 15 mls @ 3.75 mls/min IV PREOP LANDON; Protocol Stop: 02/26/21 18:00 Last Admin: 02/26/21 10:45 Dose: 3.75 mls/min Documented by: [id number] Discontinued Medications Bupivacaine HCl/Epinephrine Bitart (Bupivacaine/Epinephrine 0.5% Mpf 1:200,000 30 Ml Vial) Confirm Administered Dose 30 ml .ROUTE .STK-MED ONE Stop: 02/26/21 10:26 Last Admin: 02/26/21 11:24 Dose: 20 ml Documented by: [id number] Cefazolin Sodium (Cefazolin 250 Mg/Ml 1 Gm Vial) Confirm Administered Dose 1,000 mg .ROUTE .STK-MED ONE Stop: 02/26/21 10:27 Last Admin: 02/26/21 11:25 Dose: 1,000 mg Documented by: [id number] ECG Rate (beats per minute): 69 Rhythm: normal sinus Comparison ECG Date: from (09/11/2019) Change: no significant change
[2021-02-26] MEDS ORDERED: NovoLIN-N (NPH) PER UNIT CHARGE SQ ONE (15:15)
[2021-02-26] MEDS ORDERED: INSULIN ASPART 100 UNITS/ML VIAL SC PRN (15:15)
[2021-02-26] MEDS: SODIUM CHLORIDE 0.9% 1000ML 1,000 ML IV SCH ×2 (15:51→23:33)
[2021-02-26] MEDS: KETOROLAC TROMETHAMINE 15 MG/ML VIAL IV SCH ×2 (15:51→21:06)
[2021-02-26] MEDS: GABAPENTIN 300 MG CAP PO SCH ×2 (17:40→21:06)
[2021-02-26] MEDS: ceFAZolin 2000MG 2,000 MG/15 ML SYR IV SCH (17:40)
[2021-02-26] MEDS: NovoLOG INSULIN PUMP SCH ×2 (18:31→21:08)
[2021-02-26] MEDS ORDERED: lisinopril 2.5 MG TAB PO SCH (21:00)
[2021-02-26] MEDS ORDERED: NON-FORMULARY MEDICATION (Magnesium 250 mg Tablet) PO SCH (21:00)
[2021-02-26] MEDS: buPROPion SR 150 MG TABCR PO SCH (21:06)
[2021-02-26] MEDS: DOCUSATE SODIUM/SENNA 50/8.6MG TAB PO SCH (21:06)
[2021-02-26] MEDS: LIDOCAINE 5% OINT 30 GM TUBE TOP SCH (21:08)
[2021-02-27] MEDS: ceFAZolin 2000MG 2,000 MG/15 ML SYR IV SCH (02:43)
[2021-02-27] MEDS: KETOROLAC TROMETHAMINE 15 MG/ML VIAL IV SCH ×2 (02:44→09:02)
[2021-02-27] MEDS: SODIUM CHLORIDE 0.9% 1000ML 1,000 ML IV SCH (05:47)
[2021-02-27] MEDS: POLYETHYLENE (MIRALAX) 17 GM PACK PO SCH ×4 (05:50→23:40)
[2021-02-27 06:40] LABS: Basophils # (auto) 0.01 K/uL (0-0.2); Basophils % (auto) 0.1 %; Eosinophils # (auto) 0.08 K/uL (0-0.5); Eosinophils % (auto) 1.1 %; Hematocrit (blood only) 38.2 % (37-47); Hemoglobin 12.7 g/dL (12.0-16.0); Immature Granulocytes # (auto) 0.02 K/uL (0.00-0.02); Immature Granulocytes % (auto) 0.3 %; Lymphocytes # (auto) 1.83 K/uL (1.2-3.4); Mean Corpuscular Hemoglobin 30.2 pg (25-34); Mean Corpuscular Hgb Conc 33.2 g/dL (32-36); Mean Platelet Volume 9.4 fL (7.4-10.4); Monocytes # (auto) 0.54 K/uL (0.11-0.59); Monocytes % (auto) 7.1 %; Neutrophils # (auto) 5.13 K/uL (1.4-6.5); Neutrophils % (auto) 67.4 %; Platelet Count 218 K/uL (130-400); RDW Coefficient of Variation 13.8 % (11.5-14.5); RDW Standard Deviation 45.9 fL (36.4-46.3); White Blood Count 7.61 K/uL (4.8-10.8)
[2021-02-27 07:14] LABS: BUN Creatinine Ratio 17.2 (10-20); Calcium 8.7 mg/dl (8.5-10.1); Est GFR (African American) 79.8 ml/min; Est GFR (Non-African American) 68.9 ml/min; Magnesium 2.3 mg/dl (1.8-2.4); Potassium 4.1 mmol/L (3.5-5.1)
[2021-02-27] MEDS: NovoLOG INSULIN PUMP SCH ×4 (08:48→23:38)
[2021-02-27] MEDS: MULTIVITAMIN TAB PO SCH (09:04)
[2021-02-27] MEDS: LIDOCAINE 5% OINT 30 GM TUBE TOP SCH ×2 (09:04→20:30)
[2021-02-27] MEDS: FERROUS SULFATE 325 MG TAB PO SCH (09:05)
[2021-02-27] MEDS: LORATADINE 10 MG TAB PO SCH (09:05)
[2021-02-27] MEDS: VITAMIN B COMPLEX TAB PO SCH (09:06)
[2021-02-27] MEDS: TOCOPHERYL, DL-ALPHA 100 UNITS CAP PO SCH (09:06)
[2021-02-27] MEDS: buPROPion SR 150 MG TABCR PO SCH ×2 (09:07→20:29)
[2021-02-27] MEDS: CHOLECALCIFEROL 1,000 UNITS 25 MCG TAB PO SCH (09:07)
[2021-02-27] MEDS: ASPIRIN 81 MG ECTAB PO SCH (09:08)
[2021-02-27] MEDS: GABAPENTIN 300 MG CAP PO SCH ×2 (09:09→20:28)
[2021-02-27] MEDS: traMADol HCL 50 MG TABLET PO PRN (12:35)
--- NOTE | 2021-02-27 13:09 | Orthopedic Progress Note ---
Date of Service February 27, 2021 Assessment & Plan (1) Neurogenic claudication due to lumbar spinal stenosis: Admission and Anticipated Discharge Date Admission Date: February 26, 2021 At this time we will continue physical therapy monitor her PRASANTH output anticipate discharge home this weekend. Subjective Patient's back pain is controlled leg symptoms markedly improved. Physical Exam Physical Exam: On exam she is in a chair at the bedside. Is good strength testing. Appears comfortable. Results & Data ([facility]) Vital Signs (Past 12 Hours) Vital Signs Temp Pulse Pulse Resp BP Pulse Ox 02/27/21 11:57 36.4 C L 77 18 109/66 99 02/27/21 07:33 36.4 C L 75 17 105/68 99 02/27/21 03:21 36.8 C 75 18 93/59 L 97
[2021-02-27] MEDS ORDERED: Nursing to Pharmacy Communication SCH (15:45)
[2021-02-27] MEDS ORDERED: GABAPENTIN 300 MG CAP PO SCH (16:30)
--- NOTE | 2021-02-27 17:46 | Hospitalist Progress Note ---
Date of Service February 27, 2021 Assessment & Plan (1) Neurogenic claudication due to lumbar spinal stenosis: Lumbar spinal stenosis with neurogenic claudication S/P lumbar decompression fusion L4-L5 by Dr. Jose, POD #1 Pain/wound management per orthopedics PT/OT Continue Incentive spirometry Continue Bowel regimen (2) Diabetes mellitus, type 2: Hb A1c 7.6 on 02/12/2021 Appreciate Glycemic pharmacy help On Insulin pump Monitor BGs (3) Diabetic neuropathy: Continue gabapentin (4) Obesity: BMI 37.5 Encourage lifestyle and diet modifications (5) DVT prophylaxis: SCD/teds per Ortho Thank you for this consultation. We will follow the patient with you during their hospital stay. You can reach a member of the [facility] Hospitalist Team 11/04 via hospitalist role on tiger text. Admission and Anticipated Discharge Date Admission Date: February 26, 2021 Subjective Patient is seen and examined at bedside Back pain is well controlled Sitting in chair this morning No bowel movement today Denies chest pain, shortness breath, dizziness, nausea, abdominal pain Offers no other complaints Ambulated in hallways this morning Review of Systems Review of Systems: All systems reviewed & are unremarkable except as noted in HPI & below Physical Exam Physical Exam: Physical Exam: Vitals signs as noted above General Appearance:Obese, no apparent distress Head: normocephalic, Atraumatic Eyes: normal inspection, EOMI Neck: supple, Trachea midline Respiratory/Chest: Normal breath sounds, CTA Cardiovascular: S1, S2, No murmur Abdomen/GI:Soft, Non tender, Bowel sounds present Back: Surgical site in dressing, +drain Extremities/Musculoskeletal:normal inspection, no edema Neurologic/Psych:AAOX3, grossly no focal neurological deficits Skin: normal color, warm Results & Data Results & Data ([facility]) Vital Signs (Past 12 Hours) Vital Signs Temp Pulse Resp BP Pulse Ox 02/27/21 15:37 36.8 C 76 16 110/66 99 02/27/21 11:57 36.4 C L 77 18 109/66 99 02/27/21 07:33 36.4 C L 75 17 105/68 99 Laboratory Results Short CBC 02/27/21 Range/Units 06:12 WBC 7.61 (4.8-10.8) K/uL Hgb 12.7 (12.0-16.0) g/dL Hct 38.2 (37-47) % Plt Count 218 (130-400) K/uL BMP 02/27/21 06:12 Sodium 138 Potassium 4.1 Chloride 106 Carbon Dioxide 25 BUN 16 Creatinine 0.95 Glucose 126 H Calcium 8.7
[2021-02-27] MEDS: DOCUSATE SODIUM/SENNA 50/8.6MG TAB PO SCH (20:28)
[2021-02-27] MEDS ORDERED: lisinopril 2.5 MG TAB PO SCH (21:00)
[2021-02-28] MEDS: traMADol HCL 50 MG TABLET PO PRN ×2 (01:35→11:54)
[2021-02-28] MEDS: POLYETHYLENE (MIRALAX) 17 GM PACK PO SCH (06:22)
[2021-02-28] MEDS ORDERED: dexAMETHasone 8 MG in SYRINGE 0 ML IV SCH (09:00)
[2021-02-28] MEDS: NovoLOG INSULIN PUMP SCH (09:30)
[2021-02-28] MEDS: FERROUS SULFATE 325 MG TAB PO SCH (09:31)
[2021-02-28] MEDS: VITAMIN B COMPLEX TAB PO SCH (09:31)
[2021-02-28] MEDS: ASPIRIN 81 MG ECTAB PO SCH (09:31)
[2021-02-28] MEDS: TOCOPHERYL, DL-ALPHA 100 UNITS CAP PO SCH (09:31)
[2021-02-28] MEDS: MULTIVITAMIN TAB PO SCH (09:32)
[2021-02-28] MEDS: LORATADINE 10 MG TAB PO SCH (09:32)
[2021-02-28] MEDS: LIDOCAINE 5% OINT 30 GM TUBE TOP SCH (09:32)
[2021-02-28] MEDS: buPROPion SR 150 MG TABCR PO SCH (09:32)
[2021-02-28] MEDS: CHOLECALCIFEROL 1,000 UNITS 25 MCG TAB PO SCH (09:32)
--- NOTE | 2021-02-28 10:48 | Discharge Summary ---
Date of Service February 28, 2021 Admission HPI Per Admitting Provider This is a 50-year-old female presents with chronic persistent back and leg pain. Failing course of nonoperative care she is here for surgical invention. Principal Diagnosis Lumbar spinal stenosis with neurogenic claudication Discharge Data Allergies Allergy/AdvReac Type Severity Reaction Status Date / Time latex Allergy Mild Blistering-WITH Verified 02/26/21 08:34 GLOVES ragweed pollen Allergy Mild Congestion Verified 02/26/21 08:34 pregabalin [From Lyrica] AdvReac Intermediate Agitation,R Verified 02/26/21 08:34 VESTA oxycodone AdvReac Unknown Vomiting, Verified 02/26/21 08:34 headache, constipation Consultations 02/26/21 14:22 Consult Hospitalist Routine Procedures Performed Operation Date: 02/26/21 10:05 Actual Procedures p L4-L5 Decompression Fusion; Spinal Cord Monitoring, Placement of Interbody (Not Applicable) - Jam Jose DO Ordered Studies 02/26/21 10:05 FL lumbar spine 2-3V Routine Hospital Course (1) Neurogenic claudication due to lumbar spinal stenosis: Patient with lumbar decompression fusion tolerates well second orthopedic for possibly. Postop day 1 she was up and ambulating progressed to postop day #2 PRASANTH drain decreasing probably. Excellent strength testing. Subsequent discharge home. Discharge orders and instructions were on the chart for further review. Total Time Total Time Spent Total Time Spent (In Minutes): 20 minutes Discharge Plan Discharge Items Patient Disposition: Home - Self-Care Reason For Visit: Spinal Stenosis,Lumbar Region with Neurogenic Chanelle Discharge Diagnosis: Lumbar spinal stenosis with neurogenic claudication Activity: As commented below Non-emergency contact: Primary Care Provider Call non-emergency contact if: you have any medication questions Follow-up/Referrals: Marce Shine PA-C [Primary Care Provider] - Diet: Regular Addtl Attending Provider Instructions: ACTIVITY RECOMMENDATIONS: SELF CARE INSTRUCTIONS AFTER THORACIC/LUMBAR FUSIONS 1. You may walk to your tolerance. It is good exercise for your legs and back. Expect some back and intermittent leg aches and pains. 2. You may perform "counter-top" level activities (make a sandwich, brando with a project, etc.). 3. No bending or lifting of more than 10 pounds or back twisting of any nature (roll like a log when turning in bed). 4. You may ride in a car for 20-30 minutes at a time. No driving until after your first visit with your doctor. 5. Frequent changes of position and restricting sitting to 30 minutes at a time will help limit the amount of back spasms and stiffness you may experience. 6. You may discontinue the use of ambulatory aids (cane, crutches, etc.) once your strength and confidence allow. 7. You may mine car dispatcher the shower and let water strike your incision when you arrive home at least once daily. Do not take a tub bath, sit in a hot tub or go into a swimming pool until after your first recheck in the office. SPECIAL CARE INSTRUCTIONS: VERY IMPORTANT TO READ AND REVIEW A. Your surgical incision has been closed with a cosmetic suture under the skin that will dissolve in about 6 weeks. In 14 days, you can use a pair of clean scissors and cut the suture that is left outside of the skin at the ends of your incision. 1. The small skin tapes can be removed 7 days after surgery if they have not fallen off by that point. 2. You may keep the wound open to air as much as possible to promote healing after post-op day number 5 unless told otherwise by your doctor. 3. If you think the wound looks like it is becoming infected (redness or worsening drainage) and/or you are experiencing fever, chill or worsening back pain and muscle spasms, contact the office so that we may evaluate you as soon as possible. B. Complications are uncommon, but please contact us if you have any signs or symptoms of: 1. wound infection (fever higher than 102.5 degrees F, redness, separation of wound, drainage, or increasing pain from the incision) 2. blood clots in legs (pain, swelling, redness and warmth in legs) 3. urinary tract infection (fever higher than 102.5 degrees F, burning upon urination or increased frequency of urination) 4. nerve problems (inability to walk on your toes or heels, numbness, loss of bowel or bladder control) 5. any other symptoms that concern you C. Please call the office at if you have any concerns or questions about your operation or recovery. D. No smoking! Smoking drastically decreases the chance of a solid fusion. E. Do not take any anti-inflammatory medications (Indocin, Advil, Motrin, Aspirin, Naprosyn, etc.) as these may inhibit the chance of a solid fusion. Tylenol is okay to take for pain. MANAGING PAIN AFTER SPINAL SURGERY 1. Narcotic medication is intended for short-term use and will be provided for surgical pain. Surgical pain usually lasts for a period of 4-6 weeks. Narcotic medication includes Percocet, Vicodin, Darvocet, Tylenol #3 or Lortab. 2. Longer-term pain is more appropriately treated with non-narcotic medication such as Tylenol ES. 3. Muscle spasm is not appropriately treated with narcotics. Muscle relaxers such as Soma, Flexeril or Skelaxin can be used along with Tylenol ES. 4. Remember that we all live with some "aches and pains". This is not unusual or uncommon after an injury or as we get older. a. Back pain is expected and may include muscle spasms for 4 to 6 weeks after surgery. The pain should gradually improve. If the pain worsens for no apparent reason, please contact the office. b. Intermittent leg pain may also be experienced and should not be concerned about unless it worsens for no apparent reason. If so, please contact the office. 5. We will provide appropriate medication within the normal guidelines of their prescribed use. We will also be very cautious and aware of potential abuse and extended duration of patients' medication needs. a. Pain medications are for your comfort and to assist with sleep and rest so that the tissue can heal. They are not provided in order to return to normal activity and should not be used through the day. To do so or worsening pain at night can result from ongoing tissue damage and development of tolerance to the prescribed medicine. 6. Please allow 2-3 days to process refills. Prescriptions will not be mailed but must be picked up at the office. FOLLOW UP VISIT: Keep your scheduled follow-up appointment. Any questions, please call the office at . Pending Studies at Discharge: No Stand-Alone Forms: My [employer], Smoking Cessation Medications and DC Order Prescriptions: New hydrocodone-acetaminophen 5-325 mg tablet See Rx Instructions .ROUTE .COMPLEX PRN (Reason: pain) Qty: 30 RF: 0 tramadol 50 mg tablet 50 mg PO Q6H PRN (Reason: pain, moderate) Qty: 30 RF: 0 Continued multivitamin Tablet 1 tab PO QAM RF: 0 bupropion HCl [Wellbutrin SR] 150 mg Tablet Sustained-Release 12 Hr 150 mg PO BID RF: 0 vitamin E 100 unit Capsule 100 unit PO QAM RF: 0 insulin aspart U-100 [Novolog U-100 Insulin aspart] 100 unit/mL Solution 1 sliding scale dose SUBCUT USEASDIRECTD RF: 0 gabapentin 300 mg Capsule 300 - 600 mg PO UD RF: 0 vitamin B complex Tablet 1 tab PO QAM RF: 0 lisinopril [Zestril] 2.5 mg Tablet 2.5 mg PO QPM RF: 0 cholecalciferol (vitamin D3) [Vitamin D3] 25 mcg (1,000 unit) Capsule 1,000 unit PO QAM RF: 0 loratadine [Claritin Liqui-Gel] 10 mg Capsule 10 mg PO QAM RF: 0 lidocaine 5 % Ointment 1 applic TOPICAL BID RF: 0 Jardiance 25 mg Tablet 25 mg PO QAM RF: 0 albuterol sulfate 90 mcg/actuation Aerosol Powdr Breath Activated 2 inh INHALATION Q6H PRN (Reason: Shortness Of Breath) RF: 0 magnesium 250 mg Tablet 250 mg PO BID RF: 0 celecoxib [Celebrex] 200 mg Capsule 200 mg PO BID 30 Days Qty: 60 RF: 1 aspirin 81 mg tablet,delayed release (DR/EC) 81 mg PO QAM RF: 0 ferrous sulfate 325 mg (65 mg iron) tablet 325 mg PO QAM RF: 0 Discharge Orders: Discharge Order (Routine); Ordered 02/28/21 Ordered By: Jam Jose Admission Data Admit Date/Time: 02/26/21 12:43 Attending Provider: Jam Jose Admit Provider: Jam Jose Primary Care Provider: Marce Shine Other Providers: Melvin Wilks ; Starr Brown ; Bre Preciado
[2021-02-28] MEDS ORDERED: bisacodyL 10 MG SUPP PR PRN (12:35)
== END 2021-02-28 13:00 | disposition home or self-care (01) | DRG 455 ==
LOC: ASU 08:18 → 3E 12:43

== ENCOUNTER 2022-08-30 08:03 | Inpatient (IN) ==
--- NOTE | 2022-07-01 13:12 | PAT Medication Instructions ---
Medication Instructions Date of Service July 01, 2022 Home Medications albuterol sulfate 90 mcg/actuation breath activated powder inhaler 2 inh inhalation Q6H PRN bupropion HCl 150 mg tablet,12 hr sustained-release (Wellbutrin SR) 150 mg PO BID cholecalciferol (vitamin D3) 25 mcg (1,000 unit) capsule (Vitamin D3) 1,000 unit PO QAM empagliflozin 25 mg tablet (Jardiance) 25 mg PO QAM gabapentin 300 mg capsule 300 - 600 mg PO UD insulin aspart U-100 100 unit/mL subcutaneous solution (Novolog U-100 Insulin aspart) 1 sliding scale dose subcut USEASDIRECTD lidocaine 5 % topical ointment 1 applic topical UD PRN lisinopril 2.5 mg tablet (Zestril) 2.5 mg PO QPM loratadine 10 mg capsule (Claritin Liqui-Gel) 10 mg PO QAM multivitamin 1 tab PO QAM vitamin B complex 1 tab PO QAM vitamin E 100 unit capsule 100 unit PO QAM magnesium 250 mg tablet 250 mg PO BID aspirin 81 mg tablet,delayed release 81 mg PO QAM ferrous sulfate 325 mg (65 mg iron) tablet 325 mg PO QAM Sooth Xp 1 dose UD psyllium seed (sugar) oral powder (Metamucil (sugar) oral powder) 1 tsp PO QAM STOP 3 days before surgery empagliflozin 25 mg tablet (Jardiance) 25 mg PO QAM Continue as directed gabapentin 300 mg capsule 300 - 600 mg PO UD ASK your prescriber and surgeon aspirin 81 mg tablet,delayed release 81 mg PO QAM STOP taking 2 weeks before surgery vitamin B complex 1 tab PO QAM vitamin E 100 unit capsule 100 unit PO QAM Sooth Xp 1 dose UD STOP taking 24 hours before surgery lidocaine 5 % topical ointment 1 applic topical UD PRN DO NOT take the morning of surgery cholecalciferol (vitamin D3) 25 mcg (1,000 unit) capsule (Vitamin D3) 1,000 unit PO QAM insulin aspart U-100 100 unit/mL subcutaneous solution (Novolog U-100 Insulin aspart) 1 sliding scale dose subcut USEASDIRECTD loratadine 10 mg capsule (Claritin Liqui-Gel) 10 mg PO QAM multivitamin 1 tab PO QAM magnesium 250 mg tablet 250 mg PO BID ferrous sulfate 325 mg (65 mg iron) tablet 325 mg PO QAM psyllium seed (sugar) oral powder (Metamucil (sugar) oral powder) 1 tsp PO QAM Take morning of surgery With a small sip of water, OTHERWISE NOTHING TO EAT OR DRINK AFTER MIDNIGHT: albuterol sulfate 90 mcg/actuation breath activated powder inhaler 2 inh inhalation Q6H PRN(use if needed; please bring with you to hospital day of surgery if possible) bupropion HCl 150 mg tablet,12 hr sustained-release (Wellbutrin SR) 150 mg PO BID Take evening before surgery albuterol sulfate 90 mcg/actuation breath activated powder inhaler 2 inh inhalation Q6H PRN(if needed) bupropion HCl 150 mg tablet,12 hr sustained-release (Wellbutrin SR) 150 mg PO BID lisinopril 2.5 mg tablet (Zestril) 2.5 mg PO QPM magnesium 250 mg tablet 250 mg PO BID Other Notes If you have any questions please call us at [phone] or [phone] or [phone] or [phone]
--- NOTE | 2022-07-07 13:38 | Anesthesiology Consultation ---
Date of Service July 07, 2022 Assessment & Plan (1) Encounter for pre-operative examination: - COVID screening: Per assessment on 07/07: No known COVID-19 positive contacts or current COVID-19 related symptoms. Travel screen negative. Patient vaccinated. At surgeon discretion if preop Covid testing being done. - S/P L4-5 fusion (02/26/21): Grade view 1, MAC#3, ETT 7 at [facility] - Check BSG, pregancy test AM DOS Chart Review Chart Review: Acceptable Risk for Surgery and Patient seen in Pre Admission Testing Teaching & Discussion Pre-Anesthesia Teaching/Discussion Notes: Instructed NPO after midnight before surgery,except medications with 15 cc of water. Medication instructions provided according to the PAT guidelines. History Surgery Operation Date: 07/28/22 07:45 Proposed Procedures p L3-L4 and L5-S1 Decompression, L3-S1 Fusion, L4-L5 Hardware Removal, Spinal Cord Monitoring - Jam Jose, Height/Weight Height: 5 ft 6 in Weight: 114.4 kg Allergies Allergy/AdvReac Type Severity Reaction Status Date / Time ragweed pollen Allergy Mild Congestion Verified 07/01/22 09:40 latex Allergy Unknown Blistering Verified 07/06/22 12:57 (with gloves) oxycodone AdvReac Unknown Vomiting, Verified 07/01/22 09:40 headache, constipation pregabalin [From Lyrica] AdvReac Unknown Agitation, Verified 07/06/22 12:57 rash Medications Home Medications Medication Instructions Recorded Confirmed Last Taken albuterol sulfate 90 mcg/actuation 2 inh inhalation Q6H PRN Shortness 09/03/19 07/01/22 02/26/21 08:37 breath activated powder inhaler Of Breath bupropion HCl 150 mg tablet,12 hr 150 mg PO BID 09/03/19 07/01/22 02/26/21 07:30 sustained-release (Wellbutrin SR) cholecalciferol (vitamin D3) 25 1,000 unit PO QAM 09/03/19 07/01/22 02/25/21 08:00 mcg (1,000 unit) capsule (Vitamin D3) empagliflozin 25 mg tablet 25 mg PO QAM 09/03/19 07/01/22 02/25/21 09:00 (Jardiance) gabapentin 300 mg capsule 300 - 600 mg PO UD 09/03/19 07/01/22 02/25/21 21:00 300 mg insulin aspart U-100 100 unit/mL 1 sliding scale dose subcut 09/03/19 07/01/22 02/26/21 subcutaneous solution (Novolog USEASDIRECTD U-100 Insulin aspart) lidocaine 5 % topical ointment 1 applic topical UD PRN NEUROPATHY 09/03/19 07/01/22 02/25/21 21:30 lisinopril 2.5 mg tablet (Zestril) 2.5 mg PO QPM 09/03/19 07/01/22 02/25/21 21:00 loratadine 10 mg capsule (Claritin 10 mg PO QAM 09/03/19 07/01/22 02/25/21 09:00 Liqui-Gel) multivitamin 1 tab PO QAM 09/03/19 07/01/22 02/25/21 09:00 vitamin B complex 1 tab PO QAM 09/03/19 07/01/22 02/25/21 09:00 vitamin E 100 unit capsule 100 unit PO QAM 09/03/19 07/01/22 02/25/21 09:00 magnesium 250 mg tablet 250 mg PO BID 10/08/19 07/01/22 02/25/21 21:00 aspirin 81 mg tablet,delayed 81 mg PO QAM 01/28/21 07/01/22 02/26/21 07:30 release ferrous sulfate 325 mg (65 mg 325 mg PO QAM 01/28/21 07/01/22 02/25/21 09:00 iron) tablet Sooth Xp 1 dose UD 07/01/22 07/01/22 Unknown psyllium seed (sugar) oral powder 1 tsp PO QAM 07/01/22 07/01/22 Unknown (Metamucil (sugar) oral powder) Past Medical History Medical History Anemia Asthma "Mild"/stable Bilateral polycystic ovarian syndrome Diabetes mellitus, type 2 IDDM (+ insulin pump) Diabetic neuropathy Intermittent (Feet/toes, right ankle) Dry eye syndrome Obesity Osteoarthritis Exercise / Class Metabolic Activity III < 4 Walking/Shop/Light housework Past Family History Family History Grandfather (Maternal) Family history of diabetes mellitus Mother Family history of diabetes mellitus Sister Family history of reaction to anesthesia PONV AND SLOW TO WAKE UP Aunt FHx: cancer Aunt FHx: cancer Uncle FHx: colon cancer Grandfather (Paternal) FHx: cancer Past Surgical History Surgical History History of lumbar fusion L4-5 fusion (02/26/21): Grade view 1, MAC#3, ETT 7 at [facility] History of revision of total knee arthroplasty Left total knee revision (07/01/20): SAB at L3/L4 + PNB at [facility] History of total knee replacement Right TKA (03/12/20): SAB at L3/L4 + PNB at [facility] Left TKA (10/08/19): SAB x1 attempt at L3 + PNB at [facility] Hx of dilation and curettage Hx of laparoscopy Hx of sinus surgery Nausea and vomiting after administration of anesthetic agent S/P PICC central line placement Since removed Slow to wake up after anesthesia Status post repair of complex wound Dog bite to face 2008, required sedation for suturing Past Anesthesia History Other ("Slow to wake" with sinus surgery, Awareness with knee surgeries, post-op hypotension) Sister: Slow to wake, PONV History of PONV History of PONV and Hx of Motion Sickness (Occasional) Social History Smoking Status: Never smoker Do You Dip or Chew Tobacco: No Hx Alcohol Use: Yes alcohol intake frequency: holidays/special occasions only Hx Substance Use: No substance use type: does not use Review of Systems Patient denies chest pain, shortness of breath, fever, chills, cough, wheezing, palpitations. Physical Exam Vital Signs VITALS BP 125/71 P 82 TEMP 98.3 SP02 98%RA RESP 16 PHYSICAL Full cervical extension range of motion. Full TMJ range of motion. TMD 4 finger breaths Mallampati Score 2 Dentition: intact, lower side right implant, lower left side implant post Lungs: clear throughout to auscultation Cardiac: regular rate and rhythm, no murmurs noted Spine: normal Carotid arteries: negative bruit Extremities: no edema Short neck Lab Results Anesthesia Preop Results Results Anesthesia Widget: WBC 6.23 K/ul (4.8-10.8) 07/07/22 Hgb 15.9 g/dl (12.0-16.0) 07/07/22 Hct 48.1 % (34.1-44.9) H 07/07/22 Plt 272 K/uL (130-400) 07/07/22 Na 140 mmol/L (136-145) 07/07/22 K 4.6 mmol/L (3.5-5.1) 07/07/22 Cl 103 mmol/L (98-107) 07/07/22 CO2 29 mmol/L (21-32) 07/07/22 BUN 19 mg/dl (6-23) 07/07/22 Creat 1.04 mg/dl (0.6-1.2) 07/07/22 Glucose Level 104 mg/dl (70-99(Fasting)) H 07/07/22 PT 10.6 Seconds (9.0-12.0) 07/07/22 PTT 26.4 Seconds (21.0-31.0) 07/07/22 INR 1.0 (0.9-1.1) 07/07/22 Urine Color Dark Yellow 07/07/22 Urine Appearance Cloudy (Clear) A 07/07/22 Urine pH 5.0 (4.5-7.5) 07/07/22 Urine Specific [place] 1.027 (1.000-1.030) 07/07/22 Urine Protein Negative (Negative) 07/07/22 Urine Glucose (UA) 3+ (Negative) H 07/07/22 Urine Ketones Negative (Negative) 07/07/22 Urine Blood Negative (Negative) 07/07/22 Urine Nitrite Negative (Negative) 07/07/22 Urine Bilirubin Negative (Negative) 07/07/22 Urine Urobilinogen Negative (Negative) 07/07/22 Urine Leukocyte Esterase 1+ (Negative) H 07/07/22 Urine WBC (Auto) 10-30 /hpf (0-5) H 07/07/22 Urine RBC (Auto) 0-4 /hpf (0-4) 07/07/22 Urine Hyaline Casts (Auto) 1-5 /lpf (0-5) 07/07/22 Urine Epithelial Cells (Auto) 20-30 /lpf (0-5) H 07/07/22 Urine Bacteria (Auto) Negative (Negative) 07/07/22 Urine Yeast Not Reportable 07/07/22 Blood Type O Positive 07/07/22 Antibody Screen NEGATIVE 07/07/22 Testing Laboratory Results 06/09/22 HGBA1C 7.1% Electrocardiogram Date: 07/07/22 NSR at 78bpm. Chest X-Ray Date: 07/07/22 FINDINGS: Cardiac mediastinal and hilar silhouettes are within normal limits. No pneumothorax, pleural effusion, airspace consolidation or overt pulmonary edema. Bones of the chest appear grossly intact. IMPRESSION: No acute process. COVID-19 Risk Screen Screening Information COVID-19 Screen Date: 07/07/22 Exposure 21 Days Family/Household +COVID Last 21 Days: No Exposure 10 Days Any COVID Exposure Last 10 Days: No Symptoms Last 10 Days Experienced COVID Sx Last 10 Days: No + COVID 0-90 Days COVID + in Last 0-90 Days: No
[~2022-08-30 08:03] MED LIST changes: +ALLERGY Noted to ORDERED Medication SCH
[2022-08-30] MEDS ORDERED: Nursing to Pharmacy Communication SCH (08:30)
[2022-08-30] MEDS ORDERED: GABAPENTIN 900 MG DOSE PO SCH (09:00)
[2022-08-30] MEDS ORDERED: HYDROmorphone INJ 2 MG/ML SYR/VIAL IV PRN (09:11)
[2022-08-30] MEDS ORDERED: ePHEDrine sulfate 50 MG/ML AMP IV PRN (09:11)
[2022-08-30] MEDS ORDERED: ATROPINE SULFATE 0.1 MG/ML 10ML SYR IV PRN (09:11)
[2022-08-30] MEDS ORDERED: ONDANSETRON INJ 2 MG/ML 2 ML VIAL IV PRN ×2 (09:11→13:38)
[2022-08-30] MEDS ORDERED: PROMETHAZINE HCL 12.5 MG in SODIUM CHLORIDE 0.9% 50 ML IV PRN ×2 (09:11→13:38)
--- NOTE | 2022-08-30 09:23 | History & Physical Bridge Note ---
Date of Service August 30, 2022 History & Physical Bridge Note I have examined the patient, reviewed the History & Physical and in the interval since the performance of the History & Physical I have noted the following changes of clinical significance: no changes noted
--- NOTE | 2022-08-30 09:24 | History & Physical Report ---
Date of Service August 30, 2022 Assessment & Plan (1) Neurogenic claudication due to lumbar spinal stenosis: Plan: L3-L4 and L5-S1 decompression, L3-S1 fusion, L4-L5 hardware removal History of Present Illness Chief Complaint: Back and bilateral leg pain Primary Care Provider: Marce Shine PA-C This is a 50-year-old female known to me the presents with chronic chest and back and bilateral leg pain. Failing since course of nonoperative care she is here for surgical invention. Allergies Allergy/AdvReac Type Severity Reaction Status Date / Time latex Allergy Intermediate Blistering Verified 08/30/22 08:22 (with gloves) ragweed pollen Allergy Mild Congestion Verified 08/30/22 08:22 oxycodone AdvReac Mild Vomiting, Verified 08/30/22 08:22 headache, constipation pregabalin [From Lyrica] AdvReac Mild Agitation, Verified 08/30/22 08:22 rash Home Medications Medication Instructions Recorded Confirmed Type albuterol sulfate 90 mcg/actuation 2 inh inhalation Q6H PRN Shortness 09/03/19 08/30/22 History breath activated powder inhaler Of Breath bupropion HCl 150 mg tablet,12 hr 150 mg PO BID 09/03/19 08/30/22 History sustained-release (Wellbutrin SR) cholecalciferol (vitamin D3) 25 1,000 unit PO QAM 09/03/19 08/30/22 History mcg (1,000 unit) capsule (Vitamin D3) empagliflozin 25 mg tablet 25 mg PO QAM 09/03/19 08/30/22 History (Jardiance) gabapentin 300 mg capsule 300 - 600 mg PO UD 09/03/19 08/30/22 History insulin aspart U-100 100 unit/mL 1 sliding scale dose subcut 09/03/19 08/30/22 History subcutaneous solution (Novolog USEASDIRECTD U-100 Insulin aspart) lidocaine 5 % topical ointment 1 applic topical UD PRN NEUROPATHY 09/03/19 08/27/22 History lisinopril 2.5 mg tablet (Zestril) 2.5 mg PO QPM 09/03/19 08/30/22 History loratadine 10 mg capsule (Claritin 10 mg PO QAM 09/03/19 08/30/22 History Liqui-Gel) multivitamin 1 tab PO QAM 09/03/19 08/30/22 History vitamin B complex 1 tab PO QAM 09/03/19 08/30/22 History vitamin E 100 unit capsule 100 unit PO QAM 09/03/19 08/27/22 History magnesium 250 mg tablet 250 mg PO BID 10/08/19 08/30/22 History aspirin 81 mg tablet,delayed 81 mg PO QAM 01/28/21 08/30/22 History release ferrous sulfate 325 mg (65 mg 325 mg PO QAM 01/28/21 08/30/22 History iron) tablet Sooth Xp 1 dose UD 07/01/22 08/27/22 History psyllium seed (sugar) oral powder 1 tsp PO QAM 07/01/22 08/30/22 History (Metamucil (sugar) oral powder) Past Med/Surg History Medical History Anemia Asthma "Mild"/stable Bilateral polycystic ovarian syndrome Diabetes mellitus, type 2 IDDM (+ insulin pump) Diabetic neuropathy Intermittent (Feet/toes, right ankle) Dry eye syndrome Obesity Osteoarthritis Surgical History History of lumbar fusion L4-5 fusion (02/26/21): Grade view 1, MAC#3, ETT 7 at [facility] History of revision of total knee arthroplasty Left total knee revision (07/01/20): SAB at L3/L4 + PNB at [facility] History of total knee replacement Right TKA (03/12/20): SAB at L3/L4 + PNB at [facility] Left TKA (10/08/19): SAB x1 attempt at L3 + PNB at [facility] Hx of dilation and curettage Hx of laparoscopy Hx of sinus surgery Nausea and vomiting after administration of anesthetic agent S/P PICC central line placement Since removed Slow to wake up after anesthesia Status post repair of complex wound Dog bite to face 2008, required sedation for suturing Family History Grandfather (Maternal) Family history of diabetes mellitus Mother Family history of diabetes mellitus Sister Family history of reaction to anesthesia PONV AND SLOW TO WAKE UP Aunt FHx: cancer Aunt FHx: cancer Uncle FHx: colon cancer Grandfather (Paternal) FHx: cancer Social History Smoking Status: Never smoker Second Hand Exposure: No; Do You Dip or Chew Tobacco: No; Hx Alcohol Use: Yes Hx Substance Use: No Preferred Language: Algerian Communication Ability: Effective Wreath Inspector Required: No Beliefs That Will Affect Care: None marital status: Life Partner Current Living Situation: Significant Other Current Living Situation Comment: [facility] current occupational status: employed current occupation: [employer] Other Information That Helps Us Care for You: Yes (PT WOULD LIKE TO BE HOME BEFORE SAT NOV 12 IF POSSIBLE) Feels Safe at Home: Yes Safety Concerns: Feels Safe At This Time Assistive Devices: Glasses and Other Assistive Devices Comment: INSULIN PUMP/DEXCOM, 2 TOTAL DENTAL IMPLANTS LOWER Physical Exam Physical Exam: Patient is alert and oriented Heart regular rhythm Lungs clear Results & Data Results & Data ([place]) Vital Signs (Past 12 Hours) Vital Signs Temp Pulse Resp BP Pulse Ox O2 Del Method 08/30/22 08:31 36.5 C 73 20 122/65 93 Room Air
[2022-08-30] MEDS ORDERED: BUPIVACAINE/EPINEPHRINE 0.25% 1:200,000 30 ML VIAL ONE (09:27)
[2022-08-30] MEDS ORDERED: ceFAZolin 330 MG/ML 1 GM VIAL ONE (09:27)
[2022-08-30] MEDS ORDERED: PROPOFOL IV EMULSION 10 MG/ML 20 ML VIAL IV ONE (09:28)
[2022-08-30] MEDS ORDERED: LIDOCAINE 2% MPF LOCAL 5 ML VIAL INFIL ONE (09:28)
[2022-08-30] MEDS ORDERED: NEOSTIGMINE METHYLSULFATE 1 MG/ML 10ML VIAL ONE (09:28)
[2022-08-30] MEDS ORDERED: GLYCOPYRROLATE 0.2 MG/ML VIAL ONE (09:28)
[2022-08-30] MEDS ORDERED: DEXAMETHASONE SOD INJ 4 MG/ML VIAL ONE (09:28)
[2022-08-30] MEDS ORDERED: ROCURONIUM BROMIDE 10 MG/ML 5 ML VIAL IV ONE ×3 (09:28→10:15)
[2022-08-30] MEDS ORDERED: ONDANSETRON INJ 2 MG/ML 2 ML VIAL ONE ×2 (09:28→11:55)
[2022-08-30] MEDS ORDERED: HYDROmorphone INJ 2 MG/ML SYR/VIAL ONE (09:29)
[2022-08-30] MEDS ORDERED: ALBUMIN HUMAN 5% 12.5 GM/250 ML VIAL IV ONE (09:38)
[2022-08-30] MEDS ORDERED: SCOPOLAMINE 1 MG TDSY TD ONE (09:44)
[2022-08-30] MEDS ORDERED: METOCLOPRAMIDE HCL INJ 5 MG/ML 2 ML VIAL ONE (10:22)
[2022-08-30] MEDS ORDERED: ePHEDrine sulfate 50 MG/ML SYR ONE (10:31)
[2022-08-30] MEDS ORDERED: ePHEDrine sulfate 50 MG/ML AMP ONE (11:12)
[2022-08-30] MEDS ORDERED: SURGICEL ABSORB HEMOSTAT 2IN X 14IN TOP ONE (11:50)
[2022-08-30] MEDS ORDERED: FLOSEAL HEMOSTATIC MATRIX 10ML TOP ONE (11:51)
--- NOTE | 2022-08-30 12:07 | Operative Report ---
Post Operative Report Pre & Post Diagnosis Operation Date: 07/28/22 11:35 <No data on this case meets the specified criteria> Operation Date: 08/30/22 09:35 Pre-Op Diagnosis: Neurogenic Claudication due to Lumbar Spinal Stenosis Post-Op Diagnosis: Neurogenic Claudication due to Lumbar Spinal Stenosis I identified the patient and participated in the time-out.: Yes Procedure Operation Date: 07/28/22 11:35 <No data on this case meets the specified criteria> Operation Date: 08/30/22 09:35 Actual Procedures #1 removal of posterior instrumentation L4-L5. #2 exploration of fusion L4-5 per #3 lumbar decompression bilateral medial facetectomies and foraminotomies L2-L3, L3-L4 and L5-S1. #4 posterior spinal fusion L3-S1. #5 placement posterior instrumentation L3-S1. #6 interbody fusion L3-L4. #7 placement of Spira 14 x 26 mm cage at L3-L4. #8 placement locally harvested morselized autograft in the posterior gutters. Benign placement of I factor combined with V toss in the interbody space and posterior gutters. Surgeon Jam Jose, DO Health Care Assistant Christina Hicks Estimated Blood Loss 500 Findings See Below Patient is 5 foot 6 inches tall weighing over 113 kg with a BMI in excess of 40. Patient's body habitus did contribute to significant technical difficulty required deepest retractors longer instruments noted to perform her procedure. This at least 50% increased operative time. Specimens None Indications This is a 51-year-old female known to me the presents above-mentioned diagnosis after failing course of nonoperative care she is here for surgical intervention. Description of Procedure Patient was met with identified informed consent obtained. Patient was then taken to the operative suite underwent a patient placed in a prone position on the Ramez table on top of the Bossman frame. All bony prominences well-padded eyes inspected to ensure no external pressure placed upon them. This point the lumbar spine was prepped and draped in normal sterile fashion. Sharp dissection with the assistance of Bovie cartilage from down to and exposing the lamina and transverse processes of L3 and instrumentation at L4-L5 and the lamina and transverse processes of L5 and sacral ala bilaterally. I then proceeded move the hardware at L4-L5 bilaterally explore the fusion mass noting it to be mature and intact. I then performed a complete laminectomy L5 L3 and partial laminectomy of L2 including bilateral medial facetectomies and foraminotomies addressing severe spinal stenosis. Pedicle screws were then placed in L3-L4-L5 and S1 levels bilaterally with assistance of fluoroscopy and the properly sized gilberto placed. By way of entrance foraminal approach and left a complete discectomy of L3-L4 was performed on the left endplates curetted to subcortical bleeding bone and a 13 x 26 mm spiral cage with I factor tapped in position. The rods were then locked into final position bilaterally. The transverse processes of L3-L4-L5 and sacral ala burred to subcortical bleeding bone. I factor model V toss and locally harvested morselized autograft was placed in the posterior gutters. 15 round PRASANTH drain inserted. The incision was then closed with 1 Vicryl fascia 2-0 Vicryl subcutaneously and 4 Monocryl for final skin closure. Steri-Strips dressings placed. Patient waken taken to PACU in stable condition. Please note spinal cord monitoring was utilized at the procedure no changes noted. Lastly Christina Hicks was present at the entire surgeon while the patient positioning complex portion of the surgery and final skin closure. I attest to the content of the Intraoperative Record and any orders documented therein. Any exceptions are noted below.
[2022-08-30] MEDS: fentaNYL citrate 100 MCG/2 ML VIAL IV PRN ×3 (12:35→12:50)
--- NOTE | 2022-08-30 13:17 | Fluoroscopy Report ---
FL lumbar spine 2-3V CLINICAL HISTORY: L4-5 HR L3-S1 DFI COMPARISON STUDY: None. FLUOROSCOPY TIME: 34 seconds. FINDINGS: 3 fluoroscopic spot images of the lumbar spine demonstrate posterior decompression fusion f rom L3 through S1 with pedicle screws and rods. The hardware appears intact. There are disc spacers a t L3-L4 and L4-5. IMPRESSION: Fluoroscopic assistance provided for posterior decompression and fusion from L3 through S 1. ACT 112: Negative or not required by law. Electronically signed by: Jose Woods M.D. 08/30/2022 1:16 PM
--- NOTE | 2022-08-30 13:21 | Anesthesiology Progress Note ---
Date of Service August 30, 2022 Anesthesia Post Procedure Vital Signs Vital Signs: Temp Pulse Resp BP Pulse Ox O2 Del Method O2 Flow Rate 08/30/22 12:50 77 15 119/49 L 96 Oxymask 3 08/30/22 12:40 77 8 L 123/64 97 Oxymask 5 08/30/22 12:30 73 12 91/65 L 98 Oxymask 5 08/30/22 12:22 37.1 C 79 10 L 104/66 94 Oxymask 5 08/30/22 08:31 36.5 C 73 20 122/65 93 Room Air Pain Intensity Bilateral Back: Pain Intensity: 7 Transfer of Care Handoff Completed per policy Notes Mental Status: alert / awake / arousable and participated in evaluation Patient Amnestic to Procedure: Yes Nausea / Vomiting: adequately controlled Pain: adequately controlled Airway Patency, RR, SpO2: stable & adequate BP & HR: stable & adequate Hydration State: stable & adequate Anesthetic Complications: no major complications apparent
[2022-08-30] MEDS ORDERED: INSULIN ASPART PER UNIT SQ SCH (13:38)
[2022-08-30] MEDS ORDERED: LORazepam 0.5 MG TAB PO PRN (13:38)
[2022-08-30] MEDS ORDERED: ALUMINUM/MAGNESIUM SUSP 30 ML UDC PO PRN (13:38)
[2022-08-30] MEDS ORDERED: LIDOCAINE 5% OINT 30 GM TUBE TOP PRN (13:38)
[2022-08-30] MEDS ORDERED: SOD PHOSPHATE/SOD BIPHOSPHATE ENEMA 132 ML BTL PR PRN (13:38)
[2022-08-30] MEDS ORDERED: ACETAMINOPHEN 1,000 MG/100 ML VIAL IV PRN (13:38)
[2022-08-30] MEDS ORDERED: METOCLOPRAMIDE HCL INJ 5 MG/ML 2 ML VIAL IV PRN (13:38)
[2022-08-30] MEDS ORDERED: hydrOXYzine HCl 25 MG TAB PO PRN (13:38)
[2022-08-30] MEDS ORDERED: traMADol HCL 50 MG TABLET PO PRN (13:38)
[2022-08-30] MEDS ORDERED: diphenhydrAMINE Capsule 25 MG CAP PO PRN (13:38)
[2022-08-30] MEDS ORDERED: PHARMACY GLYCEMIC MGMT CONSULT PRN (13:38)
[2022-08-30] MEDS ORDERED: HYDROmorphone INJ 1 MG/ML SYRINGE IV PRN (13:38)
[2022-08-30] MEDS ORDERED: DO NOT ADMINISTER FLU VACCINE PRN (13:38)
[2022-08-30] MEDS ORDERED: FAMOTIDINE 20 MG TAB PO PRN (13:38)
[2022-08-30] MEDS ORDERED: ONDANSETRON 4 MG OD TAB PO PRN (13:38)
[2022-08-30] MEDS ORDERED: MAGNESIUM HYDROXIDE SUSP 30 ML UDC PO PRN (13:38)
[2022-08-30] MEDS ORDERED: NALOXONE HCL 0.4 MG/1 ML VIAL/CARP IV PRN (13:38)
[2022-08-30] MEDS ORDERED: bisacodyL 10 MG SUPP PR PRN (13:38)
[2022-08-30] MEDS ORDERED: HYDROmorphone INJ 0.5 MG/0.5 ML SYR IV PRN (13:38)
[2022-08-30] MEDS ORDERED: LORazepam 0.5 MG in SYRINGE 0 ML IV PRN (13:38)
[2022-08-30] MEDS ORDERED: DO NOT ADMINISTER PNEUMOCOCCAL VACCINE PRN (13:38)
[2022-08-30] MEDS ORDERED: ACETAMINOPHEN 500 MG TAB PO PRN (13:38)
[2022-08-30] MEDS ORDERED: ALBUTEROL HFA 8 GM INHALER INH PRN (14:16)
[2022-08-30] MEDS: SODIUM CHLORIDE 0.9% 1000ML 1,000 ML IV SCH ×2 (15:00→21:23)
[2022-08-30] MEDS ORDERED: INSULIN ASPART 100 UNITS/ML VIAL SC PRN (15:15)
--- NOTE | 2022-08-30 15:16 | Hospitalist Consultation ---
Date of Consultation August 30, 2022 Assessment & Plan (1) Neurogenic claudication due to lumbar spinal stenosis: POD#0 L3-L4 and L5-S1 decompression, L3-S1 fusion, L4-L5 hardware removal by Dr. Jose Activity and wound care orders as per ortho Pain control with bowel regimen PT/OT Monitor H/H for acute blood loss anemia and transfuse blood products PRN EBL 500 cc (2) Diabetes mellitus, type 2: On insulin pump Hgb A1c 7.1 05/2022 Patient to continue self management with insulin pump while admitted, discussed with glycemic pharmacy who will follow along as well (3) HTN (hypertension): BP controlled, continue lisinopril (4) HLD (hyperlipidemia): Continue statin (5) DVT prophylaxis: TEDs/SCDs as per spine Ortho Thank you for this consultation. We will follow the patient with you during their hospital stay. You can reach a member of the [facility] Hospitalist Team 11/04 [facility] [place] Text. Supervising Physician Co-Signing Physician Notes Attending addendum: The patient was seen and examined in medical floor She is a status post lumbar decompression and fusion Still has some drowsiness from the effect of medications but denies any other symptoms On examination Lying in bed without any acute distress Hemodynamically stable Chestclear HeartS1, S2, Abdomenbenign Extremities no edema Her labs, imaging studies and medications reviewed Remains medically stable following lumbar decompression fusion Agree with assessment and plan as outlined above by Ivory Reynolds History of Present Illness Reason for Consultation: Postop medical management Requesting Physician: Dr. Jose Attending Physician: Jam Jose DO History of Present Illness 51-year-old female with PMH DM type II on insulin pump, diabetic polyneuropathy, HLD, HTN, and other problems listed below who is s/p L3-L4 and L5-S1 decompression, L3-S1 fusion, L4-L5 hardware removal today by Dr. Jose. Postoperatively, the patient is doing well. She reports her pain is well controlled. Denies numbness, tingling, weakness of the lower extremities. No chest pain or shortness of breath. Denies lightheadedness and dizziness. No abdominal pain or nausea. Hooper catheter is in place draining clear yellow urine. Allergies Allergy/AdvReac Type Severity Reaction Status Date / Time latex Allergy Intermediate Blistering Verified 12/12/22 08:22 (with gloves) ragweed pollen Allergy Mild Congestion Verified 08/30/22 08:22 oxycodone AdvReac Mild Vomiting, Verified 08/30/22 08:22 headache, constipation pregabalin [From Lyrica] AdvReac Mild Agitation, Verified 08/30/22 08:22 rash Home Medications Medication Instructions Recorded Confirmed Type albuterol sulfate 90 mcg/actuation 2 inh inhalation Q6H PRN Shortness 09/03/19 08/30/22 History breath activated powder inhaler Of Breath bupropion HCl 150 mg tablet,12 hr 150 mg PO BID 09/03/19 08/30/22 History sustained-release (Wellbutrin SR) cholecalciferol (vitamin D3) 25 1,000 unit PO QAM 09/03/19 08/30/22 History mcg (1,000 unit) capsule (Vitamin D3) empagliflozin 25 mg tablet 25 mg PO QAM 09/03/19 08/30/22 History (Jardiance) insulin aspart U-100 100 unit/mL 1 sliding scale dose subcut 09/03/19 08/30/22 History subcutaneous solution (Novolog USEASDIRECTD U-100 Insulin aspart) lidocaine 5 % topical ointment 1 applic topical UD PRN NEUROPATHY 09/03/19 08/30/22 History lisinopril 2.5 mg tablet (Zestril) 2.5 mg PO QPM 09/03/19 08/30/22 History loratadine 10 mg capsule (Claritin 10 mg PO QAM 09/03/19 08/30/22 History Liqui-Gel) multivitamin 1 tab PO QAM 09/03/19 08/30/22 History vitamin B complex 1 tab PO QAM 09/03/19 08/30/22 History vitamin E 100 unit capsule 100 unit PO QAM 09/03/19 08/30/22 History magnesium 250 mg tablet 250 mg PO BID 10/08/19 08/30/22 History aspirin 81 mg tablet,delayed 81 mg PO QAM 01/28/21 08/30/22 History release ferrous sulfate 325 mg (65 mg 325 mg PO QAM 01/28/21 08/30/22 History iron) tablet Sooth Xp 1 dose UD 07/01/22 08/30/22 History psyllium seed (sugar) oral powder 1 tsp PO QAM 07/01/22 08/30/22 History (Metamucil (sugar) oral powder) gabapentin 300 mg capsule 300 mg PO HS 08/30/22 08/30/22 History gabapentin 300 mg capsule 600 mg PO QDD 08/30/22 08/30/22 History rosuvastatin 5 mg tablet 5 mg PO HS 08/30/22 08/30/22 History Patient History Medical History Anemia Arthritis of right knee Asthma "Mild"/stable Bilateral polycystic ovarian syndrome Diabetes mellitus, type 2 IDDM (+ insulin pump) Diabetic neuropathy Intermittent (Feet/toes, right ankle) Dry eye syndrome HLD (hyperlipidemia) Infection of total left knee replacement Obesity Osteoarthritis Surgical History History of lumbar fusion L4-5 fusion (02/26/21): Grade view 1, MAC#3, ETT 7 at [facility] History of revision of total knee arthroplasty Left total knee revision (07/01/20): SAB at L3/L4 + PNB at [facility] History of total knee replacement Right TKA (03/12/20): SAB at L3/L4 + PNB at [facility] Left TKA (10/08/19): SAB x1 attempt at L3 + PNB at [facility] Hx of dilation and curettage Hx of laparoscopy Hx of sinus surgery Nausea and vomiting after administration of anesthetic agent S/P PICC central line placement Since removed Slow to wake up after anesthesia Status post repair of complex wound Dog bite to face 2008, required sedation for suturing Status post total knee replacement, left Family History Grandfather (Maternal) Family history of diabetes mellitus Mother Family history of diabetes mellitus Sister Family history of reaction to anesthesia PONV AND SLOW TO WAKE UP Aunt FHx: cancer Aunt FHx: cancer Uncle FHx: colon cancer Grandfather (Paternal) FHx: cancer Social History Smoking Status: Never smoker Second Hand Exposure: No; Do You Dip or Chew Tobacco: No; Hx Alcohol Use: Yes Hx Substance Use: No Preferred Language: Citizen Of [place] Communication Ability: Effective Hadoop Administrator Required: No Beliefs That Will Affect Care: None marital status: Life Partner Current Living Situation: Significant Other Current Living Situation Comment: [facility] current occupational status: employed current occupation: [employer] Other Information That Helps Us Care for You: Yes (PT WOULD LIKE TO BE HOME BEFORE SAT NOV 12 IF POSSIBLE) Feels Safe at Home: Yes Safety Concerns: Feels Safe At This Time Assistive Devices: Glasses and Other Assistive Devices Comment: INSULIN PUMP/DEXCOM, 2 TOTAL DENTAL IMPLANTS LOWER Review of Systems Review of Systems: ROS per HPI, all other systems reviewed and negative Physical Exam Constitutional: WD/WN, vitals as above Eyes: PERRL, conjunctivae normal, anicteric sclerae ENMT: external ear and nose normal, oropharynx normal Respiratory: normal respiratory effort, lungs clear to auscultation Cardiovascular: Rate/Rhythm: regular rate and regular rhythm Vessels: normal peripheral pulses Extremities: no edema Gastrointestinal (Abdomen): normal bowel sounds, soft, nontender, no hepatosplenomegaly Musculoskeletal: S/p back surgery, pedal pushes and pulls strong bilaterally, drain in place draining bloody drainage Skin: no rashes, warm and dry Neurologic: PERRL, EOMI, accommodation nl, no face palsy, no dysarthria Psychiatric: A+Ox3, euthymic affect Results & Data Results & Data ([facility]) Vital Signs (Past 12 Hours) Vital Signs Temp Pulse Resp BP BP Pulse Ox O2 Del Method 08/30/22 15:00 36.6 C 80 18 120/64 93 Room Air 08/30/22 14:30 36.5 C 85 18 116/70 93 Room Air 08/30/22 14:00 78 18 116/66 93 Room Air 08/30/22 13:45 36.6 C 81 19 132/86 97 Room Air 08/30/22 13:10 36.8 C 77 7 L 121/62 97 Room Air 08/30/22 12:50 77 15 119/49 L 96 Oxymask 08/30/22 12:40 77 8 L 123/64 97 Oxymask 08/30/22 13:20 36.8 C 78 12 122/70 97 Room Air 08/30/22 13:00 36.8 C 77 10 L 117/64 96 Room Air 08/30/22 12:30 73 12 91/65 L 98 Oxymask 08/30/22 12:22 37.1 C 79 10 L 104/66 94 Oxymask 08/30/22 08:31 36.5 C 73 20 122/65 93 Room Air O2 Flow Rate 08/30/22 15:00 08/30/22 14:30 08/30/22 14:00 08/30/22 13:45 08/30/22 13:10 0 08/30/22 12:50 3 08/30/22 12:40 5 08/30/22 13:20 0 08/30/22 13:00 0 08/30/22 12:30 5 08/30/22 12:22 5 08/30/22 08:31
--- NOTE | 2022-08-30 15:20 | Pharmacy Report ---
Pharmacy Glycemic Short Note 2 - Date of Service August 30, 2022 - Glycemic Short BSG Results (Last 24 hours): 08/30/22 08/30/22 08:27 12:24 POC Glucose 151 H 171 H OUTPATIENT ANTIDIABETIC REGIMEN: * Novolog Insulin pump (1.6 units/hr 1200 [id number] and 1.7 units/hr 1600 to 0000) * Jardiance 25mg ASSESSMENT: 08/31/22 * BSG has been stable the last 24 hrs. Notified provider (Ivory Hanson) that pharmacy is signing off on consult, effective now. 08/30/22 * Bruna Do is 51 yr old female s/p Lumber spinal stenosis. A T1DM on Novolog insulin pump outpatient. Per nurse, patient is able to manage her own insulin and is aware she possibly received Dexamethasone IV overnight. Post-op BSG was 171 mg/dl. Overnight accucheck was added to patient profile incase BSG runs high overnight. PLAN FOR INPATIENT GLYCEMIC CONTROL: * Hold outpatient oral diabetes medications * Insulin pump continued (patient to manage)
[2022-08-30] MEDS ORDERED: DEXTROSE 50% 50 ML SYRINGE IV PRN (15:30)
[2022-08-30] MEDS ORDERED: GLUCAGON FOR INJ 1 MG VIAL IM PRN (15:30)
[2022-08-30] MEDS ORDERED: GLUCOSE 10 TAB/TUBE PO PRN (15:30)
[2022-08-30] MEDS ORDERED: CARBOHYDRATES FOR HYPOGLYCEMIA PO PRN (15:30)
[2022-08-30] MEDS ORDERED: GLUCOSE 40% GEL 15 GM TUBE PO PRN (15:30)
[2022-08-30] MEDS ORDERED: GABAPENTIN 300 MG CAP PO SCH (16:30)
[2022-08-30] MEDS: ceFAZolin 2000MG 2,000 MG/15 ML SYR IV SCH (17:50)
[2022-08-30] MEDS: INSULIN, Rapid-Acting PUMP SCH ×2 (17:59→20:55)
[2022-08-30] MEDS: HYDROCODONE/ACETAMOPHEN 5/325MG TAB PO PRN (20:17)
[2022-08-30] MEDS: DOCUSATE SODIUM/SENNA 50/8.6MG TAB PO SCH (20:47)
[2022-08-30] MEDS: ROSUVASTATIN CALCIUM 5 MG TAB PO SCH (20:47)
[2022-08-30] MEDS: lisinopril 2.5 MG TAB PO SCH (20:48)
[2022-08-30] MEDS: MAGNESIUM OXIDE 400 MG TAB PO SCH (20:48)
[2022-08-30] MEDS: buPROPion SR 150 MG TABCR PO SCH (20:49)
[2022-08-30] MEDS: GABAPENTIN 300 MG CAP PO SCH (20:54)
[2022-08-30] MEDS ORDERED: GABAPENTIN 600 MG TAB PO SCH (21:00)
[2022-08-31] MEDS: INSULIN, Rapid-Acting PUMP SCH ×6 (00:20→20:55)
[2022-08-31] MEDS: ceFAZolin 2000MG 2,000 MG/15 ML SYR IV SCH (01:29)
[2022-08-31] MEDS: SODIUM CHLORIDE 0.9% 1000ML 1,000 ML IV SCH (01:58)
[2022-08-31] MEDS: HYDROCODONE/ACETAMOPHEN 5/325MG TAB PO PRN ×2 (03:51→23:08)
[2022-08-31] MEDS: POLYETHYLENE (MIRALAX) 17 GM PACK PO SCH ×4 (05:30→23:08)
[2022-08-31 07:21] LABS: Basophils # (auto) 0.02 K/uL (0-0.2); Basophils % (auto) 0.2 %; Eosinophils # (auto) 0.02 K/uL (0-0.50); Eosinophils % (auto) 0.2 %; Hematocrit (blood only) 36.2 % (34.1-44.9); Hemoglobin 11.5 g/dl (12.0-16.0); Immature Granulocytes # (auto) 0.14 K/uL (0.00-0.02); Immature Granulocytes % (auto) 1.6 %; Lymphocytes # (auto) 1.89 K/uL (1.2-3.4); Lymphocytes % (auto) 21.4 %; Mean Corpuscular Hemoglobin 29.8 pg (25.0-34.0); Mean Corpuscular Hgb Conc 31.8 g/dL (32.0-36.0); Mean Corpuscular Volume 93.8 fL (80.0-100.0); Mean Platelet Volume 9.5 fL (9.4-12.3); Monocytes # (auto) 0.62 K/uL (0.24-0.82); Neutrophils # (auto) 6.15 K/uL (1.4-6.5); Neutrophils % (auto) 69.6 %; Platelet Count 212 K/uL (130-400); RDW Coefficient of Variation 13.4 % (11.5-14.5); RDW Standard Deviation 46.2 fL (36.4-46.3); Red Blood Count 3.86 M/uL (3.93-5.22); White Blood Count 8.84 K/ul (4.8-10.8)
[2022-08-31 07:48] LABS: BUN Creatinine Ratio 15.2 (10-20); Calcium 8.1 mg/dl (8.5-10.1); Creatinine Clr Calc Pharmacy 90.6 ml/min; Est GFR (African American) 82.4 ml/min; Est GFR (Non-African American) 71.1 ml/min; Potassium 4.5 mmol/L (3.5-5.1)
[2022-08-31 07:53] LABS: Estimated Average Glucose 151 mg/dl; Hemoglobin A1C 6.9 % (4.5-5.6)
[2022-08-31] MEDS: FERROUS SULFATE 325 MG TAB PO SCH (08:02)
[2022-08-31] MEDS: ASPIRIN 81 MG ECTAB PO SCH (08:02)
[2022-08-31] MEDS: MULTIVITAMIN TAB PO SCH (08:02)
[2022-08-31] MEDS: LORATADINE 10 MG TAB PO SCH (08:02)
[2022-08-31] MEDS: CHOLECALCIFEROL 1,000 UNITS 25 MCG TAB PO SCH (08:02)
[2022-08-31] MEDS: dexAMETHasone 6 MG in SYRINGE 0 ML IV SCH (08:02)
[2022-08-31] MEDS: buPROPion SR 150 MG TABCR PO SCH ×2 (08:03→20:51)
[2022-08-31] MEDS: TOCOPHERYL, DL-ALPHA 100 UNITS CAP PO SCH (08:03)
[2022-08-31] MEDS: MAGNESIUM OXIDE 400 MG TAB PO SCH ×2 (08:03→20:51)
[2022-08-31] MEDS: VITAMIN B COMPLEX TAB PO SCH (08:04)
--- NOTE | 2022-08-31 08:26 | Orthopedic Progress Note ---
Date of Service August 31, 2022 Assessment & Plan (1) Neurogenic claudication due to lumbar spinal stenosis: Plan: This time initiate physical therapy monitor PRASANTH operatively discharge home in the next few days. Admission and Anticipated Discharge Date Admission Date: August 30, 2022 Subjective Back pain is controlled leg symptoms markedly improved Physical Exam Physical Exam: Patient is comfortable here. She is constricted testing. Results & Data ([facility]) Vital Signs (Past 12 Hours) Vital Signs Temp Pulse Resp BP BP Pulse Ox O2 Del Method 08/31/22 07:34 37.2 C 80 16 115/73 93 Room Air 08/31/22 03:34 37.1 C 89 16 115/64 95 Room Air 08/31/22 00:24 37.1 C 89 16 109/63 95 Room Air 08/30/22 22:56 37.0 C 89 18 99/57 L 92 Room Air 08/30/22 20:46 36.9 C 88 16 114/64 95 Room Air
--- NOTE | 2022-08-31 13:59 | Hospitalist Progress Note ---
Date of Service August 31, 2022 Assessment & Plan (1) Neurogenic claudication due to lumbar spinal stenosis: Plan: POD#0 L3-L4 and L5-S1 decompression, L3-S1 fusion, L4-L5 hardware removal by Dr. Jose Activity and wound care orders as per ortho Pain control with bowel regimen PT/OT Monitor H/H for acute blood loss anemia and transfuse blood products PRN EBL 500 cc Clinically much better and medically stable Likely discharge tomorrow from primary service point of view (2) Diabetes mellitus, type 2: Plan: On insulin pump Hgb A1c 7.1 05/2022 Patient to continue self management with insulin pump while admitted, discussed with glycemic pharmacy who will follow along as well She is well educated about the insulin pump that she has been using Related after her to decide the doses of insulin that she needs (3) HTN (hypertension): Plan: BP controlled, continue lisinopril (4) HLD (hyperlipidemia): Plan: Continue statin (5) DVT prophylaxis: Plan: TEDs/SCDs as per spine Ortho Thank you for this consultation. We will follow the patient with you during their hospital stay. You can reach a member of the [facility] Hospitalist Team 11/04 via the [facility] Hospitalist role in [place] Text. Remains medically stable Admission and Anticipated Discharge Date Admission Date: August 30, 2022 Subjective 08/31/2022 The patient was seen and examined in medical floor She has been stable and denies any significant pain She will be going home tomorrow as per the primary Review of Systems Review of Systems: ROS per HPI, all other systems reviewed and negative Physical Exam Physical Exam: Standing outside the bed without any acute symptoms Constitutional: well developed, well nourished and + obese; not ill appearing Eyes: PERRL, conjunctivae normal, anicteric sclerae ENMT: external ear and nose normal, oropharynx normal Neck: trachea midline, no thyromegaly Respiratory: + respiratory distress Auscultation: lungs clear to auscultation bilaterally Cardiovascular: Rate/Rhythm: regular rate and regular rhythm; not tachycardic Heart Sounds: normal S1 and normal S2; no murmur Extremities: no edema Gastrointestinal (Abdomen): Inspection/Auscultation: normal bowel sounds; abdomen not distended Percussion/Palpation: abdomen soft; abdomen nontender Musculoskeletal: No acute arthritis in any joint Neurologic: normal touch/pain/proprioception and moves all extremities; no focal motor deficits Psychiatric: A+Ox3, euthymic affect Lymphatic: no cervical or axillary lymphadenopathy Results & Data Results & Data ([facility]) Vital Signs (Past 12 Hours) Vital Signs Temp Pulse Resp BP Pulse Ox O2 Del Method 08/31/22 07:34 37.2 C 80 16 115/73 93 Room Air 08/31/22 03:34 37.1 C 89 16 115/64 95 Room Air Laboratory Results Short CBC 08/31/22 Range/Units 06:39 WBC 8.84 (4.8-10.8) K/ul Hgb 11.5 L (12.0-16.0) g/dl Hct 36.2 (34.1-44.9) % Plt Count 212 (130-400) K/uL BMP 08/31/22 06:39 Sodium 138 Potassium 4.5 Chloride 104 Carbon Dioxide 30 BUN 14 Creatinine 0.92 Glucose 158 H Calcium 8.1 L Medications Administered Current Inpatient Medications Acetaminophen (Acetaminophen 500 Mg Tab) 1,000 mg PO Q8H PRN PRN Reason: MILD Pain Scale 1,2,3 & Pre PT Stop: 09/29/22 13:37 Hydrocodone Bitart/Acetaminophen (Hydrocodone/Acetamophen 5/325mg Tab) 1 - 2 tab PO Q4H PRN PRN Reason: Pain & Pre PT Stop: 09/13/22 13:37 Last Admin: 08/31/22 03:51 Dose: 1 tab Al Hydrox/Mg Hydrox/Simethicone (Aluminum/Magnesium Susp 30 Ml Udc) 30 ml PO Q6H PRN PRN Reason: Dyspepsia Stop: 09/29/22 13:37 Albuterol (Albuterol Hfa 8 Gm Inhaler) 2 puffs INH Q6R PRN PRN Reason: Shortness Of Breath Stop: 09/29/22 14:15 Aspirin (Aspirin 81 Mg Ectab) 81 mg PO QAM [facility] Stop: 09/30/22 08:59 Last Admin: 08/31/22 08:02 Dose: 81 mg Bisacodyl (Bisacodyl 10 Mg Supp) 10 mg SC DAILY PRN PRN Reason: Constipation Stop: 09/29/22 13:37 Bupropion HCl (Bupropion Sr 150 Mg Tabcr) 150 mg PO BID [facility] Stop: 09/29/22 20:59 Last Admin: 08/31/22 08:03 Dose: 150 mg Dextrose (Dextrose 50% 50 Ml Syringe) 25 - 50 ml IV UD PRN; Protocol PRN Reason: Hypoglycemia Protocol Stop: 09/29/22 15:29 Diphenhydramine HCl (Diphenhydramine Capsule 25 Mg Cap) 25 mg PO Q6H PRN PRN Reason: Allergic Rhinitis/Insomnia Stop: 09/29/22 13:37 Famotidine (Famotidine 20 Mg Tab) 20 mg PO Q12H PRN PRN Reason: Dyspepsia Stop: 09/29/22 13:37 Ferrous Sulfate (Ferrous Sulfate 325 Mg Tab) 325 mg PO QAM [facility] Stop: 09/30/22 08:59 Last Admin: 08/31/22 08:02 Dose: 325 mg Gabapentin (Gabapentin 300 Mg Cap) 600 mg PO QDD [facility] Stop: 09/30/22 16:29 Gabapentin (Gabapentin 300 Mg Cap) 300 mg PO HS [facility] Stop: 09/29/22 20:59 Last Admin: 08/30/22 20:54 Dose: 300 mg Glucagon (Glucagon For Inj 1 Mg Vial) 1 mg IM UD PRN; Protocol PRN Reason: Hypoglycemia Protocol Stop: 09/29/22 15:29 Glucose (Glucose 40% Gel 15 Gm Tube) 15 - 30 gm PO UD PRN; Protocol PRN Reason: Hypoglycemia Protocol Stop: 09/29/22 15:29 Glucose (Glucose 10 Tab/Tube) 4 - 8 tab PO UD PRN; Protocol PRN Reason: Hypoglycemia Protocol Stop: 09/29/22 15:29 Hydromorphone HCl (Hydromorphone Inj 0.5 Mg/0.5 Ml Syr) 0.5 mg IV Q3H PRN PRN Reason: MODERATE Pain (Scale 4,5,6) & Pre PT Stop: 09/13/22 13:37 Hydromorphone HCl (Hydromorphone Inj 1 Mg/Ml Syringe) 1 mg IV Q3H PRN PRN Reason: SEVERE Pain (Scale 7,8,9,10) Stop: 09/13/22 13:37 Hydroxyzine HCl (Hydroxyzine Hcl 25 Mg Tab) 25 mg PO Q8H PRN PRN Reason: Anxiety Stop: 09/29/22 13:37 Promethazine HCl 12.5 mg/ (Sodium Chloride) 50.5 mls @ 202 mls/hr IV Q6H PRN PRN Reason: Nausea &/or Vomiting Stop: 09/29/22 13:37 Lorazepam 0.5 mg/ Syringe 0.5 mls @ 2 mls/min IV Q8H PRN PRN Reason: Sedation/Anxiety Stop: 09/29/22 13:37 Dexamethasone 6 mg/ Syringe 1.5 mls @ 1 mls/min IV DAILY [facility] Stop: 09/02/22 09:02 Last Admin: 08/31/22 08:02 Dose: 1 mls/min Influenza Virus Vaccine Quadrival (Do Not Administer Flu Vaccine) 1 each N/A PRN PRN PRN Reason: Notification Stop: 09/29/22 13:37 Insulin Aspart (Insulin, Rapid-Acting Pump) 1 each N/A [facility]; Protocol Stop: 09/29/22 16:29 Last Admin: 08/31/22 09:47 Dose: 1 each Insulin Aspart (Insulin Aspart 100 Units/Ml Vial) 0 units SC PRN PRN PRN Reason: Pump Refill Use ONLY Stop: 09/29/22 15:14 Lidocaine (Lidocaine 5% Oint 30 Gm Tube) 1 appln TOP DAILY PRN PRN Reason: NEUROPATHY Stop: 09/29/22 13:37 Lisinopril (Lisinopril 2.5 Mg Tab) 2.5 mg PO QPM [facility] Stop: 09/29/22 20:59 Last Admin: 08/30/22 20:48 Dose: 2.5 mg Loratadine (Loratadine 10 Mg Tab) 10 mg PO QAM [facility] Stop: 09/30/22 08:59 Last Admin: 08/31/22 08:02 Dose: 10 mg Lorazepam (Lorazepam 0.5 Mg Tab) 0.5 mg PO Q8H PRN PRN Reason: Sedation/Anxiety Stop: 09/29/22 13:37 Magnesium Hydroxide (Magnesium Hydroxide Susp 30 Ml Udc) 30 ml PO Q24H PRN PRN Reason: Constipation Stop: 09/29/22 13:37 Magnesium Oxide (Magnesium Oxide 400 Mg Tab) 400 mg PO BID [facility] Stop: 09/29/22 20:59 Last Admin: 08/31/22 08:03 Dose: 400 mg Metoclopramide HCl (Metoclopramide Hcl Inj 5 Mg/Ml 2 Ml Vial) 10 mg IV Q6H PRN PRN Reason: Nausea &/or Vomiting Stop: 09/29/22 13:37 Miscellaneous (Empagliflozin~Order Awaiting Action) 1 each N/A QS [facility] Stop: 09/29/22 15:59 Last Admin: 08/31/22 08:04 Dose: Not Given Miscellaneous (Carbohydrates For Hypoglycemia ) 15 - 30 gm PO UD PRN PRN Reason: Hypoglycemia Treatment Stop: 09/29/22 15:29 Multivitamins (Multivitamin Tab) 1 tab PO QAM [facility] Stop: 09/30/22 08:59 Last Admin: 08/31/22 08:02 Dose: 1 tab Naloxone HCl (Naloxone Hcl 0.4 Mg/1 Ml Vial/Carp) 0.1 mg IV Q5M PRN PRN Reason: Oversedation/Resp depression Stop: 09/29/22 13:37 Ondansetron HCl (Ondansetron Inj 2 Mg/Ml 2 Ml Vial) 4 mg IV Q6H PRN PRN Reason: Nausea &/or Vomiting Stop: 09/29/22 13:37 Ondansetron HCl (Ondansetron 4 Mg Od Tab) 4 mg PO Q6H PRN PRN Reason: Nausea Stop: 09/29/22 13:37 Pneumococcal Polyvalent Vaccine (Do Not Administer Pneumococcal Vaccine) 1 each N/A PRN PRN PRN Reason: Notification Stop: 09/29/22 13:37 Polyethylene Glycol (Polyethylene (Miralax) 17 Gm Pack) 17 gm PO Q6 [facility] Stop: 09/30/22 05:59 Last Admin: 08/31/22 11:53 Dose: 17 gm Rosuvastatin Calcium (Rosuvastatin Calcium 5 Mg Tab) 5 mg PO HS [facility] Stop: 09/29/22 20:59 Last Admin: 08/30/22 20:47 Dose: 5 mg Senna/Docusate Sodium (Docusate Sodium/Senna 50/8.6mg Tab) 2 tab PO HS [facility] Stop: 09/29/22 20:59 Last Admin: 08/30/22 20:47 Dose: 2 tab Sodium Biphosphate/Sodium Phosphate (Sod Phosphate/Sod Biphosphate Enema 132 Ml Btl) 132 ml SC ONE PRN PRN Reason: Constipation Stop: 09/29/22 13:37 Tramadol HCl (Tramadol Hcl 50 Mg Tablet) 50 - 100 mg PO Q4H PRN PRN Reason: Moderate-Severe pain & Pre PT Stop: 09/29/22 13:37 Vitamin B Complex (Vitamin B Complex Tab) 1 tab PO [facility] Stop: 09/30/22 08:59 Last Admin: 08/31/22 08:04 Dose: 1 tab Vitamin D (Cholecalciferol 1,000 Units 25 Mcg Tab) 1,000 units PO [facility] Stop: 09/30/22 08:59 Last Admin: 08/31/22 08:02 Dose: 1,000 units Vitamin E (Tocopheryl, Dl-Alpha 100 Units Cap) 100 units PO [facility] Stop: 09/30/22 08:59 Last Admin: 08/31/22 08:03 Dose: 100 units
[2022-08-31] MEDS ORDERED: GABAPENTIN 300 MG CAP PO SCH (16:30)
[2022-08-31] MEDS: ROSUVASTATIN CALCIUM 5 MG TAB PO SCH (20:51)
[2022-08-31] MEDS: lisinopril 2.5 MG TAB PO SCH (20:52)
[2022-08-31] MEDS: GABAPENTIN 300 MG CAP PO SCH (20:52)
[2022-08-31] MEDS: DOCUSATE SODIUM/SENNA 50/8.6MG TAB PO SCH (20:52)
[2022-09-01] MEDS: POLYETHYLENE (MIRALAX) 17 GM PACK PO SCH (05:48)
[2022-09-01 07:05] LABS: Basophils # (auto) 0.02 K/uL (0-0.2); Basophils % (auto) 0.2 %; Eosinophils # (auto) 0.08 K/uL (0-0.50); Eosinophils % (auto) 0.9 %; Hematocrit (blood only) 35.4 % (34.1-44.9); Hemoglobin 11.4 g/dl (12.0-16.0); Immature Granulocytes # (auto) 0.02 K/uL (0.00-0.02); Immature Granulocytes % (auto) 0.2 %; Lymphocytes # (auto) 2.27 K/uL (1.2-3.4); Lymphocytes % (auto) 25.3 %; Mean Corpuscular Hemoglobin 29.8 pg (25.0-34.0); Mean Corpuscular Hgb Conc 32.2 g/dL (32.0-36.0); Mean Corpuscular Volume 92.7 fL (80.0-100.0); Mean Platelet Volume 9.5 fL (9.4-12.3); Monocytes # (auto) 0.58 K/uL (0.24-0.82); Monocytes % (auto) 6.5 %; Neutrophils % (auto) 66.9 %; Platelet Count 210 K/uL (130-400); RDW Coefficient of Variation 13.7 % (11.5-14.5); RDW Standard Deviation 46.5 fL (36.4-46.3); Red Blood Count 3.82 M/uL (3.93-5.22); White Blood Count 8.97 K/ul (4.8-10.8)
[2022-09-01 07:31] LABS: BUN Creatinine Ratio 24.7 (10-20); Calcium 8.5 mg/dl (8.5-10.1); Creatinine Clr Calc Pharmacy 93.6 ml/min; Est GFR (African American) 85.8 ml/min; Potassium 4.1 mmol/L (3.5-5.1)
[2022-09-01] MEDS: CHOLECALCIFEROL 1,000 UNITS 25 MCG TAB PO SCH (08:52)
[2022-09-01] MEDS: MAGNESIUM OXIDE 400 MG TAB PO SCH (08:52)
[2022-09-01] MEDS: VITAMIN B COMPLEX TAB PO SCH (08:52)
[2022-09-01] MEDS: FERROUS SULFATE 325 MG TAB PO SCH (08:53)
[2022-09-01] MEDS: ASPIRIN 81 MG ECTAB PO SCH (08:53)
[2022-09-01] MEDS: dexAMETHasone 6 MG in SYRINGE 0 ML IV SCH (08:53)
[2022-09-01] MEDS: TOCOPHERYL, DL-ALPHA 100 UNITS CAP PO SCH (08:53)
[2022-09-01] MEDS: buPROPion SR 150 MG TABCR PO SCH (08:53)
[2022-09-01] MEDS: MULTIVITAMIN TAB PO SCH (08:54)
[2022-09-01] MEDS: LORATADINE 10 MG TAB PO SCH (08:54)
[2022-09-01] MEDS: INSULIN, Rapid-Acting PUMP SCH ×2 (09:28→13:20)
--- NOTE | 2022-09-01 12:55 | Hospitalist Progress Note ---
Date of Service September 01, 2022 Assessment & Plan (1) Neurogenic claudication due to lumbar spinal stenosis: Plan: per Dr. Reynolds's notes with addendum: POD#1 L3-L4 and L5-S1 decompression, L3-S1 fusion, L4-L5 hardware removal by Dr. Jose Stable overall Hemoglobin 11.4 (2) Diabetes mellitus, type 2: Plan: On insulin pump Hgb A1c 7.1 05/2022 Patient to continue self management with insulin pump while admitted, discussed with glycemic pharmacy who will follow along as well She is well educated about the insulin pump that she has been using --BSG 115, 140 (3) HTN (hypertension): Plan: BP controlled, continue lisinopril (4) HLD (hyperlipidemia): Plan: Continue statin (5) DVT prophylaxis: Plan: TEDs/SCDs as per spine Ortho Thank you for this consultation. We will follow the patient with you during their hospital stay. You can reach a member of the [facility] Hospitalist Team 11/04 via the Orthopaedic Hospitalist role in [place] Text. Remains medically stable Admission and Anticipated Discharge Date Admission Date: August 30, 2022 Subjective Follow-up for status post back surgery, etc. Seen resting in bed, sitting up, in good spirits States she feels fine overall Minimal discomfort over surgical site Ambulating in the hallways with no problems no chest pain, dyspnea, palpitations, dizziness Review of Systems Review of Systems: all noted and negative except for above Physical Exam Physical Exam: General- oriented x 3, not in distress, speaks in sentences w ith no effort or accessory muscle use Eyes- anicteric Neck- no JVD Lungs- clear breath sounds bilaterally, no rales/wheezes Heart- normal rate, regular rhythm; no murmurs Abdomen- normal bowel sounds, nondistended, soft, nontender Extremities- no pretibial edema, no calf tenderness Neuro- alert, oriented x 3; no gross focal neurologic deficits Skin- warm & dry Results & Data Results & Data ([facility]) Vital Signs (Past 12 Hours) Vital Signs Temp Pulse Resp BP Pulse Ox O2 Del Method 09/01/22 07:26 36.8 C 74 16 112/68 97 Room Air all noted and reviewed including below
--- NOTE | 2022-09-01 12:59 | Discharge Summary ---
Date of Service September 01, 2022 Admission HPI Per Admitting Provider This is a 50-year-old female known to me the presents with chronic chest and back and bilateral leg pain. Failing since course of nonoperative care she is here for surgical invention. Principal Diagnosis Lumbar spinal stenosis with neurogenic claudication Discharge Data Allergies Allergy/AdvReac Type Severity Reaction Status Date / Time latex Allergy Intermediate Blistering Verified 08/30/22 08:22 (with gloves) ragweed pollen Allergy Mild Congestion Verified 08/30/22 08:22 oxycodone AdvReac Mild Vomiting, Verified 08/30/22 08:22 headache, constipation pregabalin [From Lyrica] AdvReac Mild Agitation, Verified 08/30/22 08:22 rash Consultations 08/30/22 13:38 Consult Hospitalist Routine Procedures Performed Operation Date: 07/28/22 11:35 <No data on this case meets the specified criteria> Operation Date: 08/30/22 09:35 Actual Procedures p L3-L4 and L5-S1 Decompression, L3-S1 Fusion, Interbody Fusion at L3-L4, (Not Applicable) - Jam Jose DO s L4-L5 Hardware Removal with Spinal Cord Monitoring(Not Applicable) - Jam Jose DO Ordered Studies 08/30/22 09:35 FL lumbar spine 2-3V Routine Hospital Course (1) Neurogenic claudication due to lumbar spinal stenosis: Patient with lumbar decompression fusion tolerated this well was taken to orthopedic for postop labor postop day 1 she was up and ambulating. Postop day #2. She had excellent strength testing PRASANTH drain decreasing appropriately. Pain well controlled. Separately discharged home with her drain intact we will follow-up in the office for change removal and dressing change. Further details can be found in chart for review. Total Time Total Time Spent Total Time Spent (In Minutes): 20 minutes Discharge Plan Discharge Items Patient Disposition: Home - Self-Care Reason For Visit: Intervertebral Disc Disorders with Radiculopathy, Discharge Diagnosis: Lumbar spinal stenosis with neurogenic claudication Activity: As commented below Non-emergency contact: Primary Care Provider Call non-emergency contact if: you have any medication questions Follow-up/Referrals: Marce Shine PA-C [Primary Care Provider] - Diet: Regular Addtl Attending Provider Instructions: ACTIVITY RECOMMENDATIONS: SELF CARE INSTRUCTIONS AFTER THORACIC/LUMBAR FUSIONS 1. You may walk to your tolerance. It is good exercise for your legs and back. Expect some back and intermittent leg aches and pains. 2. You may perform "counter-top" level activities (make a sandwich, brando with a project, etc.). 3. No bending or lifting of more than 10 pounds or back twisting of any nature (roll like a log when turning in bed). 4. You may ride in a car for 20-30 minutes at a time. No driving until after your first visit with your doctor. 5. Frequent changes of position and restricting sitting to 30 minutes at a time will help limit the amount of back spasms and stiffness you may experience. 6. You may discontinue the use of ambulatory aids (cane, crutches, etc.) once your strength and confidence allow. 7. You may site interpreter the shower and let water strike your incision when you arrive home at least once daily. Do not take a tub bath, sit in a hot tub or go into a swimming pool until after your first recheck in the office. SPECIAL CARE INSTRUCTIONS: VERY IMPORTANT TO READ AND REVIEW A. Your surgical incision has been closed with a cosmetic suture under the skin that will dissolve in about 6 weeks. In 14 days, you can use a pair of clean scissors and cut the suture that is left outside of the skin at the ends of your incision. 1. The small skin tapes can be removed 7 days after surgery if they have not fallen off by that point. 2. You may keep the wound open to air as much as possible to promote healing after post-op day number 5 unless told otherwise by your doctor. 3. If you think the wound looks like it is becoming infected (redness or worsening drainage) and/or you are experiencing fever, chill or worsening back pain and muscle spasms, contact the office so that we may evaluate you as soon as possible. B. Complications are uncommon, but please contact us if you have any signs or symptoms of: 1. wound infection (fever higher than 102.5 degrees F, redness, separation of wound, drainage, or increasing pain from the incision) 2. blood clots in legs (pain, swelling, redness and warmth in legs) 3. urinary tract infection (fever higher than 102.5 degrees F, burning upon urination or increased frequency of urination) 4. nerve problems (inability to walk on your toes or heels, numbness, loss of bowel or bladder control) 5. any other symptoms that concern you C. Please call the office at if you have any concerns or questions about your operation or recovery. D. No smoking! Smoking drastically decreases the chance of a solid fusion. E. Do not take any anti-inflammatory medications (Indocin, Advil, Motrin, Aspirin, Naprosyn, etc.) as these may inhibit the chance of a solid fusion. Tylenol is okay to take for pain. MANAGING PAIN AFTER SPINAL SURGERY 1. Narcotic medication is intended for short-term use and will be provided for surgical pain. Surgical pain usually lasts for a period of 4-6 weeks. Narcotic medication includes Percocet, Vicodin, Darvocet, Tylenol #3 or Lortab. 2. Longer-term pain is more appropriately treated with non-narcotic medication such as Tylenol ES. 3. Muscle spasm is not appropriately treated with narcotics. Muscle relaxers such as Soma, Flexeril or Skelaxin can be used along with Tylenol ES. 4. Remember that we all live with some "aches and pains". This is not unusual or uncommon after an injury or as we get older. a. Back pain is expected and may include muscle spasms for 4 to 6 weeks aft er surgery. The pain should gradually improve. If the pain worsens for no apparent reason, please contact the office. b. Intermittent leg pain may also be experienced and should not be concerned about unless it worsens for no apparent reason. If so, please contact the office. 5. We will provide appropriate medication within the normal guidelines of their prescribed use. We will also be very cautious and aware of potential abuse and extended duration of patients' medication needs. a. Pain medications are for your comfort and to assist with sleep and rest so that the tissue can heal. They are not provided in order to return to normal activity and should not be used through the day. To do so or worsening pain at night can result from ongoing tissue damage and development of tolerance to the prescribed medicine. 6. Please allow 2-3 days to process refills. Prescriptions will not be mailed but must be picked up at the office. FOLLOW UP VISIT: Keep your scheduled follow-up appointment. Any questions, please call the office at . Pending Studies at Discharge: No Stand-Alone Forms: [facility] [employer], Smoking Cessation Medications and DC Order Prescriptions: New hydrocodone-acetaminophen 5-325 mg tablet 1 tab PO Q4 PRN (Reason: pain) Qty: 30 0RF Rx Instructions: 1 tab PO PRN; Continued multivitamin Tablet 1 tab PO QAM bupropion HCl [Wellbutrin SR] 150 mg Tablet Sustained-Release 12 Hr 150 mg PO BID vitamin E 100 unit Capsule 100 unit PO QAM insulin aspart U-100 [Novolog U-100 Insulin aspart] 100 unit/mL Solution 1 sliding scale dose SUBCUT USEASDIRECTD Rx Instructions: INSULIN PUMP. Basal is 1.3units per hr vitamin B complex Tablet 1 tab PO QAM lisinopril [Zestril] 2.5 mg Tablet 2.5 mg PO QPM cholecalciferol (vitamin D3) [Vitamin D3] 25 mcg (1,000 unit) Capsule 1,000 unit PO QAM Claritin Liqui-Gel 10 mg Capsule 10 mg PO QAM lidocaine 5 % Ointment 1 applic TOPICAL UD PRN (Reason: NEUROPATHY ) Rx Instructions: Apply topically to affected area on both feet daily Jardiance 25 mg Tablet 25 mg PO QAM albuterol sulfate 90 mcg/actuation Aerosol Powdr Breath Activated 2 inh INHALATION Q6H PRN (Reason: Shortness Of Breath) magnesium 250 mg Tablet 250 mg PO BID aspirin 81 mg tablet,delayed release (DR/EC) 81 mg PO QAM ferrous sulfate 325 mg (65 mg iron) tablet 325 mg PO QAM Sooth Xp 1 dose UD Label Comments: 2 DROPS IN MORNING , 2 DROPS IN EVENING AND IF FEELING DRY WILL TAKE A DROP OR 2 DURING MID DAY OR AFTERNOON Metamucil (sugar) Powder 1 tsp PO QAM gabapentin 300 mg capsule 600 mg PO QDD gabapentin 300 mg capsule 300 mg PO HS rosuvastatin 5 mg tablet 5 mg PO HS Discharge Orders: Discharge Order (Routine); Ordered 09/01/22 Ordered By: Jam Braswell/Other Patient Handouts: Managing Type 2 Diabetes Admission Data Admit Date/Time: 08/30/22 12:15 Attending Provider: Jam Jose Admit Provider: Jam Jose Primary Care Provider: Marce Shine Other Providers: Starr Brown ; Gregor Frances Other Interventions: Discharge Summary Assessment (RN) Last Done: 09/01/22 12:01
== END 2022-09-01 14:28 | disposition home or self-care (01) | DRG 454 ==
LOC: ASU 08:03 → 3W 12:15